=== PATIENT | female | born 1935 | race Caucasian/White ===

== ENCOUNTER 2020-04-03 15:21 | Outpatient (REF) | payer MEDICARE, OTHER, SELFPAY ==
[2020-04-03 17:07] LABS: Alanine Aminotransferase 26 U/L (0-31); Albumin Level 4.1 g/dL (3.5-5.0); Alkaline Phosphatase 74 U/L (39-117); Anion Gap 14 (12-20); Aspartate Amino Transferase 18 U/L (5-31); Bilirubin Total 0.4 mg/dL (0.0-1.0); Blood Urea Nitrogen 26 mg/dL (9-16); Carbon Dioxide 26 mmol/L (22-29); Chloride 105 mmol/L (96-108); Estimated Glomerular Filt Rate 50; Glucose Random 112 mg/dL (60-115); Potassium 4.3 mmol/l (3.3-5.1); Sodium 141 mmol/L (135-145); Total Protein 6.9 g/dL (6.5-8.0)
[2020-04-03 17:10] LABS: B Type Natriuretic Peptide 68 pg/mL (<100)
[2020-04-03 17:19] LABS: Hematocrit 38.5 % (37-47); Hemoglobin 12.6 g/dl (12.0-16.0); Mean Corpuscular HGB Conc 32.7 g/dl (31.0-35.0); Mean Corpuscular Hemoglobin 28.1 pg (27.0-33.0); Mean Corpuscular Volume 85.9 fL (80-98); Platelet Count 278 X10*3/uL (160-400); Red Blood Count 4.48 X10*6/uL (4.20-5.50); Red Cell Distribution Width 16.9 % (11.0-16.0); White Blood Count 7.5 X10*3/uL (4.8-10.8)
== END 2020-04-03 15:22 | disposition home or self-care (01) ==
LOC: HO.HMGCLDS 15:21
PROVIDERS: PCP Internal Medicine; Visit Provider Internal Medicine
DX: E03.9 Hypothyroidism, unspecified (principal); I10 Essential (primary) hypertension; R06.00 Dyspnea, unspecified
CPT/HCPCS: 36415; 80053; 83880; 84443; 85027

== ENCOUNTER 2020-08-21 07:02 | Outpatient (REF) | payer MEDICARE, OTHER, SELFPAY ==
[2020-08-21 11:30] LABS: Hematocrit 38.5 % (37-47); Hemoglobin 12.1 g/dl (12.0-16.0); Mean Corpuscular HGB Conc 31.4 g/dl (31.0-35.0); Mean Corpuscular Hemoglobin 27.6 pg (27.0-33.0); Mean Corpuscular Volume 87.7 fL (80-98); Mean Platelet Volume 11.1 fL (9.4-12.3); Platelet Count 231 X10*3/uL (160-400); Red Blood Count 4.39 X10*6/uL (4.20-5.50); Red Cell Distribution Width 17.4 % (11.0-16.0); White Blood Count 7.1 X10*3/uL (4.8-10.8)
[2020-08-21 11:44] LABS: Estimated Average Glucose 128 mg/dL; Hemoglobin A1c % 6.1 %
[2020-08-21 12:13] LABS: Alanine Aminotransferase 37 U/L (0-31); Alkaline Phosphatase 69 U/L (39-117); Anion Gap 15 (12-20); Aspartate Amino Transferase 25 U/L (5-31); Bilirubin Total 0.6 mg/dL (0.0-1.0); Blood Urea Nitrogen 19 mg/dL (9-16); Calcium 8.7 mg/dL (8.4-10.2); Carbon Dioxide 24 mmol/L (22-29); Chloride 106 mmol/L (96-108); Cholesterol 166 mg/dL; Estimated Glomerular Filt Rate 50; Glucose Fasting 108 mg/dL (60-99); HDL Cholesterol 61 mg/dL; LDL Cholesterol Calculated 92 mg/dl; Potassium 4.2 mmol/L (3.3-5.1); Sodium 141 mmol/L (135-145); Total Protein 6.8 g/dL (6.5-8.0); Triglycerides 67 mg/dL
[2020-08-21 12:36] LABS: TSH reflex Free T4 2.44 uIU/mL (0.32-4.0)
== END 2020-08-21 07:03 | disposition home or self-care (01) ==
LOC: HO.HMGCLDS 07:02
PROVIDERS: PCP Internal Medicine; Visit Provider Internal Medicine
DX: E03.9 Hypothyroidism, unspecified (principal); E11.9 Type 2 diabetes mellitus without complications; I10 Essential (primary) hypertension; K58.9 Irritable bowel syndrome, unspecified; R06.00 Dyspnea, unspecified
CPT/HCPCS: 36415; 80053; 80061; 83036; 84443; 85027

== ENCOUNTER 2020-09-26 13:57 | Outpatient (REF) | payer MEDICARE, OTHER, SELFPAY ==
--- NOTE | ~2020-09-26 | US_ITS ---
EXAMINATION: US RETROPERITONEAL LIMITED (RENAL ONLY) CLINICAL INFORMATION: Nephrolithiasis. COMPARISON: CT abdomen and pelvis without contrast dated 10/04/2019. KUBs dated 03/14/2019 and 12/19/2018. Renals only ultrasounds dated 03/14/2019 and 12/19/2018. TECHNIQUE: Real-time imaging of the kidneys. FINDINGS: RIGHT KIDNEY: 10.2 x 3.8 x 5.0 cm (SAG x AP x TRV). The kidney is normal in size, contour, and echogenicity. Renal cortical thickness is normal. No hydronephrosis. There are multiple anechoic cysts. The upper pole cyst measures 2.0 x 1.8 x 1.9, lower pole cyst measures 3.5 x 3.0 x 3.3 and a mid pole cyst measures 1.6 x 1.4 x 2.0 cm.. There are multiple clusters of echogenic stones. A lower pole echogenic stone measures 0.6 was 0.4 x 0.9 cm. Mid pole stone measures 0.6 x 0.4 x 0.8 cm. Upper pole echogenic stone measures 0.8 x 0.5 x 0.6 cm. LEFT KIDNEY: 11.2 x 4.9 x 4.3 cm (SAG x AP x TRV). The kidney is normal in size, contour, and echogenicity. Renal cortical thickness is normal. No hydronephrosis. There is complex cyst in midpole with septations and vascularity measuring 2.8 x 2.3 x 2.5 cm. There are several echogenic clusters of stone. A midpole stones measure 0.9 x 1.5 x 0.8 cm and 0.3 x 0.4 x 0.9 cm. An upper pole echogenic stone measures 0.4 x 0.4 x 0.3 cm in lower pole echogenic stone measures 0.8 x 0.4 x 0.7 cm. US/US renal BI IMPRESSION: Bilateral nonobstructive echogenic calculi. Bilateral renal cysts. There is a complex cyst with septations.
== END 2020-09-26 13:58 | disposition home or self-care (01) ==
LOC: HO.HMGCX 13:57
PROVIDERS: PCP Internal Medicine; Visit Provider Urology
DX: N20.0 Calculus of kidney (principal)
CPT/HCPCS: 76775

== ENCOUNTER → 2020-10-09 11:48 | Outpatient (BNVA) | payer MEDICARE, OTHER, SELFPAY | PROVIDERS: PCP Internal Medicine; Visit Provider Urology | CPT/HCPCS: Q3014 ==

== ENCOUNTER 2020-12-25 07:47 | Outpatient (REF) | payer MEDICARE, OTHER, SELFPAY ==
[2020-12-25 12:01] LABS: Estimated Average Glucose 126 mg/dL
[2020-12-25 12:15] LABS: Alanine Aminotransferase 42 U/L (0-31); Albumin Level 3.9 g/dL (3.5-5.0); Alkaline Phosphatase 73 U/L (39-117); Anion Gap 11 (12-20); Aspartate Amino Transferase 24 U/L (5-31); Bilirubin Total 0.3 mg/dL (0.0-1.0); Blood Urea Nitrogen 19 mg/dL (9-16); Calcium 8.6 mg/dL (8.4-10.2); Carbon Dioxide 27 mmol/L (22-29); Chloride 106 mmol/L (96-108); Cholesterol 189 mg/dL; Estimated Glomerular Filt Rate 51; Glucose Fasting 109 mg/dL (60-99); HDL Cholesterol 67 mg/dL; LDL Cholesterol Calculated 107 mg/dl; Potassium 4.7 mmol/L (3.3-5.1); Sodium 139 mmol/L (135-145); Total Protein 6.8 g/dL (6.5-8.0); Triglycerides 77 mg/dL
[2020-12-25 12:25] LABS: Creatinine Urine 89.13 mg/dL; Microalbum/Creatinine Ratio Ur 143.6 ug/mg cr
== END 2020-12-25 07:48 | disposition home or self-care (01) ==
LOC: HO.HMGCLDS 07:47
PROVIDERS: PCP Internal Medicine; Visit Provider Internal Medicine
DX: E11.9 Type 2 diabetes mellitus without complications (principal); E78.5 Hyperlipidemia, unspecified; E03.9 Hypothyroidism, unspecified; I10 Essential (primary) hypertension
CPT/HCPCS: 36415; 80053; 80061; 82043; 83036

== ENCOUNTER 2021-02-27 08:50 | Outpatient (REF) | payer MEDICARE, OTHER, SELFPAY ==
[2021-02-27 11:37] LABS: Estimated Average Glucose 134 mg/dL; Hemoglobin A1c % 6.3 %
[2021-02-27 11:40] LABS: Alanine Aminotransferase 22 U/L (0-31); Albumin Level 3.8 g/dL (3.5-5.0); Alkaline Phosphatase 85 U/L (39-117); Anion Gap 12 (12-20); Aspartate Amino Transferase 19 U/L (5-31); Bilirubin Total 0.3 mg/dL (0.0-1.0); Blood Urea Nitrogen 19 mg/dL (9-16); Calcium 8.9 mg/dL (8.4-10.2); Carbon Dioxide 27 mmol/L (22-29); Chloride 104 mmol/L (96-108); Cholesterol 177 mg/dL; Estimated Glomerular Filt Rate 49; Glucose Fasting 128 mg/dL (60-99); HDL Cholesterol 53 mg/dL; LDL Cholesterol Calculated 104 mg/dl; Sodium 139 mmol/L (135-145); Total Protein 6.7 g/dL (6.5-8.0); Triglycerides 103 mg/dL
== END 2021-02-27 08:51 | disposition home or self-care (01) ==
LOC: HO.HMGCLDS 08:50
PROVIDERS: PCP Internal Medicine; Visit Provider Internal Medicine
DX: E03.9 Hypothyroidism, unspecified (principal); E78.5 Hyperlipidemia, unspecified; E11.9 Type 2 diabetes mellitus without complications
CPT/HCPCS: 36415; 80053; 80061; 83036

== ENCOUNTER 2021-08-04 12:55 | Outpatient (REF) | payer MEDICARE, OTHER, SELFPAY ==
--- NOTE | ~2021-08-04 | US_ITS ---
EXAMINATION: US RENAL BILATERAL CLINICAL INFORMATION: Calculus of kidney. COMPARISON: Ultrasound renal 09/26/2020 and 03/14/2019. CT abdomen and pelvis 10/04/2019. X-ray KUB 03/14/2019. TECHNIQUE: Real-time imaging of the kidneys. FINDINGS: RIGHT KIDNEY: 10.5 x 4.0 x 5.5 cm (SAG x AP x TRV). There is a 1.5 x 1.3 x 1.4 cm upper pole cyst. There is a 1.9 x 2.0 x 2.1 cm upper pole cyst. There is a 3.9 x 3.4 x 3.1 cm lower pole cyst. Lower pole calculi measure 0.7 x 0.5 x 0.9 cm and 1.2 x 0.6 x 1.0 cm. No hydronephrosis. Diffuse renal cortical thinning. LEFT KIDNEY: 11.3 x 4.0 x 5.1 cm (SAG x AP x TRV). There is a 2.7 x 2.7 x 3.0 cm mid pole cyst with septation. There is a 1.0 x 0.4 x 1.0 cm lower pole calculus. Diffuse renal cortical thinning. No hydronephrosis. US/US renal BI IMPRESSION: 1. Bilateral renal cysts. Left renal 3.0 cm cyst with thin septation. 2. Bilateral nonobstructive calculi. No hydronephrosis.
== END 2021-08-04 12:56 | disposition home or self-care (01) ==
LOC: HO.HMGCX 12:55
PROVIDERS: PCP Internal Medicine; Visit Provider Urology
DX: N20.0 Calculus of kidney (principal)
CPT/HCPCS: 76775

== ENCOUNTER 2021-08-28 07:53 | Outpatient (REF) | payer MEDICARE, OTHER, SELFPAY ==
[2021-08-28 11:41] LABS: Estimated Average Glucose 140 mg/dL; Hemoglobin A1c % 6.5 %
[2021-08-28 12:09] LABS: TSH reflex Free T4 14.36 uIU/mL (0.32-4.0)
[2021-08-28 12:13] LABS: Alanine Aminotransferase 30 U/L (0-31); Alkaline Phosphatase 69 U/L (39-117); Anion Gap 12 (12-20); Aspartate Amino Transferase 23 U/L (5-31); Bilirubin Total 0.4 mg/dL (0.0-1.0); Blood Urea Nitrogen 19 mg/dL (9-16); Calcium 9.5 mg/dL (8.4-10.2); Carbon Dioxide 26 mmol/L (22-29); Chloride 104 mmol/L (96-108); Cholesterol 177 mg/dL; Estimated Glomerular Filt Rate 48; Glucose Fasting 121 mg/dL (60-99); HDL Cholesterol 68 mg/dL; LDL Cholesterol Calculated 92 mg/dl; Potassium 4.6 mmol/L (3.3-5.1); Sodium 137 mmol/L (135-145); Triglycerides 87 mg/dL
[2021-08-28 13:26] LABS: Free T4 (Free Thyroxine) 0.99 ng/dL (0.71-1.85)
== END 2021-08-28 07:54 | disposition home or self-care (01) ==
LOC: HO.HMGCLDS 07:53
PROVIDERS: Visit Provider Internal Medicine
DX: E03.9 Hypothyroidism, unspecified (principal); E11.9 Type 2 diabetes mellitus without complications; E78.5 Hyperlipidemia, unspecified; I10 Essential (primary) hypertension
CPT/HCPCS: 36415; 80053; 80061; 83036; 84439; 84443

== ENCOUNTER → 2021-09-02 08:30 | Outpatient (BNVA) | payer MEDICARE, OTHER, SELFPAY | PROVIDERS: PCP Internal Medicine; Visit Provider Urology | DX: Z13.89 Encounter for screening for other disorder (principal) | CPT/HCPCS: Q3014 ==

== ENCOUNTER 2021-11-04 07:50 | Outpatient (REF) | payer MEDICARE, OTHER, SELFPAY ==
[2021-11-04 12:22] LABS: TSH reflex Free T4 5.43 uIU/mL (0.32-4.0)
[2021-11-04 13:27] LABS: Free T4 (Free Thyroxine) 1.12 ng/dL (0.71-1.85)
== END 2021-11-04 07:51 | disposition home or self-care (01) ==
LOC: HO.HMGCLDS 07:50
PROVIDERS: PCP Internal Medicine; Visit Provider Internal Medicine
DX: E03.9 Hypothyroidism, unspecified (principal)
CPT/HCPCS: 36415; 84439; 84443

== ENCOUNTER → 2021-12-02 07:19 | Outpatient (REF) | payer MEDICARE, OTHER, SELFPAY ==
--- NOTE | 2021-12-02 07:28 | CA_ITS ---
Transthoracic Echocardiogram Patient (Last, First, Middle): Liya Dang, Gender: Female Date of : 1935 Age: 86 Procedure Date: 12/02/2021 Procedure Type: Transthoracic Echocardiogram Location: OP Height: 162.56 cm Weight: 80.29 kg BSA: 1.86 m2 Heart Rate: 63 bpm BP: 128 / 60 mmHg Security Installation Sales Technician: SB Referring MD: Lisa Young MD Wheel Buffer: Florian Dukes MD Symptoms: I35.0 - Nonrheumatic aortic (valve) stenosis Study Quality: Adequate ECG Rhythm: Sinus Conclusions: - 1. Normal LV systolic function with moderate LVH with grade 2 diastolic dysfunction 2. Severe aortic stenosis 3. Mild biatrial enlargement 4. Normal RV systolic pressure 5. No pericardial effusion Findings Left Ventricle Normal left ventricular size and systolic function. There is moderately increased left ventricular wall thickness. The visually estimated ejection fraction is between 65-70%. Spectral Doppler is indicative of a pseudonormal filling pattern. E/E prime ratio is >15, consistent with elevated filling pressures. Evidence suggests grade II (moderate) diastolic dysfunction. Right Ventricle Normal right ventricular cavity size and systolic function. Atria The left atrium is mildly dilated. The right atrium is mildly dilated. Aortic Valve There is moderate calcification of the aortic valve. There is severe aortic valve stenosis. The peak aortic gradient is 65 mmHg.The mean gradient is 40 mmHg. The aortic valve area is 0.84 cm2. Mitral Valve There is moderate anterior and severe posterior mitral leaflet thickening. There is severe mitral annular calcification. There is mild mitral valve regurgitation. There is mild mitral valve stenosis. Pulmonic Valve The pulmonic valve was not well visualized. Tricuspid Valve Likely normal tricuspid valve structure and function. There is mild tricuspid valve regurgitation. The right ventricular systolic pressure is normal. Normal right atrial pressure. There is no evidence of pulmonary hypertension. Great Vessels All visible segments of the aorta are normal in size. The pulmonary artery was not well visualized. Venous The inferior vena cava is normal in size and collapses greater than 50% with inspiration. Pericardium/Pleural There is no evidence of pericardial effusion. Prior Study Comparison No prior study available for comparison. Measurements 2D Linear Measurements IVSd: 1.46 0.6-0.9/0.6-1.0 cm LVIDd: 5.02 3.9-5.3/4.2-5.9 cm LVIDd Index: 2.70 2.4-3.2/2.2-3.1 cm/m2 LVIDs: 2.94 2.0-3.6 cm LVPWd: 1.42 0.7-1.1 cm LA Diam: 3.60 2.7-3.8/3.0-4.0 cm LAIDs Index: 1.94 1.5-2.3 cm/m2 LV Mass: 317.80 67-162/88-224 g LV Mass Index: 170.86 43-95/49-115 g/m2 LVOT Diam: 1.90 3.0+(-)1.3 cm 2D Systolic Function EF 4C: 69.20 >55% EF 2C: 61.30 >55% EF BiP: 65.50 >55% Mitral Valve MV VTI: 0.42 MV Pk Terrell: 1.32 MV Mn Terrell: 0.81 MV Pk Grad: 7.00 MV Mn Grad: 3.00 MV Pk E: 1.22 MV PK A: 1.00 MV Decel Time: 288.00 E/A: 1.20 E'Lateral: 5.55 E'Medial: 4.05 E/E' Med: 30.10 E/E' Lat: 22.00 PHT: 84.00 MVA PHT: 2.62 MVA Continuity: 2.05 Decel [place]: 4.23 Aortic Valve AoV Pk Terrell: 4.02 AoV Mn Terrell: 2.98 AoV VTI: 1.03 AoV Pk Grad: 65.00 Aov Mn Grad: 40.00 MARTIN Cont.VTI: 0.84 LVOT LVOT Pk Terrell: 1.27 LVOT Mn Terrell: 0.82 LVOT VTI: 0.31 LVOT Pk Grad: 6.00 LVOT Mn Grad: 3.00 LVOT Diam: 1.90 LVOT Area: 2.84 Diastolic Function MV Pk E: 1.22 MV Pk A: 1.00 E/A: 1.20 E'Medial: 4.05 E/E' Med: 30.10 E' Laterial: 5.55 E/E' Lat: 22.00 Right Ventricle TAPSE (mm): 20.40 TVS' Terrell: 10.90 Tricuspid Valve TR Pk Terrell: 2.72 TR Pk Grad: 30.00 RA Press: 3.00 RVSP: 33.00 Great Vessels Aorta Sinus of Valsalva: 2.90 2.0-3.5 cm Ao Asc: 3.30 2.1-3.4 cm Pulmonary Valve PV Pk Terrell: 1.21 Peak PV Grad: 6.00 Updated in Other Vendor System with Status of Final Florian Dukse MD electronically signed on 12/02/2021 11:30:18 AM with status of Final
== END ==
LOC: HO.CARD 07:19
PROVIDERS: Visit Provider Internal Medicine
DX: I35.0 Nonrheumatic aortic (valve) stenosis (principal); I10 Essential (primary) hypertension; E78.5 Hyperlipidemia, unspecified; E03.9 Hypothyroidism, unspecified; E11.9 Type 2 diabetes mellitus without complications
CPT/HCPCS: 93306

== ENCOUNTER 2021-12-31 09:04 | Outpatient (REF) | payer MEDICARE, OTHER, SELFPAY ==
[2021-12-31 11:19] LABS: Hematocrit 34.9 % (37.0-47.0); Hemoglobin 11.5 g/dl (12.0-16.0); Mean Corpuscular Hemoglobin 27.6 pg (27.0-33.0); Mean Corpuscular Volume 83.9 fL (80.0-98.0); Mean Platelet Volume 10.8 fL (9.4-12.3); Platelet Count 221 X10*3/uL (160-400); Red Blood Count 4.16 X10*6/uL (4.20-5.50); Red Cell Distribution Width 15.8 % (11.0-16.0); White Blood Count 6.1 X10*3/uL (4.8-10.8)
[2021-12-31 11:24] LABS: Estimated Average Glucose 128 mg/dL; Hemoglobin A1c % 6.1 %
[2021-12-31 11:35] LABS: Alanine Aminotransferase 34 U/L (0-31); Alkaline Phosphatase 66 U/L (39-117); Anion Gap 15 (12-20); Aspartate Amino Transferase 29 U/L (5-31); Bilirubin Total 0.4 mg/dL (0.0-1.0); Blood Urea Nitrogen 23 mg/dL (9-16); Calcium 9.3 mg/dL (8.4-10.2); Carbon Dioxide 23 mmol/L (22-29); Chloride 101 mmol/L (96-108); Cholesterol 155 mg/dL; Estimated Glomerular Filt Rate 47; Glucose Fasting 118 mg/dL (60-99); HDL Cholesterol 60 mg/dL; LDL Cholesterol Calculated 78 mg/dl; Potassium 4.6 mmol/L (3.3-5.1); Sodium 134 mmol/L (135-145); Total Protein 6.9 g/dL (6.5-8.0); Triglycerides 87 mg/dL
[2021-12-31 11:48] LABS: TSH reflex Free T4 6.21 uIU/mL (0.32-4.0)
[2021-12-31 12:08] LABS: Creatinine Urine 77.06 mg/dL; Microalbum/Creatinine Ratio Ur 53.2 ug/mg cr
[2021-12-31 13:23] LABS: Free T4 (Free Thyroxine) 1.19 ng/dL (0.71-1.85)
== END 2021-12-31 09:05 | disposition home or self-care (01) ==
LOC: HO.HMGCLDS 09:04
PROVIDERS: PCP Internal Medicine; Visit Provider Internal Medicine
DX: E03.9 Hypothyroidism, unspecified (principal); E11.9 Type 2 diabetes mellitus without complications; E78.5 Hyperlipidemia, unspecified; I10 Essential (primary) hypertension
CPT/HCPCS: 36415; 80053; 80061; 82043; 83036; 84439; 84443; 85027

== ENCOUNTER → 2022-01-07 08:55 | Outpatient (BNVA) | payer MEDICARE, OTHER, SELFPAY | PROVIDERS: PCP Internal Medicine; Visit Provider Internal Medicine Rheumatology | DX: M70.61 Trochanteric bursitis, right hip (principal); M70.62 Trochanteric bursitis, left hip | CPT/HCPCS: 20610; 99212 ==

== ENCOUNTER 2022-02-26 09:54 | Outpatient (REF) | payer MEDICARE, OTHER, SELFPAY ==
--- NOTE | ~2022-02-26 | XR_ITS ---
EXAMINATION: XR ABDOMEN KUB CLINICAL INDICATION: Renal calculus. COMPARISON: 03/14/2019 TECHNIQUE: 2 views of the abdomen. FINDINGS: Imaged lung bases are clear. Surgical clips project over the right upper quadrant. The bowel gas pattern is nonobstructive. Moderate gas and stool throughout the colon. The renal shadows are mostly obscured by overlying bowel contents. Possible calculi projecting over the lower poles. XR/XR KUB IMPRESSION: Obscuration of the renal shadows makes it difficult to evaluate for underlying calculi. Consider follow-up CT renal stone protocol.
== END 2022-02-26 09:55 | disposition home or self-care (01) ==
LOC: HO.XRAY 09:54
PROVIDERS: PCP Internal Medicine; Visit Provider Urology
DX: N20.0 Calculus of kidney (principal)
CPT/HCPCS: 74018

== ENCOUNTER 2022-02-27 07:53 | Outpatient (REF) | payer MEDICARE, OTHER, SELFPAY ==
[2022-02-27 12:09] LABS: Anion Gap 15 (12-20); Blood Urea Nitrogen 16 mg/dL (9-16); Calcium 9.5 mg/dL (8.4-10.2); Carbon Dioxide 26 mmol/L (22-29); Chloride 99 mmol/L (96-108); Estimated Glomerular Filt Rate 52; Glucose Random 127 mg/dL (60-115); Potassium 4.4 mmol/L (3.3-5.1); Sodium 136 mmol/L (135-145)
[2022-02-27 12:13] LABS: TSH reflex Free T4 0.65 uIU/mL (0.32-4.0)
== END 2022-02-27 07:54 | disposition home or self-care (01) ==
LOC: HO.HMGCLDS 07:53
PROVIDERS: PCP Internal Medicine; Visit Provider Internal Medicine
DX: E03.9 Hypothyroidism, unspecified (principal); I10 Essential (primary) hypertension
CPT/HCPCS: 36415; 80048; 84443

== ENCOUNTER → 2022-03-10 11:26 | Outpatient (BNVA) | payer MEDICARE, OTHER, SELFPAY | PROVIDERS: PCP Internal Medicine; Visit Provider Urology | DX: N20.0 Calculus of kidney (principal) | CPT/HCPCS: 99212 ==

== ENCOUNTER 2022-03-31 13:40 | Outpatient (RCR) | payer MEDICARE, OTHER, SELFPAY ==
--- NOTE | 2022-03-31 19:01 | MHC.PT.EP ---
[facility] [place] Office [place] Office [place] Office [address] Srikanth Guardado [address] [phone] F: [phone] F: [phone] F: [phone] F: [phone] Physical Therapy Plan of Care Date of Evaluation: Date of Surgery: Diagnosis: Cervicalgia Assessment: Pt is an 86 y/o female referred to PT reporting about 1 year of worsening cervical pain. Reports R > L sided cervical pain with a pulling sensation; reports limited cervical ROM. Reports she has been having MOODY which she typically does not experience which she describes as R hemispherical. Reports pain with transitional movements are panful like getting out of bed, she has decreased tolerance for driving and turning her head form side to side, as well as reading and watching TV seocndary to decreased thoracic, scapular and cervical posture, decreased clerical strength and ROM, increased cervical accessory tissue tension, MOODY, and pain with ROM. Pt is deemed an appropriate candidate to receive skilled PT services to address their physical impairments in order to improve their functional ability. Frequency and Duration: The patient will be seen 2 x/ wk x 4 wks. Short Term Goals: Initiate HEP. Improve baseline pain with activity from 6/10 to < 4/10. Tripe Cooker Goals: I with HEP. Symmetrical painless cervical AROM rotation achieved. Pt will report at least 50% improvement of her MOODY Sx. Pt will no longer be limited of driving d/t cervical pain. Treatment Plan: Modalities to reduce pain, spasms and effusion. Manual therapy to restore motion and function. Therapeutic exercise to improve strength and flexibility. Neuromuscular re-education for posture and balance. Therapeutic activities to return to functional activities of daily living. Electronically signed by: Guevara Marte PT Please sign and return to therapist. Thank you for your referral.
--- NOTE | 2022-06-26 10:22 | MHC.PT.DC ---
[facility] [place] Office [place] Office [place] Office [address] Srikanth Guardado [address] [phone] F: [phone] F: [phone] F: [phone] F: [phone] Physical Therapy Discharge Report Diagnosis: Cervicalgia Date of Surgery: Date of Evaluation: 03/31/22 Date of Discharge: 06/26/22 Treatments to Date: 1 Cancellations to Date: No Shows to Date: Discharge Status: Patient Elected to Stop Visit Non-compliance Discharge Summary: Electronically signed by: Guevara Marte PT Please sign and return to therapist. Thank you for your referral.
== END 2022-06-26 10:22 | disposition home or self-care (01) ==
LOC: HO.PTCHIC 13:40
PROVIDERS: PCP Internal Medicine; Visit Provider Internal Medicine
DX: M54.2 Cervicalgia (principal)
CPT/HCPCS: 97110; 97162

== ENCOUNTER → 2022-06-15 11:39 | Outpatient (BNVA) | payer MEDICARE, OTHER, SELFPAY | PROVIDERS: PCP Internal Medicine; Visit Provider Internal Medicine Rheumatology | DX: M70.61 Trochanteric bursitis, right hip (principal); M70.62 Trochanteric bursitis, left hip; M17.12 Unilateral primary osteoarthritis, left knee; I35.0 Nonrheumatic aortic (valve) stenosis | CPT/HCPCS: 20610; 99212 ==

== ENCOUNTER 2022-09-22 07:08 | Outpatient (REF) | payer MEDICARE, OTHER, SELFPAY ==
[2022-09-22 11:18] LABS: MANUAL DIFF FLAG NO
[2022-09-22 11:34] LABS: Basophils Absolute Auto 0.1 X10*3/uL (0.0-0.2); Eosinophils Absolute Auto 0.5 X10*3/uL (0.0-0.4); Eosinophils Percent Auto 8.7 % (0-4); Hematocrit 35.3 % (37.0-47.0); Hemoglobin 11.3 g/dl (12.0-16.0); Imm Gran Abs Auto 0.02 X10*3/uL (0.00-0.03); Imm Gran Pct Auto 0.3 % (0.0-0.4); Lymphocytes Absolute Auto 2.2 X10*3/uL (1.2-4.9); Lymphocytes Percent Auto 36.2 % (20-40); Mean Corpuscular Hemoglobin 27.8 pg (27.0-33.0); Mean Corpuscular Volume 86.9 fL (80.0-98.0); Mean Platelet Volume 10.8 fL (9.4-12.3); Monocytes Absolute Auto 0.6 X10*3/uL (0.1-1.2); Monocytes Percent Auto 9.4 % (2-11); Neutrophils Absolute Auto 2.7 x10*3/uL (2.0-8.3); Neutrophils Percent Auto 44.4 % (45-73); Platelet Count 230 X10*3/uL (160-400); Red Blood Count 4.06 X10*6/uL (4.20-5.50); Red Cell Distribution Width 16.6 % (11.0-16.0); White Blood Count 6.1 X10*3/uL (4.8-10.8)
[2022-09-22 12:15] LABS: Alanine Aminotransferase 17 U/L (0-31); Albumin Level 3.8 g/dL (3.5-5.0); Alkaline Phosphatase 65 U/L (39-117); Anion Gap 12 (12-20); Aspartate Amino Transferase 22 U/L (5-31); Bilirubin Total 0.5 mg/dL (0.0-1.0); Blood Urea Nitrogen 16 mg/dL (9-16); Calcium 9.1 mg/dL (8.4-10.2); Carbon Dioxide 24 mmol/L (22-29); Chloride 107 mmol/L (96-108); Cholesterol 165 mg/dL; Estimated Average Glucose 120 mg/dL; Estimated Glomerular Filt Rate 56; Glucose Fasting 119 mg/dL (60-99); HDL Cholesterol 53 mg/dL; Hemoglobin A1c % 5.8 %; LDL Cholesterol Calculated 93 mg/dl; Potassium 4.3 mmol/L (3.3-5.1); Sodium 139 mmol/L (135-145); TSH reflex Free T4 0.87 uIU/mL (0.32-4.0); Total Protein 6.5 g/dL (6.5-8.0); Triglycerides 99 mg/dL
== END 2022-09-22 07:09 | disposition home or self-care (01) ==
LOC: HO.HMGCLDS 07:08
PROVIDERS: PCP Internal Medicine; Visit Provider Internal Medicine
DX: E11.9 Type 2 diabetes mellitus without complications (principal); I10 Essential (primary) hypertension; E78.5 Hyperlipidemia, unspecified
CPT/HCPCS: 36415; 80053; 80061; 83036; 84443; 85025

== ENCOUNTER → 2022-10-28 10:07 | Outpatient (BNVA) | payer MEDICARE, OTHER, SELFPAY | PROVIDERS: PCP Internal Medicine; Visit Provider Internal Medicine Rheumatology | DX: M70.61 Trochanteric bursitis, right hip (principal); M70.62 Trochanteric bursitis, left hip; M17.12 Unilateral primary osteoarthritis, left knee; Z96.651 Presence of right artificial knee joint | CPT/HCPCS: 20610; 99212 ==

== ENCOUNTER 2022-12-29 07:40 | Outpatient (REF) | payer MEDICARE, OTHER, SELFPAY ==
[2022-12-29 11:37] LABS: MANUAL DIFF FLAG NO
[2022-12-29 11:57] LABS: Basophils Absolute Auto 0.1 X10*3/uL (0.0-0.2); Basophils Percent Auto 0.7 % (0-2); Eosinophils Absolute Auto 0.3 X10*3/uL (0.0-0.4); Eosinophils Percent Auto 3.9 % (0-4); Hematocrit 35.5 % (37.0-47.0); Hemoglobin 11.7 g/dl (12.0-16.0); Imm Gran Abs Auto 0.02 X10*3/uL (0.00-0.03); Imm Gran Pct Auto 0.3 % (0.0-0.4); Lymphocytes Percent Auto 28.5 % (20-40); Mean Platelet Volume 10.3 fL (9.4-12.3); Monocytes Absolute Auto 0.6 X10*3/uL (0.1-1.2); Monocytes Percent Auto 8.6 % (2-11); Neutrophils Absolute Auto 4.1 x10*3/uL (2.0-8.3); Platelet Count 292 X10*3/uL (160-400); Red Blood Count 4.33 X10*6/uL (4.20-5.50); Red Cell Distribution Width 16.2 % (11.0-16.0); White Blood Count 7.1 X10*3/uL (4.8-10.8)
[2022-12-29 12:05] LABS: Estimated Average Glucose 126 mg/dL
[2022-12-29 12:24] LABS: Alanine Aminotransferase 19 U/L (0-31); Albumin Level 3.9 g/dL (3.5-5.0); Alkaline Phosphatase 87 U/L (39-117); Anion Gap 13 (12-20); Aspartate Amino Transferase 20 U/L (5-31); Bilirubin Total 0.4 mg/dL (0.0-1.0); Blood Urea Nitrogen 10 mg/dL (9-16); Calcium 9.5 mg/dL (8.4-10.2); Carbon Dioxide 24 mmol/L (22-29); Chloride 99 mmol/L (96-108); Estimated Glomerular Filt Rate > 60; Glucose Fasting 120 mg/dL (60-99); Potassium 4.2 mmol/L (3.3-5.1); Sodium 132 mmol/L (135-145); TSH reflex Free T4 1.86 uIU/mL (0.32-4.0); Total Protein 6.9 g/dL (6.5-8.0)
== END 2022-12-29 07:41 | disposition home or self-care (01) ==
LOC: HO.HMGCLDS 07:40
PROVIDERS: PCP Internal Medicine; Visit Provider Internal Medicine
DX: I35.0 Nonrheumatic aortic (valve) stenosis (principal); I10 Essential (primary) hypertension; E11.9 Type 2 diabetes mellitus without complications; E78.5 Hyperlipidemia, unspecified
CPT/HCPCS: 36415; 80053; 83036; 84443; 85025

== ENCOUNTER 2023-01-05 13:20 | Outpatient (AMB) | payer MEDICARE, OTHER, SELFPAY ==
--- NOTE | 2023-01-05 13:51 | MHC.PC.OV ---
Vital Signs 01/05/23 13:51 01/05/23 13:52 Height 5 ft 4 in 5 ft 4 in Weight 150 lb BMI 25.7 BP 118/70 Blood Pressure Location Lt brachial Position Sitting Pulse 84 Pulse Source Pulse Oximeter Pulse Oximetry (%) 97 Oxygen Delivery Method Room Air Intake Visit Reasons: 4 month follow up DM Intake Note: Pt is here today for 4 months follow up visit on DM. Allergies Penicillins [PCN] Allergy (Unknown, Verified 01/05/23 13:51) SWELLING baclofen Adverse Reaction (Unknown, Verified 01/05/23 13:51) vivid dreams, agitation flu vaccine Allergy (Unknown, Uncoded 01/05/23 13:51) unknown Medication List - Last Reconciled 01/05/23 by Lisa Young MD amlodipine 2.5 mg PO DAILY aspirin 1 tab PO DAILY atorvastatin 20 mg PO DAILY azelastine 1 - 2 sprays intranasal BID cholestyramine (with sugar) 4 gram 4 grams PO BID cyanocobalamin (vitamin B-12) 1,000 mcg PO DAILY levothyroxine 100 mcg PO DAILY loratadine (Claritin) 10 mg PO DAILY metformin 500 mg PO DAILY mv-mn-B.coag-B.subtilis-inulin 1 billion cell- 1 gram (Culturelle Probiotic-Multivit) tabs PO pyridoxine (vitamin B6) 50 mg PO DAILY 90 days Tobacco use date assessed: 01/05/23 Fall risk assessment: 1 Fall in past year Last assessed Fall Risk: 01/05/23 Dental Screening Dental Screen Date: 01/05/23 Did you have a dental visit in the last 12 months?: Yes Did you have a dental problem in the last 6 months where you did not have access to dental care?: No Was dental information given to patient?: Patient has dentist HPI 4 month follow up DM HPI Details Pt presents for f/u HTN, DM 2, hypothyroid, stable on meds. Patient has been under lot of stress related to her daughter getting . She complains of worsening anxiety, poor appetite and worsening of chronic neck pain and stiffness. She denies depression PFSH Medical History Annual physical exam Aortic stenosis Back pain Cough CARMEN (dyspnea on exertion) HTN (hypertension) Hyperlipidemia Hypothyroidism IBS (irritable bowel syndrome) Nephrolithiasis Type 2 diabetes mellitus Surgical History H/O colonoscopy History of knee replacement procedure of right knee History of total abdominal hysterectomy Hx of cholecystectomy Family History Father No problems noted. Mother No problems noted. Social History Housing: Condominium Alcohol intake: current Alcohol intake frequency: holidays/special occasions only Patient Tobacco Use Status: Never used Tobacco e-Cigarette/Vaping Use: Never Used Second Hand Smoke Exposure: No Current occupational status: retired Cognitive needs: No Hearing needs: No Vision needs: Yes Questionnaire Thrive Questionnaire Date Thrive assessed: 09/30/22 JARED-7 AMB Questionnaire JARED-7 Date JARED - 7 assessed: 09/30/22 Source: Developed by Drs. Filiberto Valero, Lindsey Roger, Liban Ko and colleagues, with an educational antonia from [employer]. Review of Systems Const All systems reviewed & are unremarkable except as noted in HPI and below Reports no additional complaints Eyes Reports no additional complaints ENT Reports no additional complaints Card Reports no additional complaints Resp Reports no additional complaints GI Reports no additional complaints Reports no additional complaints Musc Reports no additional complaints Physical exam (Primary Care) Vital Signs: Last Vital Signs Pulse 84 01/05/23 13:52 BP 118/70 01/05/23 13:52 Pulse Ox 97 01/05/23 13:52 Oxygen Delivery Method Room Air 01/05/23 13:52 BMI result Body Mass Index 25.7 Tobacco/Smoking Status: Tobacco use Status Tobacco use date assessed 01/05/23 01/05/23 13:51 Patient Tobacco Use Status Never used Tobacco 01/05/23 13:51 e-Cigarette/Vaping Use Never Used 01/05/23 13:51 Thrive Assessment: Date of Thrive Assessment Date Thrive assessed 09/30/22 01/05/23 13:51 Const General: no acute distress HENMT Head: Yes normal to inspection General nose exam: Normal external nose present Mouth: Normal oral and palatal mucosa present Throat: Yes posterior oropharynx normal Eyes General: appearance normal, both eyes and all related structures Neck Neck: Yes no lymphadenopathy and Yes supple Resp Effort & Inspection: normal respiratory effort Auscultation: clear to auscultation bilaterally Cardio Rhythm: regular rhythm Heart sounds: S1 normal heart sound present and S2 normal heart sound present GI Inspection: Yes normal to inspection Palpation (GI): Soft to palpation Percussion: Yes normal to percussion Auscultation: normal bowel sounds Assessment and Plan Assessment & Plan (1) Neck pain: Code(s): M54.2 - Cervicalgia Plan: Referred to physical therapy (2) Low sodium levels: Code(s): E87.1 - Hypo-osmolality and hyponatremia Plan: For hyponatremia patient was advised to eat well-balanced diet avoid excessive fluid intake and repeat sodium level in 1 week (3) Aortic stenosis: Comment: Echo severe , 12/22, s/p 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, [facility] Code(s): I35.0 - Nonrheumatic aortic (valve) stenosis Plan: Follow-up with Cardiology (4) Type 2 diabetes mellitus: Code(s): E11.9 - Type 2 diabetes mellitus without complications Plan: A1c is 6.0, continue ADA diet metformin and increase physical activity (5) Hypothyroidism: Code(s): E03.9 - Hypothyroidism, unspecified Plan: Continue levothyroxine (6) HTN (hypertension): Code(s): I10 - Essential (primary) hypertension Plan: Continue amlodipine (7) Anxiety: Code(s): F41.9 - Anxiety disorder, unspecified Plan: Start 25 mg of sertraline and follow-up in 1 month Orders: Orders PT Evaluation and Treatment Today M54.2 - Cervicalgia Electrolytes 1 Week E87.1 - Hypo-osmolality and hyponatremia Medications: New clindamycin HCl 600 mg (2 x 300 mg) PO ONCE 2 caps 2RF sertraline 25 mg PO DAILY 90 tabs 0RF Coding Level of Care Code Est Pt Level 4 (67182) Diagnoses Neck pain M54.2 Low sodium levels E87.1 Aortic stenosis I35.0 Type 2 diabetes mellitus E11.9 Hypothyroidism E03.9 HTN (hypertension) I10 Anxiety F41.9
[2023-01-05 13:52] VITALS: BP 118/70; PULSE 84; O2SAT 97; BMI 25.7
== END 2023-01-05 15:26 | disposition home or self-care (01) ==
PROVIDERS: PCP Internal Medicine; Visit Provider Internal Medicine
DX: E11.9 Type 2 diabetes mellitus without complications (principal); E03.9 Hypothyroidism, unspecified; I10 Essential (primary) hypertension; F41.9 Anxiety disorder, unspecified; M54.2 Cervicalgia; E87.1 Hypo-osmolality and hyponatremia; I35.0 Nonrheumatic aortic (valve) stenosis
CPT/HCPCS: 99214

== ENCOUNTER 2023-01-16 19:43 | Emergency (ER) | payer MEDICARE, OTHER, SELFPAY ==
--- NOTE | 2023-01-16 | ECG_ITS ---
Test Reason : DIZZINESS Blood Pressure : / mmHG Vent. Rate : 069 BPM Atrial Rate : 069 BPM P-R Int : 192 ms QRS Dur : 122 ms QT Int : 430 ms P-R-T Axes : -24 -43 052 degrees QTc Int : 460 ms Normal sinus rhythm Left axis deviation Left ventricular hypertrophy with QRS widening ( R in aVL , Bennie product , Romhilt-Hickey ) Abnormal ECG When compared with ECG of 07-NOV-2018 16:40, Premature atrial complexes are no longer Present Questionable change in QRS duration Referred By: Generic ED Physician Electronically Signed By:MAGO TAYLOR
--- NOTE | ~2023-01-16 | CT_ITS ---
EXAMINATION: CT HEAD WITHOUT CONTRAST CLINICAL INFORMATION: Dizziness. COMPARISON: None available. TECHNIQUE: Contiguous axial imaging was performed from the skull base to vertex without intravenous administration of contrast. This CT examination was performed using dose optimization techniques as appropriate, variously including the following: *Automated exposure control *Adjustment of mA and/or kV according to patient size (this includes techniques or standardized protocols for targeted exams where dose is matched to indication/reason for exam; i.e. extremities or head) *Use of iterative reconstruction technique DLP: 609 mGy-cm FINDINGS: There is no evidence of acute intracranial hemorrhage or territorial infarction. No abnormal mass effect or midline shift is seen. Bazan to white matter differentiation is well preserved. No extra-axial fluid collections are identified. No significant volume loss. No hydrocephalus. There is no abnormal attenuation within the brain parenchyma. The osseous structures and soft tissues are normal. The mastoid air cells and visualized portions of the paranasal sinuses are well aerated. CT/CT head/brain wo IV con IMPRESSION: No acute intracranial pathology.
--- NOTE | ~2023-01-16 | CT_ITS ---
EXAMINATION: CT ABDOMEN AND PELVIS WITH CONTRAST CLINICAL INFORMATION: Abdominal pain and nausea COMPARISON: CT abdomen pelvis 10/04/2019, renal ultrasound 08/04/2021 TECHNIQUE: Multidetector volumetric images were obtained from the superior aspect of the liver through the pubic symphysis following administration 85 mL of Omnipaque 350 intravenous contrast. Sagittal and coronal reformatted images were obtained on the technologist's workstation. Oral contrast: No This CT examination was performed using dose optimization techniques as appropriate, variously including the following: *Automated exposure control *Adjustment of mA and/or kV according to patient size (this includes techniques or standardized protocols for targeted exams where dose is matched to indication/reason for exam; i.e. extremities or head) *Use of iterative reconstruction technique DLP: 744 mGy-cm FINDINGS: LUNG BASES: The visualized lung bases are unremarkable. LIVER, GALLBLADDER, AND BILIARY TREE: The liver is normal in size, shape, and attenuation. No focal hepatic lesion or biliary ductal dilatation is present. The gallbladder is unremarkable with no evidence of radiopaque gallstones, gallbladder wall thickening, or obvious pericholecystic inflammatory changes. PANCREAS: Unremarkable. SPLEEN: Unremarkable. ADRENAL GLANDS: Unremarkable. KIDNEYS AND URETERS: The kidneys are normal in size, shape, and attenuation. Multiple bilateral benign Bosniak class I renal cysts are noted, the largest measuring 3.2 cm in the left mid kidney and 4.3 cm at the right lower pole. These require no additional imaging or follow-up. There is mild fullness in the collecting systems bilaterally, increased from 10/03/2020 no cause of obstruction. There is bilateral nephrolithiasis, right greater than left multiple nonobstructing calculi. Stone burden appears to have decreased bilaterally since a 10/04/2019 study dated for example, there was a large staghorn type calculus present in the left mid to upper kidney which is no longer seen. No solid renal masses are seen. No hydroureter, or ureteral calculi seen. No perinephric stranding. BLADDER: Unremarkable. GASTROINTESTINAL TRACT: Moderate-sized hiatal hernia is present. There is sigmoid diverticulosis without diverticulitis. The small and large bowel are otherwise unremarkable. The appendix is unremarkable. ABDOMINAL WALL: No significant hernia is appreciated. Small periumbilical hernia seen containing only fat. LYMPH NODES: No retroperitoneal lymphadenopathy. VASCULAR: There are aortoiliac calcifications without aneurysm. PELVIC VISCERA: Again seen are left ovarian cysts which appear larger on today's study compared to 2019 measuring 3.9 cm and 2.6 cm. The uterus is not seen. OSSEOUS STRUCTURES: Unremarkable. CT/CT abdomen pelvis w IV con IMPRESSION: 1. A definite cause for the patient's abdominal pain and nausea has not been found. 2. There is bilateral nephrolithiasis, right greater than left. Stone burden appears to have decreased bilaterally since the 10/04/2019 study. 3. There is prominence of the intrarenal collecting systems bilaterally but no definite obstructing lesion or stone is seen. 4. Left ovarian cysts appear larger on today's study compared to the 2019 study. A follow-up ultrasound in 6-12 months is recommended. 5. Other incidental findings as described above including moderate hiatal hernia, sigmoid diverticulosis without diverticulitis and hysterectomy changes. Fleischner guidelines were followed.
[2023-01-16 19:55] VITALS: BP 178/88; PULSE 73; RESP 18; O2SAT 96; BMI 25.4
[2023-01-16 20:02] VITALS: BP 188/69; PULSE 73; RESP 16; TEMP 36.6; O2SAT 96
[2023-01-16 20:20] LABS: MANUAL DIFF FLAG NO
[2023-01-16 20:21] LABS: Basophils Percent Auto 0.4 % (0-2); Eosinophils Absolute Auto 0.3 X10*3/uL (0.0-0.4); Eosinophils Percent Auto 3.3 % (0-4); Hematocrit 32.9 % (37.0-47.0); Imm Gran Abs Auto 0.01 X10*3/uL (0.00-0.03); Imm Gran Pct Auto 0.1 % (0.0-0.4); Lymphocytes Absolute Auto 1.2 X10*3/uL (1.2-4.9); Lymphocytes Percent Auto 15.5 % (20-40); Mean Corpuscular HGB Conc 33.4 g/dl (31.0-35.0); Mean Corpuscular Hemoglobin 26.8 pg (27.0-33.0); Mean Platelet Volume 9.6 fL (9.4-12.3); Monocytes Absolute Auto 0.7 X10*3/uL (0.1-1.2); Monocytes Percent Auto 8.6 % (2-11); Neutrophils Absolute Auto 5.5 x10*3/uL (2.0-8.3); Neutrophils Percent Auto 72.1 % (45-73); Platelet Count 211 X10*3/uL (160-400); Red Blood Count 4.11 X10*6/uL (4.20-5.50); Red Cell Distribution Width 15.7 % (11.0-16.0); White Blood Count 7.7 X10*3/uL (4.8-10.8)
[2023-01-16 20:35] LABS: Alanine Aminotransferase 17 U/L (0-31); Albumin Level 3.8 g/dL (3.5-5.0); Alkaline Phosphatase 74 U/L (39-117); Anion Gap 13 (12-20); Aspartate Amino Transferase 21 U/L (5-31); Bilirubin Total 0.4 mg/dL (0.0-1.0); Blood Urea Nitrogen 12 mg/dL (9-16); Calcium 9.1 mg/dL (8.4-10.2); Carbon Dioxide 24 mmol/L (22-29); Chloride 96 mmol/L (96-108); Creatinine Clr Calc Pharmacy 43.6; Estimated Glomerular Filt Rate > 60; Glucose Random 205 mg/dL (60-115); Potassium 4.2 mmol/L (3.3-5.1); Sodium 129 mmol/L (135-145); Total Protein 6.6 g/dL (6.5-8.0)
[2023-01-16 20:45] LABS: Troponin-I High Sensitivity 7.9 ng/L (<3.5-17.0)
[2023-01-16 20:46] LABS: Glucose, Whole Blood 178 mg/dL (60-115)
--- NOTE | 2023-01-16 20:58 | PC.NURSE ---
Pt ambulated to bathroom with 2 assist. Pt stated she was slightly unsteady but overall felt okay. Urine collected and sent. Pt changed into hospital attire and brought back to bed. Pt resting quietly at this time.
[2023-01-16 21:07] LABS: Appearance Urine Cloudy; Color Urine Yellow; Glucose Urine UA Negative (Negative); Leukocyte Esterase Urine Moderate (2+) (Negative); Nitrite Urine Negative (Negative); PH 5.5 (5.0-9.0); Specific Gravity - Urine 1.015 (1.005-1.025); UMIC TRIGGER UACC YES; Urine Blood Negative (Negative); Urine Ketones Negative (Negative); Urine Protein 30 (1+) mg/dL (Neg-Trace)
[2023-01-16 21:12] LABS: Bacteria Urine None Seen (None Seen); RBC Urine 0-2 /HPF (0-2); UACC Culture Trigger YES; WBC Urine >50 /HPF (0-5)
--- NOTE | 2023-01-16 21:48 | ED_ITS ---
HPI - Dizziness General Chief Complaint: Dizziness Stated Complaint: N/V Time Seen by Provider: 01/16/23 20:05 History of Present Illness HPI Narrative: patient is an 87-year-old female presents today with having with a history of dizziness in the past. Presents today with generalized malaise with having the dizzy lightheaded sensation that lasted for an hour. Symptom had since improved. There is no fever no chills. No pain on urination. Had some nausea vomiting earlier. Had a bowel movement earlier today. It was normal. There is no blood. Denies any coughing congestion. Denies any chest pain. Denies any loss of consciousness. Has a history of similar dizziness in the past. The dizziness made worse with change in position. Related Data Home Medications Medication Instructions Recorded Confirmed cyanocobalamin (vitamin B-12) 1,000 mcg PO DAILY 01/07/22 01/05/23 1,000 mcg capsule loratadine 10 mg tablet (Claritin) 10 mg PO DAILY 01/07/22 01/05/23 aspirin 81 mg chewable tablet 1 tab PO DAILY 09/30/22 01/05/23 [id number]. coag-B. tab PO 09/30/22 01/05/23 subtilis-inulin 1 billion cell-1 gram chew tab (Culturelle Probiotic-Multivit) Previous Rx's Medication Instructions Recorded levothyroxine 100 mcg tablet 100 mcg PO DAILY #90 tabs 01/06/22 metformin 500 mg tablet 500 mg PO DAILY #90 tabs 02/03/22 pyridoxine (vitamin B6) 50 mg 50 mg PO DAILY 90 days #90 tabs 03/10/22 tablet azelastine 137 mcg (0.1 %) nasal 1 - 2 spray intranasal BID #30 mL 06/18/22 spray aerosol cholestyramine (with sugar) 4 gram 4 g PO BID #378 grams 06/30/22 oral powder amlodipine 2.5 mg tablet 2.5 mg PO DAILY #90 tabs 12/22/22 atorvastatin 20 mg tablet 20 mg PO DAILY #90 tabs 12/22/22 clindamycin HCl 300 mg capsule 600 mg (2 x 300 mg) PO ONCE #2 caps 01/05/23 sertraline 25 mg tablet 25 mg PO DAILY #90 tabs 01/05/23 cefuroxime axetil 500 mg tablet 500 mg PO BID 7 days #14 tabs 01/17/23 Allergies Allergy/AdvReac Type Severity Reaction Status Date / Time Penicillins [PCN] Allergy Unknown SWELLING Verified 01/05/23 13:51 baclofen AdvReac Unknown vivid Verified 01/05/23 13:51 dreams, agitation flu vaccine Allergy Unknown unknown Uncoded 01/05/23 13:51 Review of Systems 2 Review of Systems: Positive dizziness Yes all other systems are reviewed and are negative [facility] Past Medical History Medical History Aortic stenosis Annual physical exam Cough Back pain IBS (irritable bowel syndrome) CARMEN (dyspnea on exertion) Nephrolithiasis HTN (hypertension) Type 2 diabetes mellitus Hypothyroidism Hyperlipidemia Surgical History H/O colonoscopy Hx of cholecystectomy History of knee replacement procedure of right knee History of total abdominal hysterectomy Family History Family History Father No problems noted. Mother No problems noted. Social History [facility] Alcohol intake: never Patient Tobacco Use Status: Never used Tobacco Smoked in Last 30 Days: No e-Cigarette/Vaping Use: Never Used Second Hand Smoke Exposure: No Use of substances other than those prescribed or required for medical reasons: No Advance Directives: No Advance Directives Information Provided: No Current occupational status: retired Cognitive needs: No Hearing needs: No Vision needs: Yes Physical Exam 2 Vital Signs: Vital Signs: Last Vital Signs Temp 97.9 F 01/16/23 20:02 Pulse 81 01/16/23 23:40 Resp 20 01/16/23 23:40 BP 185/75 H 01/16/23 23:40 Pulse Ox 94 01/16/23 23:40 O2 Del Method Room Air 01/16/23 23:40 BMI result Body Mass Index 25.4 Appearance: Alert. Oriented X3. No acute distress. Eyes: Pupils equal, round and reactive to light. ENT: Pharynx normal. Neck: Normal inspection. Neck supple. No lymph nodes noted. No crepitus CVS: Normal heart rate and rhythm. Pulses normal. Normal S1 and S2 Respiratory: No respiratory distress. Breath sounds normal. No Wheezing. No rales Abdomen: Soft and nontender. No rigidity. No distention. good BS x4 Skin: Skin warm and dry. Normal skin color. Normal skin turgor. Extremities: No lower extremity edema. Neurovascular intact to all extremities. No Lacerations. No Rash Neuro: Oriented X 3. No motor deficit. No sensory deficit. Moving all extermities. No slurred speech Medications Administered Discontinued Medications Generic Name Dose Route Start Last Admin Trade Name Maggie PRN Reason Stop Dose Admin Ceftriaxone Sodium 1 gm/ 50 mls @ 100 mls/hr 01/16/23 21:47 01/16/23 22:51 Sodium Chloride IV 01/16/23 22:16 Infused ONCE ONE Infusion Iohexol 100 ml 01/16/23 22:35 01/16/23 22:35 Iohexol 350 Mg/Ml 100 Ml Infus..Btl IV 01/16/23 22:36 85 ml ONCE ONE Administration Medical Decision Making Medical Decision Making [facility] Narrative: history of low sodium in the past today was 129 which is approximately baseline for patient. Has a history of hypertension history of dizziness patient's urine is also grossly infected. Will get CT scan of the head to rule out the possibility of a bleed. Will also get CT abdomen pelvis patient had nausea vomiting earlier. IV fluid will be given. A dose of antibiotics given. Patient grossly did not appear septic. White count was normal. Heart rate is 73 respiratory rate is 16 there is no evidence for sepsis. No SIRS criteria. patient CT scan of the head was grossly negative for any acute evidence of bleeding. CT scan of the abdomen pelvis showed no acute pathology to explain patient's symptoms. She ambulated well to the bathroom. A dose of Rocephin was given. Patient's labs were checked. Sodium is 129 but patient has a history of low sodium in the past. Usually runs around 129-133. Has a follow-up appointment to see her primary. Will be staying at home with daughter. Has a walker at home. Will ask patient to move slow. Patient wants to go home. Will discharge on Ceftin For UTI. There is no culture results in the system. Admission/Observation Consideration of admission/observation: Escalation of care including admission/observation considered Considering patient's well appearance CT scan negative will DC home Lab Data [facility] Lab Attestation statement: I reviewed the patient's lab results. 01/16/23 20:16 01/16/23 20:16 Labs: Lab Results 01/16/23 01/16/23 01/16/23 Range/Units 20:16 20:43 21:00 WBC 7.7 (4.8-10.8) X10*3/uL RBC 4.11 L (4.20-5.50) X10*6/uL Hgb 11.0 L (12.0-16.0) g/dl Hct 32.9 L (37.0-47.0) % MCV 80.0 (80.0-98.0) fL MCH 26.8 L (27.0-33.0) pg MCHC 33.4 (31.0-35.0) g/dl RDW 15.7 (11.0-16.0) % Plt Count 211 D (160-400) X10*3/uL MPV 9.6 (9.4-12.3) fL Immature Gran % (Auto) 0.1 (0.0-0.4) % Neut % (Auto) 72.1 (45-73) % Lymph % (Auto) 15.5 L (20-40) % [place] % (Auto) 8.6 (2-11) % Eos % (Auto) 3.3 (0-4) % Baso % (Auto) 0.4 (0-2) % Lymph # (Auto) 1.2 (1.2-4.9) X10*3/uL Norton # (Auto) 0.7 (0.1-1.2) X10*3/uL Eos # (Auto) 0.3 (0.0-0.4) X10*3/uL Baso # (Auto) 0.0 (0.0-0.2) X10*3/uL Abs Immat Gran (auto) 0.01 (0.00-0.03) X10*3/uL Absolute Neuts (auto) 5.5 (2.0-8.3) x10*3/uL Absolute Nucleated RBC 0.000 (0.0-0.012) X10*3/uL Nucleated RBC % (auto) 0.0 (0.0-0.2) /100WBC Sodium 129 L (135-145) mmol/L Potassium 4.2 (3.3-5.1) mmol/L Chloride 96 (96-108) mmol/L Carbon Dioxide 24 (22-29) mmol/L Anion Gap 13 (12-20) BUN 12 (9-16) mg/dL Creatinine 0.84 (0.5-1.4) mg/dL Estim Creat Clear Calc 43.6 Estimated GFR > 60 POC Glucose 178 H (60-115) mg/dL Random Glucose 205 H (60-115) mg/dL Calcium 9.1 (8.4-10.2) mg/dL Total Bilirubin 0.4 (0.0-1.0) mg/dL AST 21 (5-31) U/L ALT 17 (0-31) U/L Alkaline Phosphatase 74 (39-117) U/L Troponin I High Sens 7.9 (<3.5-17.0) ng/L Total Protein 6.6 (6.5-8.0) g/dL Albumin 3.8 (3.5-5.0) g/dL Urine Color Yellow Urine Appearance Cloudy Urine pH 5.5 (5.0-9.0) Ur Specific [place] 1.015 (1.005-1.025) Urine Protein 30 (1+) H (Neg-Trace) mg/dL Urine Glucose (UA) Negative (Negative) mg/dL Urine Ketones Negative (Negative) mg/dL Urine Blood Negative (Negative) Urine Nitrite Negative (Negative) Ur Leukocyte Esterase Moderate (2+) H (Negative) Urine RBC 0-2 (0-2) /HPF Urine WBC >50 H (0-5) /HPF Ur Squamous Epith Cells 3-5 (0-2) /HPF Urine Bacteria None Seen (None Seen) Hyaline Casts 3-5 (0-2) /LPF Independent Interpretation I performed an independent interpretation of an: EKG ( sinus pattern heart rate is 80 MO QRS QTC within normal limits. No significant change when compared to previous EKG) and CT Scan ( CT scan of the head was grossly negative for any acute evidence of bleeding. No mass noted.) Radiology Impression Discussion of test interpretation with radiology: I have reviewed the radiologist's reading. Independent Historian Patient's daughter External Record Review External record reviewed: Office record outpatient office record review Prescription Management I considered prescription management with: Antibiotic Chronic Conditions Patient?s care impacted by: Hypertension Discharge Plan Discharge Clinical Impression: Acute hyponatremia, Acute UTI, Dizziness Patient Disposition: Home, Self-Care Instructions: Dizziness (ED), Urinary Tract Infection in Older Adults (ED) Additional Instructions: your sodium was slightly low at 129. On the CT scan of your abdomen your left ovary was slightly enlarged. Radiology recommended an ultrasound in 6 months. Please follow-up Prescriptions: New cefuroxime axetil 500 mg tablet 500 mg PO BID 7 Days Qty: 14 0RF No Action metformin 500 mg tablet 500 mg PO DAILY Qty: 90 3RF azelastine 137 mcg (0.1 %) aerosol,spray 1 - 2 spray intranasal BID Qty: 30 6RF cholestyramine (with sugar) 4 gram powder 4 g PO BID Qty: 378 5RF amlodipine 2.5 mg tablet 2.5 mg PO DAILY Qty: 90 3RF atorvastatin 20 mg tablet 20 mg PO DAILY Qty: 90 3RF levothyroxine 100 mcg tablet 100 mcg PO DAILY Qty: 90 3RF aspirin 81 mg tablet,chewable 1 tab PO DAILY Culturelle Probiotic-Multivit 1 billion cell- 1 gram tablet,chewable PO clindamycin HCl 300 mg capsule 600 mg PO ONCE Qty: 2 2RF sertraline 25 mg tablet 25 mg PO DAILY Qty: 90 0RF loratadine [Claritin] 10 mg tablet 10 mg PO DAILY cyanocobalamin (vitamin B-12) 1,000 mcg capsule 1,000 mcg PO DAILY pyridoxine (vitamin B6) 50 mg tablet 50 mg PO DAILY 90 Days Qty: 90 3RF Referrals: Physician,Unknown J [Primary Care Provider] - 01/19/23
[2023-01-16] MEDS: cefTRIAXone sodium 1 GM in 0.9 % Sodium Chloride 50 ML IV (21:59)
[2023-01-16] MEDS: iohexoL 350 MG/ML 100 ML INFUS..BTL IV (22:35)
[2023-01-16 23:40] VITALS: BP 185/75; PULSE 81; RESP 20; O2SAT 94
== END 2023-01-17 01:09 | disposition home or self-care (01) ==
PROVIDERS: Emergency Provider Emergency Medicine Emergency Medical Services
DX: E87.1 Hypo-osmolality and hyponatremia (principal); N39.0 Urinary tract infection, site not specified; R42 Dizziness and giddiness; R11.2 Nausea with vomiting, unspecified; I10 Essential (primary) hypertension; E11.9 Type 2 diabetes mellitus without complications; E03.9 Hypothyroidism, unspecified; E78.5 Hyperlipidemia, unspecified
CPT/HCPCS: 36415; 70450; 74177; 80053; 81001; 82947; 84484; 85025; 87086; 87088; 87186; 93005; 96365; 99284; 99285; J0696; Q9967

== ENCOUNTER 2023-01-18 09:39 | Observation (INO) | payer MEDICARE, OTHER, SELFPAY ==
[2023-01-18] VITALS (14 sets, daily range): BP systolic 110–181; BP diastolic 55–80; PULSE 68–104; RESP 12–18; TEMP 36.8–36.9; O2SAT 95–97; BMI 29.8
--- NOTE | ~2023-01-18 | XR_ITS ---
EXAMINATION: XR ABDOMEN COMPLETE CLINICAL INDICATION: Constipation, nausea and vomiting. COMPARISON: CT abdomen and pelvis 01/16/2023. TECHNIQUE: 2 views of the abdomen. FINDINGS: The bowel gas pattern is nonobstructive. There is a moderate amount of stool in the colon and rectum consistent with the given history of constipation. Decubitus imaging shows no evidence of pneumoperitoneum or differential air-fluid levels. The lung bases are clear. Cholecystectomy clips. XR/XR abdomen min 2V IMPRESSION: No evidence of bowel obstruction.
--- NOTE | 2023-01-18 10:21 | PC.NURSE ---
a&ox3, vss, nsr on the cardiac cath lab radiology technologist. pt biba d/t increased weakness, dizziness, and nausea/vomiting. pt came to the ED on wednesday d/t same sx and she was dx with UTI. pt has been compliant w/ abx administration and states that she took morning dose this am. pt has had poor PO intake since wednesday and has been having difficulty keeping anything down. emesis bag placed bedside in case pt needs to vomit. abdomen tender upon palpation. normoactive bs noted upon auscultation. pt's daughter bedside for support. resting comfortably in no apparent distress. respirations even and unlabored. provider bedside assessing pt. call mclaughlin placed within reach.
[2023-01-18] MEDS: 0.9 % Sodium Chloride 1,000 ML 999 ML IV (10:36)
--- NOTE | 2023-01-18 10:36 | ED_ITS ---
HPI - General Adult General Chief complaint: Weakness Stated complaint: UTI NAUSEA DIZZINESS Time Seen by Provider: 01/18/23 09:47 Source: patient and family (daughter) Mode of arrival: EMS Limitations: no limitations History of Present Illness HPI narrative: 87 yo female with PMHx significant for aortic stenosis, T2DM, IBS-C, HTN, hypothyroidism, HDL, presents to the ED today with a complaint of a dizziness and weakness. Patient was evaluated in our ED 2 days ago for similar symptoms, diagnosed with UTI and d/c on cefuroxime. Daughter at bedside states patient has had continued vertigo-like symptoms of dizziness, worse with sudden head movements, along with N/V. No episodes of vomiting today. Additionally she complains of chronic constipation, last bowel movement 2 days ago, dark in color. States she currently feels like she has to pass a BM but cannot. Denies fever, chills, night sweats, headache, abdominal pain, BRBPR, flank pain, dysuria, hematuria. Related Data Home Medications Medication Instructions Recorded Confirmed loratadine 10 mg tablet (Claritin) 10 mg PO DAILY 01/07/22 01/18/23 aspirin 81 mg chewable tablet 1 tab PO DAILY 09/30/22 01/18/23 Previous Rx's Medication Instructions Recorded levothyroxine 100 mcg tablet 100 mcg PO DAILY #90 tabs 01/06/22 metformin 500 mg tablet 500 mg PO DAILY #90 tabs 02/03/22 cholestyramine (with sugar) 4 gram 4 g PO BID #378 grams 06/30/22 oral powder amlodipine 2.5 mg tablet 2.5 mg PO DAILY #90 tabs 12/22/22 atorvastatin 20 mg tablet 20 mg PO DAILY #90 tabs 12/22/22 sertraline 25 mg tablet 25 mg PO DAILY #90 tabs 01/05/23 cefuroxime axetil 500 mg tablet 500 mg PO BID 7 days #14 tabs 01/17/23 polyethylene glycol 3350 17 gram 17 g PO Q10M 8 doses #30 ea 01/18/23 oral powder packet (Miralax) Allergies Allergy/AdvReac Type Severity Reaction Status Date / Time Penicillins [PCN] Allergy Unknown SWELLING Verified 01/18/23 09:54 baclofen AdvReac Unknown vivid Verified 01/18/23 09:54 dreams, agitation flu vaccine Allergy Unknown unknown Uncoded 01/18/23 09:54 Review of Systems 2 Review of Systems: Constitutional: No fever, No chills, No fatigue, No malaise, + generalized weakness ENT/Mouth: No ear pain, No hearing loss, No nasal congestion Eyes: No eye pain, No swelling, No redness, No vision changes Cardio: No chest pain, No palpitations, No dyspnea on exertion, No orthopnea, No edema Respiratory: No SOB, No cough, No sputum, No wheezing, No dyspnea, No hemoptysis GI: + nausea, + vomiting, No hematemesis, No abdominal pain, No diarrhea, + constipation, No hematochezia, No melena : No irregular bleeding, No dysuria, No frequency, No urgency, No hesitancy, No hematuria, No flank pain MSK: No back pain, No neck pain, No joint pain, No myalgias Skin: No skin lesions, No rashes Neuro: No weakness, No numbness, No paresthesias, No LOC, + dizziness, No headache Psych: No anxiety/panic, No depression, No SI/HI, No AH/VH All other systems reviewed and are negative. [facility] Past Medical History Attestation statement: The following information was validated with the patient. Source: old records reviewed and nursing notes reviewed Medical History Aortic stenosis Annual physical exam Cough Back pain IBS (irritable bowel syndrome) CARMEN (dyspnea on exertion) Nephrolithiasis HTN (hypertension) Type 2 diabetes mellitus Hypothyroidism Hyperlipidemia Surgical History H/O colonoscopy Hx of cholecystectomy History of knee replacement procedure of right knee History of total abdominal hysterectomy Family History Family History Father No problems noted. Mother No problems noted. Social History Social History Housing: Condominium Alcohol intake: never Patient Tobacco Use Status: Never used Tobacco Smoked in Last 30 Days: No e-Cigarette/Vaping Use: Never Used Second Hand Smoke Exposure: No Use of substances other than those prescribed or required for medical reasons: No Advance Directives: No Advance Directives Information Provided: Yes Current occupational status: retired Cognitive needs: No Hearing needs: No Vision needs: Yes Physical Exam ED Vital Signs: Vital Signs - 24 hr 01/18/23 11:01 01/18/23 12:00 01/18/23 14:02 Temperature 98.3 F 98.4 F Pulse Rate 70 71 74 Respiratory Rate 16 16 Blood Pressure 175/69 H 168/60 H 181/69 H Pulse Oximetry 95 95 Oxygen Delivery Method Room Air Room Air 01/18/23 14:05 01/18/23 14:06 01/18/23 14:08 Temperature 98.2 F Pulse Rate 72 90 104 H Respiratory Rate 15 Blood Pressure 168/73 H 110/55 L 181/69 H Pulse Oximetry 95 Oxygen Delivery Method Room Air 01/18/23 16:00 01/18/23 17:57 01/18/23 17:59 Temperature 98.4 F Pulse Rate 75 76 93 Respiratory Rate 16 Blood Pressure 156/60 H 170/61 H 167/76 H Pulse Oximetry 97 Oxygen Delivery Method Room Air 01/18/23 18:01 01/18/23 19:17 01/18/23 19:32 Temperature 98.2 F Pulse Rate 102 H 92 85 Respiratory Rate 16 12 Blood Pressure 147/68 H 172/80 H 161/62 H Pulse Oximetry 97 95 Oxygen Delivery Method Room Air BMI result Body Mass Index 29.8 Vital signs stable General: Nontoxic appearing. NAD. Skin: Warm and dry. No rashes or lesions. Head: Normocephalic, atraumatic. EENT: PERRLA. EOM intact. Pharynx normal. Neck: Supple without LAD. Normal ROM. Trachea midline. Cardiac: Chest wall symmetric. RRR. S1 and S1 appreciated. No MRG. No JVD. Lungs: CTA bilaterally. No rales, rhonchi, or wheezes. Normal respiratory effort without accessory muscle use. Abdomen: No visible lesions or scars. Soft, NT/ND. No rebound tenderness or guarding. + BS x4. No masses, hepatomegaly, or splenomegaly. Bladder not palpable. Spine: No midline spinous tenderness. No deformity or step off. No CVAT. Ext: UE and LE atraumatic. Full ROM throughout. Capillary refill <2 seconds in all extremities. Pulses 2+ equal b/l. No edema, cyanosis, or clubbing. Neuro: AOx3. Normal speech. Horizontal nystagmus. CN 3-12 grossly intact. Strength 4/5 throughout. Sensation intact to light touch. NV intact distally. Normal finger to nose, heel to prater. Ambulating with steady gait. Psych: Appropriate mood and affect. Responds appropriately to questions. Rectal exam performed with [facility] Tech present in room to tank setter. Normal rectal sphincter tone. No external masses or lesions. Palpable hard stool appreciated in rectal vault. Guiac negative. Course Course Course Narrative: 1217-- CBC without leukocytosis, chronically anemic when compared to priors. Serum sodium 130. Chemistry without acute electrolyte abnormality requiring intervention. Lipase WNL. Urine without infection. Serology negative for COVID and influenza. Awaiting abdominal x-ray results. 1311-- Palpable hard stool in rectal vault on QASIM > will attempt manual disimpaction. Hemoccult sent. 1358-- xray abdomen showing moderate amount of stool in colon/ rectum > will perform digital stool disimpaction. 1444-- orthostatics positive > patient receiving IVF. Will repeat once fluids complete. Hemoccult negative. > Manual stool disimpaction performed with Amie JANG in room. Small amount of hard stool removed from the rectal vault. Patient states she now has the urge to pass a bowel movement >> enema ordered and will re-evaluate. 1536-- Signed out to my colleague Amie JANG, pending enema, IVF completion, and repeat orthos. 1630-- ED care transferred to [facility] pending enema, IVF completion & repeat orthos Medications Administered Generic Name Dose Route Start Last Admin Trade Name Maggie PRN Reason Stop Dose Admin Amlodipine Besylate 2.5 mg 01/19/23 09:00 01/19/23 10:03 Amlodipine Besylate 2.5 Mg Tablet PO 2.5 mg DAILY THAIS Administration Protocol Aspirin 81 mg 01/19/23 09:00 01/19/23 10:05 Aspirin 81 Mg Tab.Chew PO 81 mg DAILY THAIS Administration Clopidogrel Bisulfate 75 mg 01/19/23 09:00 01/19/23 10:05 Clopidogrel Bisulfate 75 Mg Tablet PO Not Given DAILY THAIS Enoxaparin Sodium 40 mg 01/18/23 21:00 01/18/23 21:31 Enoxaparin Sodium 40 Mg/0.4 Ml Syringe SUBCUT 40 mg Q24H THAIS Administration Sodium Chloride 1,000 mls @ 80 mls/hr 01/18/23 21:15 01/18/23 21:31 Ns IVCONT 80 mls/hr .[id number] THAIS Administration Ceftriaxone Sodium 1 gm/ 50 mls @ 100 mls/hr 01/18/23 22:00 01/18/23 23:27 Sodium Chloride IV Infused Q24H THAIS Infusion Insulin Human Lispro 0 unit 01/19/23 07:30 01/19/23 07:50 Insulin Lispro 100 Unit/Ml 3 Ml Vial SUBCUT Not Given QIDACHS [facility] Protocol Levothyroxine Sodium 100 mcg 01/19/23 06:00 01/19/23 10:05 Levothyroxine Sodium 100 Mcg Tablet PO 100 mcg DAILY@0600 THAIS Administration Loratadine 10 mg 01/19/23 09:00 01/19/23 10:06 Loratadine 10 Mg Tablet PO 10 mg DAILY THAIS Administration Polyethylene Glycol 17 gm 01/19/23 09:00 01/19/23 10:06 Polyethylene Glycol 3350 17 Gm Powd.Pack PO 17 gm DAILY THAIS Administration Senna 17.2 mg 01/18/23 21:15 01/18/23 21:31 Sennosides 8.6 Mg Tablet PO 17.2 mg BEDTIME THAIS Administration Sertraline HCl 25 mg 01/19/23 09:00 01/19/23 10:05 Sertraline Hcl 25 Mg Tablet PO Not Given DAILY THAIS Sodium Chloride 3 ml 01/19/23 00:00 01/19/23 07:50 0.9 % Sodium Chloride Flush 3 Ml Syringe IVFLUSH Not Given QSHIFT THAIS Discontinued Medications Generic Name Dose Route Start Last Admin Trade Name Freq PRN Reason Stop Dose Admin Sodium Chloride 1,000 mls @ 999 mls/hr 01/18/23 10:30 01/18/23 14:30 Ns IV 01/18/23 11:30 Infused .Q1H1M THAIS Infusion Meclizine HCl 25 mg 01/18/23 10:35 01/18/23 10:38 Meclizine Hcl 25 Mg Tablet PO 01/18/23 10:36 25 mg ONCE ONE Administration Meclizine HCl 25 mg 01/18/23 20:59 01/18/23 21:31 Meclizine Hcl 25 Mg Tablet PO 01/18/23 21:00 25 mg ONCE ONE Administration Procedures Rectal Disimpaction Time out performed rectal disimpaction: Yes Indication: fecal impaction Procedural Sedation: No Sedation/Analgesia: none Technique: manual disimpaction with gloved finger Result: significant stool output Patient Tolerated Procedure: well and no complications Complications: none Stool Hemoccult Procedural Steps Taken: stool placed in appropriate test area, developer placed on stool and control areas and controls appropriately positive and negative Hemoccult result: negative Medical Decision Making Medical Decision Making [facility] Narrative: 87 yo female with PMHx significant for aortic stenosis, T2DM, IBS-C, hypertension, hypothyroidism, hyperlipidemia, low sodium presents to the ED today with a complaint of a dizziness and weakness. VSS. Patient nontoxic appearing, in NAD. RRR. Abdomen soft, NT/ND with normoactive BS throughout. Exam nonfocal. Cerebellum intact. Clinical concern for vertigo vs orthostatic hypotension vs dehydration > will obtain orthostatic vital signs, give meclizine, and start IVF. Unlikely ACS or arrhythmia > will get EKG. Low suspicion for CVA/TIA, ICA, cerebellar stroke as exam is nonfocal. Clinical concern for constipation vs stool impaction vs obstruction > will obtain abdominal x-ray. Concern for viral syndrome > will obtain serology. Differential Diagnosis Differential Diagnoses: The differential diagnosis associated with the presentation includes Clinical concern for vertigo vs orthostatic hypotension vs dehydration > will obtain orthostatic vital signs, give meclizine, and start IVF. Unlikely ACS or arrhythmia > will get EKG. Low suspicion for CVA/TIA, ICA, cerebellar stroke as exam is nonfocal. Clinical concern for constipation vs stool impaction vs obstruction > will obtain abdominal x-ray. Concern for viral syndrome > will obtain serology. Admission/Observation Consideration of admission/observation: Escalation of care including admission/observation considered Patient admitted to medicine for chronic constipation. Consult Healthcare Provider Management of the patient was discussed with: Hospitalist (Barbara Ron) Lab Data [facility] Lab Attestation statement: I reviewed the patient's lab results. See above course narrative 01/19/23 05:07 01/19/23 05:07 Labs: Lab Results 01/18/23 01/18/23 01/18/23 Range/Units 10:33 10:42 11:02 WBC 6.2 (4.8-10.8) X10*3/uL RBC 4.21 (4.20-5.50) X10*6/uL Hgb 11.3 L (12.0-16.0) g/dl Hct 33.5 L (37.0-47.0) % MCV 79.6 L (80.0-98.0) fL MCH 26.8 L (27.0-33.0) pg MCHC 33.7 (31.0-35.0) g/dl RDW 16.0 (11.0-16.0) % Plt Count 248 (160-400) X10*3/uL MPV 10.5 (9.4-12.3) fL Immature Gran % (Auto) 0.3 (0.0-0.4) % Neut % (Auto) 68.2 (45-73) % Lymph % (Auto) 18.8 L (20-40) % [place] % (Auto) 9.4 (2-11) % Eos % (Auto) 2.8 (0-4) % Baso % (Auto) 0.5 (0-2) % Lymph # (Auto) 1.2 (1.2-4.9) X10*3/uL [place] # (Auto) 0.6 (0.1-1.2) X10*3/uL Eos # (Auto) 0.2 (0.0-0.4) X10*3/uL Baso # (Auto) 0.0 (0.0-0.2) X10*3/uL Abs Immat Gran (auto) 0.02 (0.00-0.03) X10*3/uL Absolute Neuts (auto) 4.2 (2.0-8.3) x10*3/uL Absolute Nucleated RBC 0.000 (0.0-0.012) X10*3/uL Nucleated RBC % (auto) 0.0 (0.0-0.2) /100WBC Sodium 130 L (135-145) mmol/L Potassium 4.1 (3.3-5.1) mmol/L Chloride 97 (96-108) mmol/L Carbon Dioxide 26 (22-29) mmol/L Anion Gap 11 L (12-20) BUN 11 (9-16) mg/dL Creatinine 0.94 (0.5-1.4) mg/dL Estim Creat Clear Calc 38.9 Estimated GFR 56 Random Glucose 119 H (60-115) mg/dL Calcium 9.5 (8.4-10.2) mg/dL Magnesium 1.8 (1.6-2.6) mg/dL Total Bilirubin 0.4 (0.0-1.0) mg/dL AST 24 (5-31) U/L ALT 19 (0-31) U/L Alkaline Phosphatase 78 (39-117) U/L Total Protein 6.8 (6.5-8.0) g/dL Albumin 3.9 (3.5-5.0) g/dL Lipase 16 (8-78) U/L Urine Color Yellow Urine Appearance Clear Urine pH 5.5 (5.0-9.0) Ur Specific King 1.010 (1.005-1.025) Urine Protein Negative (Neg-Trace) mg/dL Urine Glucose (UA) Negative (Negative) mg/dL Urine Ketones Negative (Negative) mg/dL Urine Blood Negative (Negative) Urine Nitrite Negative (Negative) Ur Leukocyte Esterase Small (1+) H (Negative) Urine RBC 0-2 (0-2) /HPF Urine WBC 0-5 (0-5) /HPF Ur Squamous Epith Cells 0-2 (0-2) /HPF Urine Bacteria None Seen (None Seen) Hyaline Casts 0-2 (0-2) /LPF Stool Occult Blood (NEGATIVE) COVID-19 (FAREED) Negative (Negative) COVID-19 Clin Com See Note Influenza Type A (BENJAMIN) Negative (Negative) Influenza Type B (BENJAMIN) Negative (Negative) Influenza A & B Note See Note 01/18/23 Range/Units 14:12 WBC (4.8-10.8) X10*3/uL RBC (4.20-5.50) X10*6/uL Hgb (12.0-16.0) g/dl Hct (37.0-47.0) % MCV (80.0-98.0) fL MCH (27.0-33.0) pg MCHC (31.0-35.0) g/dl RDW (11.0-16.0) % Plt Count (160-400) X10*3/uL MPV (9.4-12.3) fL Immature Gran % (Auto) (0.0-0.4) % Neut % (Auto) (45-73) % Lymph % (Auto) (20-40) % [place] % (Auto) (2-11) % Eos % (Auto) (0-4) % Baso % (Auto) (0-2) % Lymph # (Auto) (1.2-4.9) X10*3/uL [place] # (Auto) (0.1-1.2) X10*3/uL Eos # (Auto) (0.0-0.4) X10*3/uL Baso # (Auto) (0.0-0.2) X10*3/uL Abs Immat Gran (auto) (0.00-0.03) X10*3/uL Absolute Neuts (auto) (2.0-8.3) x10*3/uL Absolute Nucleated RBC (0.0-0.012) X10*3/uL Nucleated RBC % (auto) (0.0-0.2) /100WBC Sodium (135-145) mmol/L Potassium (3.3-5.1) mmol/L Chloride (96-108) mmol/L Carbon Dioxide (22-29) mmol/L Anion Gap (12-20) BUN (9-16) mg/dL Creatinine (0.5-1.4) mg/dL Estim Creat Clear Calc Estimated GFR Random Glucose (60-115) mg/dL Calcium (8.4-10.2) mg/dL Magnesium (1.6-2.6) mg/dL Total Bilirubin (0.0-1.0) mg/dL AST (5-31) U/L ALT (0-31) U/L Alkaline Phosphatase (39-117) U/L Total Protein (6.5-8.0) g/dL Albumin (3.5-5.0) g/dL Lipase (8-78) U/L Urine Color Urine Appearance Urine pH (5.0-9.0) Ur Specific King (1.005-1.025) Urine Protein (Neg-Trace) mg/dL Urine Glucose (UA) (Negative) mg/dL Urine Ketones (Negative) mg/dL Urine Blood (Negative) Urine Nitrite (Negative) Ur Leukocyte Esterase (Negative) Urine RBC (0-2) /HPF Urine WBC (0-5) /HPF Ur Squamous Epith Cells (0-2) /HPF Urine Bacteria (None Seen) Hyaline Casts (0-2) /LPF Stool Occult Blood NEGATIVE (NEGATIVE) COVID-19 (FAREED) (Negative) COVID-19 Clin Com Influenza Type A (BENJAMIN) (Negative) Influenza Type B (BENJAMIN) (Negative) Influenza A & B Note Independent Interpretation I performed an independent interpretation of an: EKG and Plain X-Ray Interpretation: EKG showing sinus rhythm with 1st degree AV block at a rate of 74 bpm, LAD, LVF, no acute ischemic changes. Xray abdomen showing moderate stool burden in rectum, agree with radiologist's interpretation. Radiology Impression Discussion of test interpretation with radiology: I have reviewed the radiologist's reading. Radiologist Impression: XR abdomen min 2V IMPRESSION: No evidence of bowel obstruction. Independent Historian Clinical information obtained from an independent historian. History obtained from or confirmed by: Other (Daughter) External Record Review External record reviewed: Inpatient record Tests considered The following testing was considered but not selected: I considered obtaining ct head however patient's exam is nonfocal and received imaging 2 days prior which returned unremarkable without a change in symptoms > not indicated at this time. Prescription Management I considered prescription management with: Pain Medication, Antibiotic and Other (Antiemetic) Chronic Conditions Patient?s care impacted by: Other (IBS-C) Critical Care Time Critical Care Time Critical Care Time: Yes Total Critical Care Time: 31 Attestation: Critical care time in the amount of 31 minutes has been provided to the patient in terms of direct patient care, frequent reevaluation, consultation with hospitalist, review and interpretation of medical data and results, and management of potentially life-threatening conditions. This is all outside of any medical procedures. Discharge Plan Discharge Clinical Impression: Orthostatic hypotension, Constipation, Fecal impaction, Acute UTI (urinary tract infection) Patient Disposition: Admitted As Inpatient
[2023-01-18] MEDS: Meclizine HCl 25 MG TABLET PO ×2 (10:38→21:31)
--- NOTE | 2023-01-18 10:38 | PC.NURSE ---
20gIV placed in the right AC w/o difficulty. labs drawn and sent to lab. IVF and medications administered per provider order.
[2023-01-18 10:40] LABS: MANUAL DIFF FLAG NO
[2023-01-18 10:56] LABS: Alanine Aminotransferase 19 U/L (0-31); Albumin Level 3.9 g/dL (3.5-5.0); Alkaline Phosphatase 78 U/L (39-117); Anion Gap 11 (12-20); Aspartate Amino Transferase 24 U/L (5-31); Bilirubin Total 0.4 mg/dL (0.0-1.0); Blood Urea Nitrogen 11 mg/dL (9-16); Calcium 9.5 mg/dL (8.4-10.2); Carbon Dioxide 26 mmol/L (22-29); Chloride 97 mmol/L (96-108); Creatinine Clr Calc Pharmacy 38.9; Estimated Glomerular Filt Rate 56; Glucose Random 119 mg/dL (60-115); Lipase 16 U/L (8-78); Magnesium 1.8 mg/dL (1.6-2.6); Potassium 4.1 mmol/L (3.3-5.1); Sodium 130 mmol/L (135-145); Total Protein 6.8 g/dL (6.5-8.0)
[2023-01-18 11:04] LABS: COVID-19 Test Negative (Negative); IDNOW Serial# 9DB6401D; IDNOW Serial# BCCEAD1C; Influenza A Negative (Negative); Influenza B2 Negative (Negative)
[2023-01-18 11:11] LABS: Appearance Urine Clear; Color Urine Yellow; Glucose Urine UA Negative (Negative); Leukocyte Esterase Urine Small (1+) (Negative); Nitrite Urine Negative (Negative); PH 5.5 (5.0-9.0); UMIC TRIGGER UACC YES; Urine Blood Negative (Negative); Urine Ketones Negative (Negative); Urine Protein Negative (Neg-Trace)
[2023-01-18 11:13] LABS: Basophils Percent Auto 0.5 % (0-2); Eosinophils Absolute Auto 0.2 X10*3/uL (0.0-0.4); Eosinophils Percent Auto 2.8 % (0-4); Hematocrit 33.5 % (37.0-47.0); Hemoglobin 11.3 g/dl (12.0-16.0); Imm Gran Abs Auto 0.02 X10*3/uL (0.00-0.03); Imm Gran Pct Auto 0.3 % (0.0-0.4); Lymphocytes Absolute Auto 1.2 X10*3/uL (1.2-4.9); Lymphocytes Percent Auto 18.8 % (20-40); Mean Corpuscular HGB Conc 33.7 g/dl (31.0-35.0); Mean Corpuscular Hemoglobin 26.8 pg (27.0-33.0); Mean Corpuscular Volume 79.6 fL (80.0-98.0); Mean Platelet Volume 10.5 fL (9.4-12.3); Monocytes Absolute Auto 0.6 X10*3/uL (0.1-1.2); Monocytes Percent Auto 9.4 % (2-11); Neutrophils Absolute Auto 4.2 x10*3/uL (2.0-8.3); Neutrophils Percent Auto 68.2 % (45-73); Platelet Count 248 X10*3/uL (160-400); Red Blood Count 4.21 X10*6/uL (4.20-5.50); White Blood Count 6.2 X10*3/uL (4.8-10.8)
[2023-01-18 11:27] LABS: Bacteria Urine None Seen (None Seen); Hyaline Casts Urine 0-2 /LPF (0-2); RBC Urine 0-2 /HPF (0-2); Squamous Epithelial Cell Urine 0-2 /HPF (0-2); UACC Culture Trigger YES; WBC Urine 0-5 /HPF (0-5)
--- NOTE | 2023-01-18 12:14 | ECG_ITS ---
Test Reason : oz Blood Pressure : / mmHG Vent. Rate : 074 BPM Atrial Rate : 074 BPM P-R Int : 216 ms QRS Dur : 120 ms QT Int : 436 ms P-R-T Axes : 032 -43 063 degrees QTc Int : 483 ms Sinus rhythm with 1st degree A-V block Left axis deviation Left ventricular hypertrophy with QRS widening ( R in aVL , Bennie product ) Abnormal ECG When compared with ECG of 16-JAN-2023 20:08, No significant change was found Referred By: Mattie Castañeda Electronically Signed By:MAGO TAYLOR
--- NOTE | 2023-01-18 12:20 | PC.NURSE ---
vss and up to date. nsr on the quality assurance monitor final. IVF still hung and running. pt's daughter bedside for support. pt remains in no apparent distress. respirations even and unlabored. call mclaughlin placed within reach.
[2023-01-18 14:17] LABS: OBS Int Ctl Valid YES; OBS1 NEGATIVE (NEGATIVE)
--- NOTE | 2023-01-18 15:41 | PC.NURSE ---
vss and up to date. nsr on the pvc monitor. pt still reports no pain at this time. IVF still hung and running. IVF placed on pump d/t not being administered adequately. pt resting in no apparent distress at this time. respirations even and unlabored. call mclaughlin placed within reach.
--- NOTE | 2023-01-18 16:16 | MHC.EDTECH ---
THIS PCT ASSUMED CARE OF PT AT 1500 ,VITALS SIGN TAKEN ,PT BELONGINGS LIST DONE ,PT WAS BOOSTED UP AND REPOSITION IN BED,PT IS COMFORTABLE AT THIS TIME .
--- NOTE | 2023-01-18 16:52 | MHC.EDTECH ---
PATIENT WAS ASSISTED UNTO BEDSIDE COM,MODE ,PT VOID LG AMOUNT OF URINE AND HAD SMALL BOWEL MOVEMENT ,PT BACK IN BED .
--- NOTE | 2023-01-18 17:50 | PC.NURSE ---
pt inquiring about dinner pt was notified it hasnt arrived quite yet
--- NOTE | 2023-01-18 18:25 | PC.NURSE ---
orthostats performed and documented. enema administered per provider order. pt tolerated administration well. pt resting on right side with bed chen in place. pt instructed to hold fluid in until not able to tolerate anymore. call mclaughlin placed within reach.
--- NOTE | 2023-01-18 19:18 | PC.NURSE ---
Assumed care of pt. Assisted pt from commode to bed, pt demonstrating steady gait and ability to balance. Minimal stool present in commode. CS as charted. Pending dispo from provider.
--- NOTE | 2023-01-18 19:35 | MHC.EDTECH ---
PT WAS ASSISTED UNTO BEDSIDE COMMODEW VOID LG AMOUNT OF URINE ,PT ATE 100 % OF DINNER ,WARM BLANKET GIVEN ,PT RESTING COMFORTABLE IN BED .
--- NOTE | 2023-01-18 20:54 | PC.NURSE ---
Pt stating she is having recurring dizziness. States that previously administered medication (Meclizine) worked well for dizziness she was experiencing. Will notify provider.
--- NOTE | 2023-01-18 21:03 | PM.IMHP ---
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 The patient was seen in the ED 2 days prior with similar symptoms and diagnosed with UTI, discharged on cefuroxime. The patient continues to experience vertigo like dizziness worse with head movements along with nausea and vomiting. According to the patient's daughter, she has been able to keep antibiotics down but has had decreased appetite. She is also complaining of constipation and was able to move her bowels in the ED following enema. Denies any fevers, chills, abdominal pain, flank pain, dysuria, hematuria, increased urinary frequency, headache, hearing loss, tinnitus, cough, shortness of breath, or chest pain. Urine culture results from 2 days ago growing Gram-positive cocci, final culture results still pending. On arrival, vital signs stable, patient afebrile. There is no leukocytosis. Renal function normal, electrolyte levels normal except for mild hyponatremia of 130 which is chronic. Urinalysis today unremarkable. Stool occult blood negative. Negative for COVID-19. KUB negative for any bowel obstruction which shows moderate amount of stool in the colon and rectum but no other acute findings. Patient was noted to be orthostatic on arrival and received 1 L IVF. However orthostatic vital signs did persist despite IV fluids. She was also given meclizine 25 mg. Review of Systems Review of Systems: General: No fevers, malaise, unintentional weight loss HEENT: No blurred vision, diplopia. No sore throat, nasal congestion, rhinorrhea, sinus pain, ear pain Cardiovascular: No chest pain, palpitations, or leg edema Respiratory: No shortness of breath, wheezing, cough GI: +nausea, +vomiting. No abdominal pain, diarrhea, constipation, melena, hematochezia : No dysuria, hematuria, increased urinary frequency, decreased urinary output MSK: No myalgia, back pain Neuro: No headaches, weakness, paresthesias. +vertigo Skin: No rashes or lesions PMF Medical History Aortic stenosis Annual physical exam Cough Back pain IBS (irritable bowel syndrome) CARMEN (dyspnea on exertion) Nephrolithiasis HTN (hypertension) Type 2 diabetes mellitus Hypothyroidism Hyperlipidemia Family History Father No problems noted. Mother No problems noted. Surgical History H/O colonoscopy Hx of cholecystectomy History of knee replacement procedure of right knee History of total abdominal hysterectomy Social History Housing: [facility] Alcohol intake: never Patient Tobacco Use Status: Never used Tobacco Smoked in Last 30 Days: No e-Cigarette/Vaping Use: Never Used Second Hand Smoke Exposure: No Use of substances other than those prescribed or required for medical reasons: No Advance Directives: No Advance Directives Information Provided: Yes Current occupational status: retired Cognitive needs: No Hearing needs: No Vision needs: Yes Meds Allergies Allergy/AdvReac Type Severity Reaction Status Date / Time Penicillins [PCN] Allergy Unknown SWELLING Verified 01/18/23 09:54 baclofen AdvReac Unknown vivid Verified 01/18/23 09:54 dreams, agitation flu vaccine Allergy Unknown unknown Uncoded 01/18/23 09:54 Active Medications: Current Medications Acetaminophen (Acetaminophen 325 Mg Tablet) 650 mg PO Q6H PRN PRN Reason: Pain, Mild (Pain Scale 1-3) Docusate Sodium (Docusate Sodium 100 Mg Capsule) 100 mg PO DAILY PRN PRN Reason: Constipation Enoxaparin Sodium (Enoxaparin Sodium 40 Mg/0.4 Ml Syringe) 40 mg SUBCUT Q24H [facility] Sodium Chloride (Ns) 1,000 mls @ 80 mls/hr IVCONT .[id number] [facility] Ondansetron HCl (Ondansetron Hcl 4 Mg/2 Ml Vial) 4 mg IVPUSH Q8H PRN PRN Reason: Nausea and Vomiting Polyethylene Glycol (Polyethylene Glycol 3350 17 Gm Powd.Pack) 17 gm PO DAILY [facility] Senna (Sennosides 8.6 Mg Tablet) 17.2 mg PO BEDTIME [facility] Sodium Chloride (0.9 % Sodium Chloride Flush 3 Ml Syringe) 3 ml IVFLUSH QSHIFT [facility] Home Medications Medication Instructions Recorded Confirmed Last Taken Type cyanocobalamin (vitamin B-12) 1,000 mcg PO DAILY 01/07/22 01/05/23 Unknown History 1,000 mcg capsule loratadine 10 mg tablet (Claritin) 10 mg PO DAILY 01/07/22 01/05/23 Unknown History aspirin 81 mg chewable tablet 1 tab PO DAILY 09/30/22 01/05/23 Unknown History wicceipq-iop-O. coag-B. tab PO 09/30/22 01/05/23 Unknown History subtilis-inulin 1 billion cell-1 gram chew tab (Culturelle Probiotic-Multivit) Physical Exam Vital Signs and Narrative: Vital Signs: Last Vital Signs Temp 98.2 F 01/18/23 19:32 Pulse 85 01/18/23 19:32 Resp 12 01/18/23 19:32 BP 161/62 H 01/18/23 19:32 Pulse Ox 95 01/18/23 19:32 O2 Del Method Room Air 01/18/23 19:32 BMI result Body Mass Index 29.8 Constitutional - Awake and Alert, No apparent distress Eyes - PERRLA, EOMI Ears - external ears with scant cerumen without impaction, canals without erythema or edema, TMs opacified and scarred without erythema or bulging Cardiovascular - S1S2, RRR, No edema Respiratory - Normal lung expansion, Normal respiratory effort, No respiratory distress, CTA bilaterally Gastrointestinal - NT / ND; +BS; No rebound or guarding Extremities - no calf tenderness bilaterally, no swelling Skin - Warm/Dry Neurological - Alert & oriented x3, horizontal nystagmus, CN II-XII otherwise in tact, 4/5 strength BUE and BLE Psychological - Appropriate affect Results Labs 01/18/23 10:33 01/18/23 10:33 Labs: Laboratory Results - last 24 hr 01/18/23 01/18/23 01/18/23 10:33 10:42 11:02 MCV 79.6 L MCH 26.8 L MCHC 33.7 RDW 16.0 Plt Count 248 MPV 10.5 Immature Gran % (Auto) 0.3 Neut % (Auto) 68.2 Lymph % (Auto) 18.8 L [place] % (Auto) 9.4 Eos % (Auto) 2.8 Baso % (Auto) 0.5 Lymph # (Auto) 1.2 [place] # (Auto) 0.6 Eos # (Auto) 0.2 Baso # (Auto) 0.0 Abs Immat Gran (auto) 0.02 Absolute Neuts (auto) 4.2 Absolute Nucleated RBC 0.000 Nucleated RBC % (auto) 0.0 Anion Gap 11 L Estim Creat Clear Calc 38.9 Estimated GFR 56 Random Glucose 119 H Calcium 9.5 Magnesium 1.8 Total Bilirubin 0.4 AST 24 ALT 19 Alkaline Phosphatase 78 Total Protein 6.8 Albumin 3.9 Lipase 16 Urine Color Yellow Urine Appearance Clear Urine pH 5.5 Ur Specific [place] 1.010 Urine Protein Negative Urine Glucose (UA) Negative Urine Ketones Negative Urine Blood Negative Urine Nitrite Negative Ur Leukocyte Esterase Small (1+) H Urine RBC 0-2 Urine WBC 0-5 Ur Squamous Epith Cells 0-2 Urine Bacteria None Seen Hyaline Casts 0-2 Stool Occult Blood COVID-19 (FAREED) Negative COVID-19 Clin Com See Note Influenza Type A (BENJAMIN) Negative Influenza Type B (BENJAMIN) Negative Influenza A & B Note See Note 01/18/23 14:12 MCV MCH MCHC RDW Plt Count MPV Immature Gran % (Auto) Neut % (Auto) Lymph % (Auto) [place] % (Auto) Eos % (Auto) Baso % (Auto) Lymph # (Auto) [place] # (Auto) Eos # (Auto) Baso # (Auto) Abs Immat Gran (auto) Absolute Neuts (auto) Absolute Nucleated RBC Nucleated RBC % (auto) Anion Gap Estim Creat Clear Calc Estimated GFR Random Glucose Calcium Magnesium Total Bilirubin AST ALT Alkaline Phosphatase Total Protein Albumin Lipase Urine Color Urine Appearance Urine pH Ur Specific [place] Urine Protein Urine Glucose (UA) Urine Ketones Urine Blood Urine Nitrite Ur Leukocyte Esterase Urine RBC Urine WBC Ur Squamous Epith Cells Urine Bacteria Hyaline Casts Stool Occult Blood NEGATIVE COVID-19 (FAREED) COVID-19 Clin Com Influenza Type A (BENJAMIN) Influenza Type B (BENJAMIN) Influenza A & B Note Imaging Radiologist's Impressions: Impressions Abdomen X-Ray 01/18/23 11:16 IMPRESSION: No evidence of bowel obstruction. 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 # orthostatic hypotension -likely in the setting GI loss from vomiting -persisting despite 1 L IVF -continue gentle IV fluids -repeat orthostatics a.m. # vertigo -likely BPPV, could be symptomatic from orthostatic hypotension versus UTI -meclizine 25 mg p.r.n. -if not improving, consider Neurology consult/MRI versus outpatient follow-up -PT evaluation # acute UTI -urine culture 01/16 growing Gram-positive cocci -cefuroxime initiated 01/16. Changed to IV ceftriaxone (initiated 01/18) -no leukocytosis or sepsis -follow CBC, cultures # bilateral lower extremity weakness -PT evaluation # chronic constipation -add scheduled senna and MiraLax -docusate p.r.n. -hold cholestyramine # dfy-hapurmg-ucaoeboub type 2 diabetes -POC glucose -diabetic diet -Humalog on sliding scale -hold metformin # hypothyroidism -continue levothyroxine # s/p TAVR -continue DA PT DVT prophylaxis-Lovenox Full code Time Spent With Patient Time: Total time managing care of this patient today ____ minutes. Quality Stroke Does the patient have a stroke diagnosis?: No VTE Prior VTE?: No VTE Risk Level:: Medical - moderate - high VTE Device Contraindication: Treatment Not Indicated VTE Drug Contraindication: N/A - Med Ordered
[2023-01-18] MEDS: cefTRIAXone sodium 1 GM in 0.9 % Sodium Chloride 50 ML IV (21:30)
[2023-01-18] MEDS: 0.9 % Sodium Chloride 1,000 ML 80 ML IVCONT (21:31)
[2023-01-18] MEDS: Enoxaparin Sodium 40 MG/0.4 ML SYRINGE SUBCUT (21:31)
[2023-01-18] MEDS: Sennosides 8.6 MG TABLET 17.2 MG PO (21:31)
--- NOTE | 2023-01-18 21:37 | PC.NURSE ---
Report to Rafael Whitmore RN.
--- NOTE | 2023-01-18 22:37 | PC.NURSE ---
This RN assumed care upon patient's arrival to [facility], report received from Amanuel Jung RN. Patient transferred to bed with assistance, AOx4 upon assessment. Patient calm, cooperative, extremely pleasant, able to make needs known. Patient was given a warm blanket, water, and call mclaughlin. Patient is currently resting in bed, no acute distress noted.
[2023-01-19 00:27] VITALS: BP 148/72; PULSE 75; RESP 16; TEMP 36.6; O2SAT 95
[2023-01-19 05:18] LABS: MANUAL DIFF FLAG NO
[2023-01-19 05:20] LABS: Basophils Absolute Auto 0.1 X10*3/uL (0.0-0.2); Basophils Percent Auto 0.8 % (0-2); Eosinophils Absolute Auto 0.3 X10*3/uL (0.0-0.4); Eosinophils Percent Auto 4.8 % (0-4); Hematocrit 31.9 % (37.0-47.0); Hemoglobin 10.5 g/dl (12.0-16.0); Imm Gran Abs Auto 0.01 X10*3/uL (0.00-0.03); Imm Gran Pct Auto 0.2 % (0.0-0.4); Lymphocytes Absolute Auto 1.7 X10*3/uL (1.2-4.9); Lymphocytes Percent Auto 26.3 % (20-40); Mean Corpuscular HGB Conc 32.9 g/dl (31.0-35.0); Mean Platelet Volume 9.8 fL (9.4-12.3); Monocytes Absolute Auto 0.7 X10*3/uL (0.1-1.2); Monocytes Percent Auto 10.3 % (2-11); Neutrophils Absolute Auto 3.8 x10*3/uL (2.0-8.3); Neutrophils Percent Auto 57.6 % (45-73); Platelet Count 224 X10*3/uL (160-400); Red Blood Count 3.89 X10*6/uL (4.20-5.50); Red Cell Distribution Width 16.1 % (11.0-16.0); White Blood Count 6.6 X10*3/uL (4.8-10.8)
[2023-01-19 05:37] LABS: Anion Gap 13 (12-20); Blood Urea Nitrogen 10 mg/dL (9-16); Calcium 8.7 mg/dL (8.4-10.2); Carbon Dioxide 25 mmol/L (22-29); Chloride 104 mmol/L (96-108); Creatinine Clr Calc Pharmacy 46.9; Estimated Glomerular Filt Rate > 60; Glucose Random 86 mg/dL (60-115); Sodium 138 mmol/L (135-145)
[2023-01-19 07:28] LABS: Glucose, Whole Blood 94 mg/dL (60-115)
--- NOTE | 2023-01-19 07:40 | PHA.MEDREC ---
Pharmacy Consult ? Medication Reconciliation Pharmacy has completed the medication reconciliation.
--- NOTE | 2023-01-19 07:50 | PC.NURSE ---
Alert and oriented, fluids running per order, denies pain or discomfort
[2023-01-19] MEDS: amLODIPine Besylate 2.5 MG TABLET PO (10:03)
[2023-01-19] MEDS: Levothyroxine Sodium 100 MCG TABLET PO (10:05)
[2023-01-19] MEDS: Aspirin 81 MG TAB.CHEW PO (10:05)
[2023-01-19] MEDS: polyethylene glycoL 3350 17 GM POWD.PACK PO (10:06)
[2023-01-19] MEDS: Loratadine 10 MG TABLET PO (10:06)
[2023-01-19] MEDS: Atorvastatin Calcium 20 MG TABLET PO (10:21)
[2023-01-19] MEDS: 0.9 % Sodium Chloride 1,000 ML 80 ML IVCONT ×2 (10:45→23:17)
--- NOTE | 2023-01-19 10:47 | PC.NURSE ---
oob ambulating to bathroom, savannah lehman, reports no dizziness when ambulating
[2023-01-19 11:32] LABS: Glucose, Whole Blood 116 mg/dL (60-115)
--- NOTE | 2023-01-19 12:34 | MHC.CM.PN ---
Addendum entered by Yoselin Cleaning 01/19/23 14:43: CM MET WITH PT WHO REPORTS SHE WOULD LIKE TO GO HOME WITH HOME PT AND A PLAN TO DRIVE HERSELF TO OP PT ONCE WELL ENOUGH SHE IS ALSO HAPPY ABOUT THE REFERRAL TO [facility] FOR MOW AND POSSIBLE SECURITY ANALYST SERVICES PT SAYS SHE DID HAVE MOW IN THE PAST BUT CANCELED IT PTS DAUGHTER WILL TRANSPORT AT DC REFERRALS OUT TO [facility] Addendum entered by Yoselin Cleaning 01/19/23 13:37: CM RECEIVED A RETURN CALL FROM PTS DAUGHTERJACKIE, SHE REPORTS SHE SPOKE TO THE PT WHO IS NO LONGER INTERESTED IN REHAB SHE IS AGREEABLE TO VNA REFERRALS BEING MADE BUT SAYS HER MOTHER MAY NOT ACCEPT THEM SHE HAD SOME NEGATIVE EXPERIENCES IN THE PAST SHE IS ALSO AGREEABLE TO A REFERRAL TO [facility] FOR MEALS ON WHEELS AND HOME SERVICES REFERRALS WERE MADE Addendum entered by Yoselin Cleaning 01/19/23 12:48: PT NOTE SENT TO ACUTE REHABS THEY ARE CURRENTLY REVIEWING Original Note: PT LIVES ALONE AND HER DAUGHTERS ARE THERE ABLE PT IS WILLING TO GO TO REHAB BUT WANTS CM TO SPEAK TO HER DAUGHTERJACKIE [phone] BEFORE MAKING ANY REFERRALS PT CONCERNED ABOUT RETURNING DIRECTLY HOME BUT AWARE HER INSURANCE WILL NOT COVER STR SHE HAS NOT HAD A QUALIFYING STAY CM CALLED PTS DAUGHTER, JACKIE, WHO IS AWARE PT IS NOT INPT AND MEDICARE WILL NOT COVER STR SHE IS AGREEABLE TO REFERRALS BEING MADE TO ALL THREE LOCAL ACUTE REHABS. SHE ALSO ASKED ABOUT PRIVATE PAYING FOR [facility] SHE IS AWARE PTS PT EVAL IS NOT IN THE SYSTEM YET BUT WILL BE SENT TO THE ACUTE FACILITIES SOON IT IS IN CM WILL CONTACT HER ONCE RESPONSES ARE RECEIVED
--- NOTE | 2023-01-19 14:41 | PC.NURSE ---
Alert and oriented, calm and cooperative, met with case management, IV fluids running per order, denies pain or discomfort. On the phone with daughter.
[2023-01-19 14:56] VITALS: BP 183/65; PULSE 77; RESP 20; TEMP 37.3; O2SAT 94
[2023-01-19 16:39] LABS: Glucose, Whole Blood 164 mg/dL (60-115)
--- NOTE | 2023-01-19 16:39 | HO.PM.IMPN ---
Subjective Subjective Date of Service: 01/19/23 Interval History: Continues to have intermittent dizziness. No other acute issues Review of Systems Denies chest pain Denies shortness of breath Denies nausea vomiting diarrhea Fever chills Physical Exam Vital Signs: Vital Signs: Last Vital Signs Temp 99.1 F 01/19/23 14:56 Pulse 77 01/19/23 14:56 Resp 20 01/19/23 14:56 BP 183/65 H 01/19/23 14:56 Pulse Ox 94 01/19/23 14:56 O2 Del Method Room Air 01/19/23 14:56 BMI result Body Mass Index 29.8 Const: Other: Awake alert no acute distress Resp: Other: Clear to auscultation bilaterally no rales rhonchi wheezes Cardio: Other: No S4; positive S1-S2; no S3 murmurs rubs gallops GI: Other: Soft nontender nondistended normoactive bowel sounds Extrem: Other: No edema bilaterally Objective Data Active Medications Acetaminophen (Acetaminophen 325 Mg Tablet) 650 mg PO Q6H PRN PRN Reason: Pain, Mild (Pain Scale 1-3) Amlodipine Besylate (Amlodipine Besylate 2.5 Mg Tablet) 2.5 mg PO DAILY [facility]; Protocol Last Admin: 01/19/23 10:03 Dose: 2.5 mg Documented By: EARL Aspirin (Aspirin 81 Mg Tab.Chew) 81 mg PO DAILY [facility] Last Admin: 01/19/23 10:05 Dose: 81 mg Documented By: EARL Atorvastatin Calcium (Atorvastatin Calcium 20 Mg Tablet) 20 mg PO DAILY [facility] Last Admin: 01/19/23 10:21 Dose: 20 mg Documented By: EARL Dextrose (Dextrose 50 % 25 Gm/50 Ml Syringe) 25 gm IVPUSH Q15M PRN; Protocol PRN Reason: per Hypoglycemia Standing Ord. Docusate Sodium (Docusate Sodium 100 Mg Capsule) 100 mg PO DAILY PRN PRN Reason: Constipation Enoxaparin Sodium (Enoxaparin Sodium 40 Mg/0.4 Ml Syringe) 40 mg SUBCUT Q24H [facility] Last Admin: 01/18/23 21:31 Dose: 40 mg Documented By: RANDY Glucose (Glucose Gel 15 Gm Gel..Gram.) 15 gm PO Q15M PRN; Protocol PRN Reason: per Hypoglycemia Standing Ord. Sodium Chloride (Ns) 1,000 mls @ 80 mls/hr IVCONT .[id number] [facility] Last Admin: 01/19/23 10:45 Dose: 80 mls/hr Documented By: EARL Ceftriaxone Sodium 1 gm/ (Sodium Chloride) 50 mls @ 100 mls/hr IV Q24H [facility] Last Infusion: 01/18/23 23:27 Dose: Infused Documented By: JORDEN Insulin Human Lispro (Insulin Lispro 100 Unit/Ml 3 Ml Vial) 0 unit SUBCUT QIDACHS [facility]; Protocol Last Admin: 01/19/23 16:35 Dose: Not Given Documented By: EARL Non-Admin Reason: No Insulin Coverage Levothyroxine Sodium (Levothyroxine Sodium 100 Mcg Tablet) 100 mcg PO DAILY@0600 [facility] Last Admin: 01/19/23 10:05 Dose: 100 mcg Documented By: EARL Loratadine (Loratadine 10 Mg Tablet) 10 mg PO DAILY [facility] Last Admin: 01/19/23 10:06 Dose: 10 mg Documented By: EARL Meclizine HCl (Meclizine Hcl 25 Mg Tablet) 25 mg PO Q8H PRN PRN Reason: Vertigo Ondansetron HCl (Ondansetron Hcl 4 Mg/2 Ml Vial) 4 mg IVPUSH Q8H PRN PRN Reason: Nausea and Vomiting Polyethylene Glycol (Polyethylene Glycol 3350 17 Gm Powd.Pack) 17 gm PO DAILY [facility] Last Admin: 01/19/23 10:06 Dose: 17 gm Documented By: EARL Senna (Sennosides 8.6 Mg Tablet) 17.2 mg PO BEDTIME [facility] Last Admin: 01/18/23 21:31 Dose: 17.2 mg Documented By: RANDY Sodium Chloride (0.9 % Sodium Chloride Flush 3 Ml Syringe) 3 ml IVFLUSH QSHIFT [facility] Last Admin: 01/19/23 16:35 Dose: Not Given Documented By: EARL Non-Admin Reason: IV Running Labs 01/19/23 05:07 01/19/23 05:07 Labs: Laboratory Results - last 24 hr 01/19/23 01/19/23 01/19/23 05:07 07:22 11:28 MCV 82.0 MCH 27.0 MCHC 32.9 RDW 16.1 H Plt Count 224 MPV 9.8 Immature Gran % (Auto) 0.2 Neut % (Auto) 57.6 Lymph % (Auto) 26.3 [place] % (Auto) 10.3 Eos % (Auto) 4.8 H Baso % (Auto) 0.8 Lymph # (Auto) 1.7 [place] # (Auto) 0.7 Eos # (Auto) 0.3 Baso # (Auto) 0.1 Abs Immat Gran (auto) 0.01 Absolute Neuts (auto) 3.8 Absolute Nucleated RBC 0.000 Nucleated RBC % (auto) 0.0 Anion Gap 13 Estim Creat Clear Calc 46.9 Estimated GFR > 60 POC Glucose 94 116 H Random Glucose 86 Calcium 8.7 D Assessment and Plan (1) Acute UTI (urinary tract infection): Status: Acute (2) Vertigo: Status: Acute Plan 79-year-old female with history of hyperlipidemia, hypothyroidism, qpq-bsumkjf-ifouyqtnd type 2 diabetes, hypertension, irritable bowel syndrome, 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 1.Acute UTI -preliminary urine culture Gram-positive rods; -DC ceftriaxone.... Will give 1 dose vancomycin -consult ID in a.m. 2.Orthostatic hypotension -likely in the setting GI loss from vomiting -resolved with volume repletion -follow clinically 3.Vertigo -likely combination of BPV along with UTI -continue current therapies 4.Dhp-ozdrvhz-phmoqutkv type 2 diabetes -acceptable control on current therapies -continue to hold metformin -lispro correctional scale Lovenox Full code Requires ongoing hospitalization for IV antibiotics to treat acute UTI which likely contributed to her orthostasis. Patient is at high risk for outpatient failure Time Spent With Patient Time: Total time managing care of this patient today ____ minutes. Quality Stroke Does the patient have a stroke diagnosis?: No VTE Prior VTE?: No VTE Risk Level:: Medical - moderate - high VTE Device Contraindication: Treatment Not Indicated VTE Drug Contraindication: N/A - Med Ordered
[2023-01-19] MEDS: Enoxaparin Sodium 40 MG/0.4 ML SYRINGE SUBCUT (19:48)
[2023-01-19 19:54] VITALS: BP 175/72; PULSE 69; RESP 16; TEMP 37.1; O2SAT 97
[2023-01-19 20:33] LABS: Glucose, Whole Blood 107 mg/dL (60-115)
[2023-01-19] MEDS: cefTRIAXone sodium 1 GM in 0.9 % Sodium Chloride 50 ML IV (23:13)
[2023-01-19 23:20] VITALS: BP 162/70; PULSE 69; RESP 16; TEMP 37.2; O2SAT 98
[2023-01-20 05:11] LABS: MANUAL DIFF FLAG NO
[2023-01-20 05:14] LABS: Basophils Absolute Auto 0.1 X10*3/uL (0.0-0.2); Basophils Percent Auto 0.9 % (0-2); Eosinophils Absolute Auto 0.4 X10*3/uL (0.0-0.4); Eosinophils Percent Auto 7.3 % (0-4); Hematocrit 31.7 % (37.0-47.0); Hemoglobin 10.5 g/dl (12.0-16.0); Imm Gran Abs Auto 0.01 X10*3/uL (0.00-0.03); Imm Gran Pct Auto 0.2 % (0.0-0.4); Lymphocytes Absolute Auto 1.4 X10*3/uL (1.2-4.9); Lymphocytes Percent Auto 23.7 % (20-40); Mean Corpuscular HGB Conc 33.1 g/dl (31.0-35.0); Mean Corpuscular Hemoglobin 26.9 pg (27.0-33.0); Mean Corpuscular Volume 81.3 fL (80.0-98.0); Mean Platelet Volume 10.2 fL (9.4-12.3); Monocytes Absolute Auto 0.7 X10*3/uL (0.1-1.2); Monocytes Percent Auto 11.4 % (2-11); Neutrophils Absolute Auto 3.3 x10*3/uL (2.0-8.3); Neutrophils Percent Auto 56.5 % (45-73); Platelet Count 226 X10*3/uL (160-400); White Blood Count 5.9 X10*3/uL (4.8-10.8)
[2023-01-20] MEDS: Levothyroxine Sodium 100 MCG TABLET PO (05:14)
[2023-01-20 05:23] VITALS: BP 163/65; PULSE 70; RESP 18; TEMP 36; O2SAT 96
[2023-01-20 05:34] LABS: Alanine Aminotransferase 17 U/L (0-31); Albumin Level 3.3 g/dL (3.5-5.0); Alkaline Phosphatase 66 U/L (39-117); Anion Gap 13 (12-20); Aspartate Amino Transferase 22 U/L (5-31); Bilirubin Total 0.4 mg/dL (0.0-1.0); Blood Urea Nitrogen 8 mg/dL (9-16); Calcium 8.4 mg/dL (8.4-10.2); Carbon Dioxide 24 mmol/L (22-29); Chloride 105 mmol/L (96-108); Creatinine Clr Calc Pharmacy 55.4; Estimated Glomerular Filt Rate > 60; Glucose Fasting 93 mg/dL (60-99); Potassium 3.5 mmol/L (3.3-5.1); Sodium 138 mmol/L (135-145); Total Protein 5.8 g/dL (6.5-8.0)
[2023-01-20 07:17] LABS: Glucose, Whole Blood 103 mg/dL (60-115)
[2023-01-20] MEDS: polyethylene glycoL 3350 17 GM POWD.PACK PO (08:06)
[2023-01-20] MEDS: amLODIPine Besylate 2.5 MG TABLET PO (08:06)
[2023-01-20] MEDS: Loratadine 10 MG TABLET PO (08:06)
[2023-01-20] MEDS: Atorvastatin Calcium 20 MG TABLET PO (08:06)
[2023-01-20] MEDS: Aspirin 81 MG TAB.CHEW PO (08:06)
[2023-01-20 08:10] VITALS: BP 183/85; PULSE 85; RESP 16; TEMP 36.4; O2SAT 96
--- NOTE | 2023-01-20 08:23 | PC.NURSE ---
alert and oriented, respirations even and unlabored. sitting up at edge of bed eating breakfast, medicated per the JUL. episode of dizziness while eating breakfast, now resolved.
--- NOTE | 2023-01-20 11:24 | PC.NURSE ---
ambulates with steady gait using walker to bathroom. moved into private room 1. up using recliner at this time. pleasant and chatting with staff.
[2023-01-20 11:38] LABS: Glucose, Whole Blood 108 mg/dL (60-115)
[2023-01-20] MEDS: 0.9 % Sodium Chloride 1,000 ML 80 ML IVCONT (11:45)
[2023-01-20 13:47] VITALS: BP 179/79; RESP 18; O2SAT 100
[2023-01-20 14:03] VITALS: BP 151/89; PULSE 77; RESP 16; TEMP 36.6; O2SAT 97
[2023-01-20 14:19] VITALS: BP 179/79
--- NOTE | 2023-01-20 14:20 | P.DS_ITS ---
DS: Providers Provider Date of Service: 01/20/23 Date of admission: 01/18/23 21:04 Date of discharge: 01/20/23 Primary care physician: Lisa Young MD Consults: 01/20/23 07:23 Consult to Infectious Diseases Stat Consulting Provider[place] [facility] [place] Reason for consultation: Efaecalis UTI Has provider been notified: Yes DS: Diagnosis Discharge Diagnosis (1) Acute UTI (urinary tract infection): Status: Acute (2) Vertigo: Status: Acute DS: Summary Hospital Course Hospital Course: 79-year-old female with history of hyperlipidemia, hypothyroidism, [id number] type 2 diabetes, hypertension, irritable bowel syndrome, 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 The patient was seen in the ED 2 days prior with similar symptoms and diagnosed with UTI, discharged on cefuroxime. The patient continues to experience vertigo like dizziness worse with head movements along with nausea and vomiting. According to the patient's daughter, she has been able to keep antibiotics down but has had decreased appetite. She is also complaining of constipation and was able to move her bowels in the ED following enema. Denies any fevers, chills, abdominal pain, flank pain, dysuria, hematuria, increased urinary frequency, headache, hearing loss, tinnitus, cough, shortness of breath, or chest pain. Urine culture results from 2 days ago growing Gram-positive cocci, final culture results still pending. On arrival, vital signs stable, patient afebrile. There is no leukocytosis. Renal function normal, electrolyte levels normal except for mild hyponatremia of 130 which is chronic. Urinalysis today unremarkable. Stool occult blood negative. Negative for COVID-19. KUB negative for any bowel obstruction which shows moderate amount of stool in the colon and rectum but no other acute findings. Patient was noted to be orthostatic on arrival and received 1 L IVF. However orthostatic vital signs did persist despite IV fluids. She was also given meclizine 25 mg. Hospital Course Admitted to general medical floor and volume repleted with normal saline. Over the course of the next 24-48 hours her symptoms essentially resolved. She was started on ceftriaxone however culture grew E faecalis sensitive to vanco and nitrofurantoin. Discussed with ID and patient will be discharged to complete a 10 day course of linezolid. Discharge was discussed with daughter Kaylen and all questions answered. She will be discharged to home with VNA and follow-up with PCP Time Spent with Patient Time attestation: Total time managing care of this patient today ____ minutes. Discharge coordination time: Greater than 30 minutes Quality: Safe Use of Opioids Does Pt have an Active Cancer Diagnosis on the Problem List?: No Quality: Stroke Does the patient have a stroke diagnosis?: No Physical Exam Vital Signs: Vital Signs: Last Vital Signs Temp 97.8 F 01/20/23 14:03 Pulse 77 01/20/23 14:03 Resp 16 01/20/23 14:03 BP 151/89 H 01/20/23 14:03 Pulse Ox 97 01/20/23 14:03 O2 Del Method Room Air 01/20/23 14:03 BMI result Body Mass Index 29.8 Const: Other: Awake alert no acute distress Resp: Other: Clear to auscultation bilaterally no rales rhonchi wheezes Cardio: Other: No S4; positive S1-S2; no S3 murmurs rubs gallops GI: Other: Soft nontender nondistended normoactive bowel sounds Extrem: Other: No edema bilaterally DS: Data Data Completed and Pending Labs on day of discharge: Laboratory Results - last 24 hr 01/19/23 01/19/23 01/20/23 16:33 20:29 04:54 WBC 5.9 RBC 3.90 L Hgb 10.5 L Hct 31.7 L MCV 81.3 MCH 26.9 L MCHC 33.1 RDW 16.0 Plt Count 226 MPV 10.2 Immature Gran % (Auto) 0.2 Neut % (Auto) 56.5 Lymph % (Auto) 23.7 Jess[place] % (Auto) 11.4 H Eos % (Auto) 7.3 H Baso % (Auto) 0.9 Lymph # (Auto) 1.4 Jess[place] # (Auto) 0.7 Eos # (Auto) 0.4 Baso # (Auto) 0.1 Abs Immat Gran (auto) 0.01 Absolute Neuts (auto) 3.3 Absolute Nucleated RBC 0.000 Nucleated RBC % (auto) 0.0 Sodium 138 Potassium 3.5 Chloride 105 Carbon Dioxide 24 Anion Gap 13 BUN 8 L Creatinine 0.66 Estim Creat Clear Calc 55.4 Estimated GFR > 60 POC Glucose 164 H 107 Fasting Glucose 93 Calcium 8.4 Total Bilirubin 0.4 AST 22 ALT 17 Alkaline Phosphatase 66 Total Protein 5.8 L Albumin 3.3 L 01/20/23 01/20/23 07:14 11:35 WBC RBC Hgb Hct MCV MCH MCHC RDW Plt Count MPV Immature Gran % (Auto) Neut % (Auto) Lymph % (Auto) Jess[place] % (Auto) Eos % (Auto) Baso % (Auto) Lymph # (Auto) Jess[place] # (Auto) Eos # (Auto) Baso # (Auto) Abs Immat Gran (auto) Absolute Neuts (auto) Absolute Nucleated RBC Nucleated RBC % (auto) Sodium Potassium Chloride Carbon Dioxide Anion Gap BUN Creatinine Estim Creat Clear Calc Estimated GFR POC Glucose 103 108 Fasting Glucose Calcium Total Bilirubin AST ALT Alkaline Phosphatase Total Protein Albumin Discharge Plan Discharge Anticipated Discharge Date/Time: 01/20/23 14:12 Patient Disposition: Home Health Service Discharge Diagnosis: UTI Referrals: Lisa Young MD [Primary Care Provider] - Discharge Medications: New linezolid 600 mg Tablet 600 mg PO Q12H Qty: 20 0RF meclizine 25 mg Tablet 25 mg PO Q8H PRN (Reason: Vertigo) Qty: 15 0RF Continued metformin 500 mg tablet 500 mg PO DAILY Qty: 90 3RF cholestyramine (with sugar) 4 gram powder 4 g PO BID Qty: 378 5RF amlodipine 2.5 mg tablet 2.5 mg PO DAILY Qty: 90 3RF atorvastatin 20 mg tablet 20 mg PO DAILY Qty: 90 3RF levothyroxine 100 mcg tablet 100 mcg PO DAILY Qty: 90 3RF aspirin 81 mg tablet,chewable 1 tab PO DAILY loratadine [Claritin] 10 mg tablet 10 mg PO DAILY Discontinued cefuroxime axetil 500 mg tablet 500 mg PO BID 7 Days Qty: 14 0RF Discharge Orders: Discharge Order (Routine); Ordered 01/20/23 Ordered By: Moreno Vides Diet: Advance to usual diet Activity on Discharge: As tolerated Stand Alone Forms: Patient Portal Discharge page Activity Restrictions/Additional Instructions: Your labs today were reassuring. Your urine was negative for infection today however you were recently diagnosed with a urinary tract infection. Please continue taking your antibiotics and finish them to completion to ensure that the infection does not return or worsen. Your abdominal x-ray showed constipation and fecal impaction. You were disimpacted today. MiraLax is a laxative that has been sent to your pharmacy. Take this as needed for constipation. Your orthostatic vital signs were positive today showing that your blood pressure drops upon standing. In order to prevent this, stay hydrated during the day and move slowly when going from a seated to standing position is better. Positive father standing to allow your blood pressure to [place]. Please follow-up with your primary care physician as needed. Please return to the emergency department if your symptoms persist or worsen. In the case of emergencies call 911. Care Plan Goals: You need to complete linezolid 600 mg twice daily for 10 days. You can take meclizine as needed for dizziness. Health Concerns: Resume all medicines as taken previous to hospital Plan of Treatment: Follow-up with your PCP in 2 weeks Assessment: See discharge summary Patient Instructions: Constipation (ED), Hypotension (ED), Fecal Impaction (ED)
--- NOTE | 2023-01-20 14:48 | MHC.CM.PN ---
DP: PT HAS BEEN MEDICALLY CLEARED FOR DC HOME WITH NEW [facility] FOR NURSING/PT SERVICES. DAUGHTER AWARE AND IN AGREEMENT WITH PLAN. [facility] NOTIFIED OF TODAY'S DC. DAUGHTER WILL TRANSPORT HOME.
--- NOTE | 2023-01-20 15:16 | W.MHC.F2F ---
Service Date Service Date: 01/20/23 Encounter Date of encounter: 01/20/23 Encounter: Acute hospitalization Reasons for Services Signs and symptoms assessed: Patient with syncope secondary to volume depletion and UTI Reason for senior living: medication management, medication treatment and teach disease management Reason for physical therapy: home safety and mobility and therapeutic exercises Homebound: Leaving the home is medically contraindicated at this time without the asist of a device and/or another person due th the listed conditions above and below. Reason homebound: unsteady gait / fall risk and unable to drive Certification: Based on the above findings, I certify that this patient is confined to the home and needs intermittent senior living care, physical therapy and/or speech therapy, or continues to need occupational therapy. The patient is under my care, and I have initiated the establishment of the plan of care. The patient will be followed by a physician who will periodically review the plan of care. Time Spent With Patient Time: Total time managing care of this patient today ____ minutes.
--- NOTE | 2023-01-20 16:09 | P.CNID_ITS ---
History of Present Illness Data of Consult Service Date: 01/20/23 Requesting physician: Moreno Vides Primary Care Provider: Lisa Young MD HPI Reason for consult: enterococcus urine,vertigo She presents with vertigo and brought in by family. Urine culture obtained shows enterococcus. She is eating and has no nausea and no abdominal pain. Review of Systems 2 Review of Systems: Yes all other systems are reviewed and are negative PMFSH Past Medical History Medical History Aortic stenosis Annual physical exam Cough Back pain IBS (irritable bowel syndrome) CARMEN (dyspnea on exertion) Nephrolithiasis HTN (hypertension) Type 2 diabetes mellitus Hypothyroidism Hyperlipidemia Family History Family History Father No problems noted. Mother No problems noted. Family history: reviewed and not pertinent Surgical History Surgical History H/O colonoscopy Hx of cholecystectomy History of knee replacement procedure of right knee History of total abdominal hysterectomy Social History [facility] Alcohol intake: never Patient Tobacco Use Status: Never used Tobacco e-Cigarette/Vaping Use: Never Used Second Hand Smoke Exposure: No Current occupational status: retired Cognitive needs: No Hearing needs: No Vision needs: Yes Meds Allergies Allergy/AdvReac Type Severity Reaction Status Date / Time Penicillins [PCN] Allergy Unknown SWELLING Verified 01/18/23 09:54 baclofen AdvReac Unknown vivid Verified 01/18/23 09:54 dreams, agitation flu vaccine Allergy Unknown unknown Uncoded 01/18/23 09:54 Active Medications: Current Medications Acetaminophen (Acetaminophen 325 Mg Tablet) 650 mg PO Q6H PRN PRN Reason: Pain, Mild (Pain Scale 1-3) Amlodipine Besylate (Amlodipine Besylate 2.5 Mg Tablet) 2.5 mg PO DAILY [facility]; Protocol Last Admin: 01/20/23 08:06 Dose: 2.5 mg Aspirin (Aspirin 81 Mg Tab.Chew) 81 mg PO DAILY THAIS Last Admin: 01/20/23 08:06 Dose: 81 mg Atorvastatin Calcium (Atorvastatin Calcium 20 Mg Tablet) 20 mg PO DAILY [facility] Last Admin: 01/20/23 08:06 Dose: 20 mg Dextrose (Dextrose 50 % 25 Gm/50 Ml Syringe) 25 gm IVPUSH Q15M PRN; Protocol PRN Reason: per Hypoglycemia Standing Ord. Docusate Sodium (Docusate Sodium 100 Mg Capsule) 100 mg PO DAILY PRN PRN Reason: Constipation Enoxaparin Sodium (Enoxaparin Sodium 40 Mg/0.4 Ml Syringe) 40 mg SUBCUT Q24H [facility] Last Admin: 01/19/23 19:48 Dose: 40 mg Glucose (Glucose Gel 15 Gm Gel..Gram.) 15 gm PO Q15M PRN; Protocol PRN Reason: per Hypoglycemia Standing Ord. Sodium Chloride (Ns) 1,000 mls @ 80 mls/hr IVCONT .[id number] [facility] Last Infusion: 01/20/23 15:30 Dose: 0 mls/hr Insulin Human Lispro (Insulin Lispro 100 Unit/Ml 3 Ml Vial) 0 unit SUBCUT QIDACHS [facility]; Protocol Last Admin: 01/20/23 11:39 Dose: Not Given Levothyroxine Sodium (Levothyroxine Sodium 100 Mcg Tablet) 100 mcg PO DAILY@0600 [facility] Last Admin: 01/20/23 05:14 Dose: 100 mcg Linezolid (Linezolid 600 Mg Tablet) 600 mg PO Q12H [facility] Loratadine (Loratadine 10 Mg Tablet) 10 mg PO DAILY [facility] Last Admin: 01/20/23 08:06 Dose: 10 mg Meclizine HCl (Meclizine Hcl 25 Mg Tablet) 25 mg PO Q8H PRN PRN Reason: Vertigo Ondansetron HCl (Ondansetron Hcl 4 Mg/2 Ml Vial) 4 mg IVPUSH Q8H PRN PRN Reason: Nausea and Vomiting Polyethylene Glycol (Polyethylene Glycol 3350 17 Gm Powd.Pack) 17 gm PO DAILY [facility] Last Admin: 01/20/23 08:06 Dose: 17 gm Senna (Sennosides 8.6 Mg Tablet) 17.2 mg PO BEDTIME [facility] Last Admin: 01/19/23 19:48 Dose: Not Given Sodium Chloride (0.9 % Sodium Chloride Flush 3 Ml Syringe) 3 ml IVFLUSH QSHIFT [facility] Last Admin: 01/20/23 08:06 Dose: Not Given Home Medications Medication Instructions Recorded Confirmed Last Taken Type loratadine 10 mg tablet (Claritin) 10 mg PO DAILY 01/07/22 01/18/23 Unknown History aspirin 81 mg chewable tablet 1 tab PO DAILY 09/30/22 01/18/23 Unknown History Physical Exam 2 Vital Signs: Vital Signs: Last Vital Signs Temp 97.8 F 01/20/23 14:03 Pulse 77 01/20/23 14:03 Resp 16 01/20/23 14:03 BP 179/79 H 01/20/23 14:19 Pulse Ox 97 01/20/23 14:03 O2 Del Method Room Air 01/20/23 14:03 BMI result Body Mass Index 29.8 Const: General: cooperative HEENT: Head: Yes normal to inspection Face and sinus: Yes normal facial exam Mouth: Normal oral and palatal mucosa present Teeth and gingiva: d entition normal Eyes: General: appearance normal, both eyes and all related structures P upils: Equal, round and reactive pupils present Resp: Effort & Inspection: normal respiratory effort Cardio: Rate: regular rate Rhythm: regular rhythm GI: Palpation (GI): Soft to palpation and nontender : General: Yes no CVA tenderness Back/Spine/Pelvis: Back: no CVA tenderness Skin: General skin exam: no rashes or lesions noted Neuro: General: moves all extremities Cranial nerves: Yes Equal, round and reactive pupils present Extrem: General: Yes normal to inspection Psych: Appearance: grossly normal Results Labs 01/20/23 04:54 01/20/23 04:54 Labs: Short CBC 01/20/23 Range/Units 04:54 WBC 5.9 (4.8-10.8) X10*3/uL Hgb 10.5 L (12.0-16.0) g/dl Hct 31.7 L (37.0-47.0) % Plt Count 226 (160-400) X10*3/uL BMP 01/20/23 04:54 Sodium 138 Potassium 3.5 Chloride 105 Carbon Dioxide 24 BUN 8 L Creatinine 0.66 Calcium 8.4 Liver Function 01/20/23 Range/Units 04:54 Total Bilirubin 0.4 (0.0-1.0) mg/dL AST 22 (5-31) U/L ALT 17 (0-31) U/L Alkaline Phosphatase 66 (39-117) U/L Albumin 3.3 L (3.5-5.0) g/dL Assessment and Plan (1) Acute UTI (urinary tract infection): Status: Acute She has enterococcus. This is unlikely cause of vertigo and may just be colonized. (2) Vertigo: Status: Acute (3) Fecal impaction: Status: Acute Plan Would treat anyway with linezolid 600 mg bid 7-10 days Time Spent With Patient Time: Total time managing care of this patient today ____ minutes.
== END 2023-01-20 16:00 | disposition home health service (06) ==
LOC: HO.ED 14:54 → HO.EDOVER 21:04
PROVIDERS: Physician Assistant Medical; Student in an Organized Health Care Education/Training Program; Admitting Provider Physician Assistant; Emergency Provider Emergency Medicine; PCP Internal Medicine; Visit Provider Hospitalist
DX: N39.0 Urinary tract infection, site not specified (principal); B95.2 Enterococcus as the cause of diseases classified elsewhere; R42 Dizziness and giddiness; I95.1 Orthostatic hypotension; K56.41 Fecal impaction; R35.1 Nocturia; R11.0 Nausea; E11.9 Type 2 diabetes mellitus without complications; E03.9 Hypothyroidism, unspecified; E78.5 Hyperlipidemia, unspecified; I10 Essential (primary) hypertension; Z20.822 Contact with and (suspected) exposure to COVID-19; I44.0 Atrioventricular block, first degree; Z79.899 Other long term (current) drug therapy
CPT/HCPCS: 36415; 74019; 80048; 80053; 81001; 82272; 82947; 83690; 83735; 85025; 87502; 87635; 93005; 96361; 96365; 96366; 96372; 97116; 97162; 99221; 99285; J0696; J1650

== ENCOUNTER → 2023-01-18 21:04 | Outpatient (BNV) | payer MEDICARE, OTHER, SELFPAY | PROVIDERS: Admitting Provider Physician Assistant; Emergency Provider Emergency Medicine; PCP Internal Medicine; Visit Provider Internal Medicine | DX: N39.0 Urinary tract infection, site not specified (principal); R42 Dizziness and giddiness; K56.41 Fecal impaction | CPT/HCPCS: 99221 ==

== ENCOUNTER → 2023-01-18 21:04 | Outpatient (BNV) | payer MEDICARE, OTHER, SELFPAY | PROVIDERS: Admitting Provider Physician Assistant; Emergency Provider Emergency Medicine; PCP Internal Medicine; Visit Provider Physician Assistant | DX: N39.0 Urinary tract infection, site not specified (principal); R42 Dizziness and giddiness | CPT/HCPCS: 99223; 99232; 99239; G0180 ==

== ENCOUNTER 2023-02-04 12:57 | Outpatient (AMB) | payer MEDICARE, OTHER, SELFPAY ==
--- NOTE | 2023-02-04 13:06 | A.OFFPC_ITS ---
Vital Signs 02/04/23 13:07 02/04/23 14:43 Height 5 ft 4 in Weight 150 lb BMI 25.7 BP 120/72 100/78 Blood Pressure Location Lt brachial Rt brachial Position Sitting Standing Pulse 94 Pulse Source Pulse Oximeter Pulse Oximetry (%) 97 Intake Visit Reasons: one month fu Intake Note: Pt is here today for 1 month follow up visit. Pt states that she was in the hospital last month. Allergies Penicillins [PCN] Allergy (Unknown, Verified 02/04/23 13:07) SWELLING baclofen Adverse Reaction (Unknown, Verified 02/04/23 13:07) vivid dreams, agitation flu vaccine Allergy (Unknown, Uncoded 02/04/23 13:07) unknown Medication List - Last Reconciled 02/04/23 by Lisa Young MD amlodipine 2.5 mg PO DAILY aspirin 1 tab PO DAILY atorvastatin 20 mg PO DAILY cholestyramine (with sugar) 4 gram 4 grams PO BID levothyroxine 100 mcg PO DAILY linezolid 600 mg PO Q12H loratadine (Claritin) 10 mg PO DAILY meclizine 25 mg PO Q8H PRN metformin 500 mg PO DAILY Tobacco use date assessed: 01/05/23 HPI one month fu HPI Details Patient presents for the follow-up of ER visit. She complains of persistent lightheadedness worse when getting up suddenly. Patient is afraid of walking and becomes unsteady on her feet. She was treated for UTI and denies dysuria or urinary frequency but reports chronic constipation. Patient has been taking MiraLax which causes diarrhea. Type 2 diabetes stable on [facility] Medical History (Updated 02/04/23 @ 14:47 by Lisa Young MD) Constipation Orthostatic hypotension Aortic stenosis (~02/04/23) Annual physical exam Cough Back pain IBS (irritable bowel syndrome) CARMEN (dyspnea on exertion) Nephrolithiasis HTN (hypertension) Type 2 diabetes mellitus Hypothyroidism Hyperlipidemia Surgical History H/O colonoscopy Hx of cholecystectomy History of knee replacement procedure of right knee History of total abdominal hysterectomy Family History Father No problems noted. Mother No problems noted. [facility] Alcohol intake: never Patient Tobacco Use Status: Never used Tobacco e-Cigarette/Vaping Use: Never Used Second Hand Smoke Exposure: No Current occupational status: retired Cognitive needs: No Hearing needs: No Vision needs: Yes Questionnaire Thrive Questionnaire Date Thrive assessed: 09/30/22 JARED-7 AMB Questionnaire JARED-7 Date JARED - 7 assessed: 09/30/22 Source: Developed by Drs. Filiberto Valero, Lindsey Roger, Liban Ko and colleagues, with an educational antonia from [address]. Review of Systems Const All systems reviewed & are unremarkable except as noted in HPI and below Reports no additional complaints Eyes Reports no additional complaints ENT Reports no additional complaints Card Reports no additional complaints Resp Reports no additional complaints Reports no additional complaints Physical exam (Primary Care) Vital Signs: Last Vital Signs Pulse 94 02/04/23 13:07 BP 142/72 H 02/04/23 13:07 Pulse Ox 97 02/04/23 13:07 BMI result Body Mass Index 25.7 Tobacco/Smoking Status: Tobacco use Status Tobacco use date assessed 01/05/23 02/04/23 13:06 Patient Tobacco Use Status Never used Tobacco 02/04/23 13:06 e-Cigarette/Vaping Use Never Used 02/04/23 13:06 Thrive Assessment: Date of Thrive Assessment Date Thrive assessed 09/30/22 02/04/23 13:06 Const General: no acute distress HENMT Face and sinus: Yes normal facial exam Eyes General: appearance normal, both eyes and all related structures Neck Neck: Yes supple Resp Effort & Inspection: normal respiratory effort Auscultation: clear to auscultation bilaterally Cardio Rhythm: regular rhythm Heart sounds: S1 normal heart sound present and S2 normal heart sound present GI Inspection: Yes normal to inspection Palpation (GI): Soft to palpation Percussion: Yes normal to percussion Auscultation: normal bowel sounds Assessment and Plan Assessment & Plan (1) Hypothyroidism: Code(s): E03.9 - Hypothyroidism, unspecified Plan: Continue levothyroxine (2) Orthostatic hypotension: Code(s): I95.1 - Orthostatic hypotension Plan: Patient will stop Amlodipine and was advised to drink a glass electrolyte solution every day. Check basic metabolic panel and monitor sodium level (3) Constipation: Code(s): K59.00 - Constipation, unspecified Plan: Patient was advised to start taking Citrucel and stool softeners on daily basis increase fiber intake and use MiraLax only as needed Orders: Orders Basic Metabolic Panel Today E03.9 - Hypothyroidism, unspecified Medications: Discontinued linezolid Discontinued Reason: Doctor's Order 600 mg PO Q12H 20 tabs 0RF amlodipine Discontinued Reason: Doctor's Order 2.5 mg PO DAILY 90 tabs 3RF Coding Level of Care Code Est Pt Level 4 (43065) Diagnoses Hypothyroidism E03.9 Orthostatic hypotension I95.1 Constipation K59.00
[2023-02-04 13:07] VITALS: BP 120/72; PULSE 94; O2SAT 97; BMI 25.7
[2023-02-04 14:43] VITALS: BP 100/78
== END 2023-02-04 14:48 | disposition home or self-care (01) ==
PROVIDERS: PCP Internal Medicine; Visit Provider Internal Medicine
DX: E03.9 Hypothyroidism, unspecified (principal); I95.1 Orthostatic hypotension; K59.00 Constipation, unspecified
CPT/HCPCS: 99214

== ENCOUNTER 2023-02-04 14:06 | Outpatient (REF) | payer MEDICARE, OTHER, SELFPAY ==
[2023-02-04 17:01] LABS: Anion Gap 17 (12-20); Blood Urea Nitrogen 13 mg/dL (9-16); Calcium 9.5 mg/dL (8.4-10.2); Carbon Dioxide 24 mmol/L (22-29); Chloride 94 mmol/L (96-108); Estimated Glomerular Filt Rate > 60; Glucose Random 115 mg/dL (60-115); Potassium 4.5 mmol/L (3.3-5.1); Sodium 130 mmol/L (135-145)
== END 2023-02-04 14:07 | disposition home or self-care (01) ==
LOC: HO.HMGCLDS 14:06
PROVIDERS: PCP Internal Medicine; Visit Provider Internal Medicine
DX: E03.9 Hypothyroidism, unspecified (principal)
CPT/HCPCS: 36415; 80048

== ENCOUNTER 2023-02-18 13:34 | Outpatient (REF) | payer MEDICARE, OTHER, SELFPAY ==
[2023-02-18 16:13] LABS: Anion Gap 16 (12-20); Blood Urea Nitrogen 10 mg/dL (9-16); Calcium 9.6 mg/dL (8.4-10.2); Carbon Dioxide 24 mmol/L (22-29); Chloride 92 mmol/L (96-108); Estimated Glomerular Filt Rate > 60; Glucose Random 114 mg/dL (60-115); Potassium 4.5 mmol/L (3.3-5.1); Sodium 127 mmol/L (135-145)
== END 2023-02-18 13:35 | disposition home or self-care (01) ==
LOC: HO.HMGCLDS 13:34
PROVIDERS: PCP Internal Medicine; Visit Provider Internal Medicine
DX: E87.1 Hypo-osmolality and hyponatremia (principal)
CPT/HCPCS: 36415; 80048

== ENCOUNTER 2023-02-22 13:24 | Outpatient (AMB) | payer MEDICARE, OTHER, SELFPAY ==
[2023-02-22 13:24] VITALS: BP 120/72; PULSE 76; O2SAT 96; BMI 25.4
--- NOTE | 2023-02-22 13:24 | MHC.PC.OV ---
Vital Signs 02/22/23 13:24 02/22/23 14:12 Height 5 ft 4 in Weight 148 lb BMI 25.4 BP 120/72 100/65 Blood Pressure Location Lt brachial Rt brachial Position Sitting Standing Pulse 76 Pulse Source Pulse Oximeter Pulse Oximetry (%) 96 Oxygen Delivery Method Room Air Intake Visit Reasons: Cataract surgery on 03/03/23 Dr. Calixto Intake Note: Pt is here today for a pre op visit. Allergies Penicillins [PCN] Allergy (Unknown, Verified 02/22/23 13:31) SWELLING baclofen Adverse Reaction (Unknown, Verified 02/22/23 13:31) vivid dreams, agitation flu vaccine Allergy (Unknown, Uncoded 02/22/23 13:31) unknown Medication List - Last Reconciled 02/22/23 by Lisa Young MD aspirin 1 tab PO DAILY atorvastatin 20 mg PO DAILY cholestyramine (with sugar) 4 gram 4 grams PO BID levothyroxine 100 mcg PO DAILY loratadine (Claritin) 10 mg PO DAILY meclizine 25 mg PO Q8H PRN metformin 500 mg PO DAILY Tobacco use date assessed: 02/22/23 HPI Cataract surgery on 03/03/23 Dr. Calixto HPI Details Pt presents for preop for cataract surgery and follow-up for orthostatic hypotension. Patient reports feeling better since she stop taking amlodipine. She has been drinking 10 oz extra of Gatorade a day. Constipation is controlled on combination with MiraLax and stool softeners. [facility] Medical History (Updated 02/22/23 @ 14:15 by Lisa Young MD) Constipation Orthostatic hypotension Aortic stenosis (~02/04/23) Annual physical exam Cough Back pain IBS (irritable bowel syndrome) CARMEN (dyspnea on exertion) Nephrolithiasis HTN (hypertension) Type 2 diabetes mellitus Hypothyroidism Hyperlipidemia Surgical History H/O colonoscopy Hx of cholecystectomy History of knee replacement procedure of right knee History of total abdominal hysterectomy Family History Father No problems noted. Mother No problems noted. Social History Housing: Condominium Alcohol intake: never Patient Tobacco Use Status: Never used Tobacco e-Cigarette/Vaping Use: Never Used Second Hand Smoke Exposure: No Current occupational status: retired Cognitive needs: No Hearing needs: No Vision needs: Yes Questionnaire Thrive Questionnaire Date Thrive assessed: 09/30/22 JARED-7 AMB Questionnaire JARED-7 Date JARED - 7 assessed: 09/30/22 Source: Developed by Drs. Filiberto Valero, Lindsey Roger, Liban Ko and colleagues, with an educational antonia from [employer]. Review of Systems Const All systems reviewed & are unremarkable except as noted in HPI and below Reports no additional complaints Eyes Reports no additional complaints ENT Reports no additional complaints Card Reports no additional complaints Resp Reports no additional complaints GI Reports no additional complaints Physical exam (Primary Care) Vital Signs: Last Vital Signs Pulse 76 02/22/23 13:24 BP 142/72 H 02/22/23 13:24 Pulse Ox 96 02/22/23 13:24 Oxygen Delivery Method Room Air 02/22/23 13:24 BMI result Body Mass Index 25.4 Tobacco/Smoking Status: Tobacco use Status Tobacco use date assessed 02/22/23 02/22/23 13:33 Patient Tobacco Use Status Never used Tobacco 02/22/23 13:33 e-Cigarette/Vaping Use Never Used 02/22/23 13:29 Thrive Assessment: Date of Thrive Assessment Date Thrive assessed 09/30/22 02/22/23 13:29 Const General: no acute distress HENMT Mouth: Normal oral and palatal mucosa present Eyes General: appearance normal, both eyes and all related structures Resp Effort & Inspection: normal respiratory effort Auscultation: clear to auscultation bilaterally Cardio Rhythm: regular rhythm Heart sounds: S1 normal heart sound present and S2 normal heart sound present GI Palpation (GI): Soft to palpation Percussion: Yes normal to percussion Auscultation: normal bowel sounds Assessment and Plan Assessment & Plan (1) Low sodium levels: Code(s): E87.1 - Hypo-osmolality and hyponatremia Plan: Patient was advised to follow fluid restriction 48 oz of fluids a day and start sodium tablets 1 g daily, BMP will be checked in 1 week (2) Orthostatic hypotension: Code(s): I95.1 - Orthostatic hypotension Plan: Improved , off amlodipine (3) Cataract: Code(s): H26.9 - Unspecified cataract Plan: Patient is medically cleared for cataract surgery (4) Hypothyroidism: Code(s): E03.9 - Hypothyroidism, unspecified Plan: Continue levothyroxine (5) Hyperglycemia: Code(s): R73.9 - Hyperglycemia, unspecified Plan: Patient was advised to stop metformin, will be monitoring fasting blood glucose Orders: Orders Complete Blood Count Auto Diff 1 Week E87.1 - Hypo-osmolality and hyponatremia, I95.1 - Orthostatic hypotension IRON PROFILE 1 Week E87.1 - Hypo-osmolality and hyponatremia, I95.1 - Orthostatic hypotension Basic Metabolic Panel 1 Week E87.1 - Hypo-osmolality and hyponatremia Medications: New sodium chloride 1,000 mg PO DAILY 30 tabs 0RF Discontinued metformin Discontinued Reason: Doctor's Order 500 mg PO DAILY 90 tabs 3RF Coding Level of Care Code Est Pt Level 4 (81835) Diagnoses Low sodium levels E87.1 Orthostatic hypotension I95.1 Cataract H26.9 Hypothyroidism E03.9 Hyperglycemia R73.9
[2023-02-22 14:12] VITALS: BP 100/65
== END 2023-02-22 14:16 | disposition home or self-care (01) ==
PROVIDERS: PCP Internal Medicine; Visit Provider Internal Medicine
DX: E87.1 Hypo-osmolality and hyponatremia (principal); I95.1 Orthostatic hypotension; H26.9 Unspecified cataract; E03.9 Hypothyroidism, unspecified; R73.9 Hyperglycemia, unspecified
CPT/HCPCS: 99214

== ENCOUNTER 2023-03-04 10:54 | Outpatient (REF) | payer MEDICARE, OTHER, SELFPAY ==
[2023-03-04 13:07] LABS: MANUAL DIFF FLAG NO
[2023-03-04 13:22] LABS: Basophils Absolute Auto 0.1 X10*3/uL (0.0-0.2); Basophils Percent Auto 0.8 % (0-2); Eosinophils Absolute Auto 0.2 X10*3/uL (0.0-0.4); Eosinophils Percent Auto 3.5 % (0-4); Hematocrit 34.2 % (37.0-47.0); Hemoglobin 11.2 g/dl (12.0-16.0); Imm Gran Abs Auto 0.02 X10*3/uL (0.00-0.03); Imm Gran Pct Auto 0.3 % (0.0-0.4); Lymphocytes Absolute Auto 1.2 X10*3/uL (1.2-4.9); Lymphocytes Percent Auto 19.8 % (20-40); Mean Corpuscular HGB Conc 32.7 g/dl (31.0-35.0); Mean Corpuscular Hemoglobin 27.3 pg (27.0-33.0); Mean Corpuscular Volume 83.4 fL (80.0-98.0); Mean Platelet Volume 11.3 fL (9.4-12.3); Monocytes Absolute Auto 0.6 X10*3/uL (0.1-1.2); Monocytes Percent Auto 9.4 % (2-11); Neutrophils Absolute Auto 4.1 x10*3/uL (2.0-8.3); Neutrophils Percent Auto 66.2 % (45-73); Platelet Count 238 X10*3/uL (160-400); White Blood Count 6.3 X10*3/uL (4.8-10.8)
[2023-03-04 14:12] LABS: Anion Gap 10 (12-20); Blood Urea Nitrogen 17 mg/dL (9-16); Calcium 9.6 mg/dL (8.4-10.2); Carbon Dioxide 27 mmol/L (22-29); Chloride 101 mmol/L (96-108); Estimated Glomerular Filt Rate 56; Glucose Random 110 mg/dL (60-115); Iron 41 mcg/dL (30-160); Percent Iron Saturation 13 % (15-50); Sodium 134 mmol/L (135-145); Total Iron Binding Capacity 310 mcg/dL (228-428); Unsaturated Iron Binding 269 ug/dL
== END 2023-03-04 10:55 | disposition home or self-care (01) ==
LOC: HO.HMGCLDS 10:54
PROVIDERS: PCP Internal Medicine; Visit Provider Internal Medicine
DX: E87.1 Hypo-osmolality and hyponatremia (principal); I95.1 Orthostatic hypotension
CPT/HCPCS: 36415; 80048; 83540; 85025

== ENCOUNTER 2023-03-15 09:23 | Outpatient (AMB) | payer MEDICARE, OTHER, SELFPAY ==
[2023-03-15 09:27] VITALS: BP 132/90; PULSE 94; TEMP 36.1; O2SAT 96; BMI 25.3
--- NOTE | 2023-03-15 09:27 | A.OFFVIS_ITS ---
Intake Vital Signs 03/15/23 09:27 Height 5 ft 4 in Weight 147 lb 7.828 oz BMI 25.3 BP 132/90 H Blood Pressure Location Rt brachial Position Sitting Pulse 94 Pulse Source Pulse Oximeter Temp 97 F Temp Source Skin Pulse Oximetry (%) 96 Oxygen Delivery Method Room Air Intake Visit Reasons: Trochanteric Bursitis Intake Note: Patient presents today to follow up on left hip pain and lady hip injection. 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 Accompanied by: Self / Same As Patient Allergies Penicillins [PCN] Allergy (Unknown, Verified 03/15/23 09:31) SWELLING baclofen Adverse Reaction (Unknown, Verified 03/15/23 09:31) vivid dreams, agitation flu vaccine Allergy (Unknown, Uncoded 03/15/23 09:31) unknown Medication List - Last Reconciled 03/15/23 by Freddy Aguilar MD aspirin 1 tab PO DAILY atorvastatin 20 mg PO DAILY azelastine intranasal cholestyramine (with sugar) 4 gram 4 grams PO BID ketorolac 0.5% drps ophthalmic (eye) levothyroxine 100 mcg PO DAILY loratadine (Claritin) 10 mg PO DAILY prednisolone acetate 1% drps ophthalmic (eye) sodium chloride 1,000 mg PO DAILY HPI HPI Comments History of Present Illness Details The patient returns for evaluation of her bilateral trochanteric bursitis, right total knee replacement, and left knee osteoarthritis. Since her last visit she has had the right cataract operated on and that went well. She was also hospitalized briefly for urinary tract infection. There are no urinary symptoms at this point. She said she was getting orthostatic dizziness and that was helped when she was discontinued off the amlodipine. She walks with a walker at this point, mostly for concerns about falling although certainly she has knee pain particularly on the left knee with prolonged standing walking. The right knee that had knee replacement also is bothersome at times with anterior and lateral pain, usually with weight-bearing activities. She is finishing up some home physical therapy and plans to try to attend the physical therapy outpatient unit. She does have an exercise bicycle in her living room and uses it a few times a day. She finds that if she uses it regularly the left leg does not swell as much and has less pain. The lateral hips were injected last time for trochanteric bursitis. They have done pretty well until the last few weeks went lateral hip pains have returned. PFSH Medical History (Updated 03/05/23 @ 15:41 by Lisa Young MD) Constipation Orthostatic hypotension Aortic stenosis (~02/04/23) Annual physical exam Cough Back pain IBS (irritable bowel syndrome) CARMEN (dyspnea on exertion) Nephrolithiasis HTN (hypertension) Type 2 diabetes mellitus Hypothyroidism Hyperlipidemia Surgical History (Updated 03/15/23 @ 09:32 by CHADWICK Mims) History of cataract surgery History of heart surgery H/O colonoscopy Hx of cholecystectomy History of knee replacement procedure of right knee History of total abdominal hysterectomy Family History Father No problems noted. Mother No problems noted. Social History Housing: [facility]– [place] Alcohol intake: never Patient Tobacco Use Status: Never used Tobacco e-Cigarette/Vaping Use: Never Used Second Hand Smoke Exposure: No Current occupational status: retired Cognitive needs: No Hearing needs: No Vision needs: Yes Review of Systems Const Details: Negative for appetite change, weight change, fever, chills, malaise and fatigue Eyes Details: Negative for vision change, dry eyes,headaches and dizziness Card Details: Negative chest pain, edema and syncope Resp Details: Negative for SOB, cough and wheezing GI Details: Negative indigestion/heartburn, nausea, abdominal pain, bowel changes, diarrhea, constipation and bloody stool. Details: Negative for dysuria, hematuria, nocturia, decreased force/flow and genital discharge Toi/Lymph Details: Negative for excessive bruising or bleeding. Physical Exam Vital Signs: Last Vital Signs Temp 97 F 03/15/23 09:27 Pulse 94 03/15/23 09:27 BP 132/90 H 03/15/23 09:27 Pulse Ox 96 03/15/23 09:27 Oxygen Delivery Method Room Air 03/15/23 09:27 BMI result Body Mass Index 25.3 APPEARANCE: Patient in no acute distress EYES no redness, pupils equal and reactive to light, eyelids normal EXTREMITIES: No edema, no calf tenderness, normal peripheral pulses. JOINT EXAM: Hands:.? Normal pain-free range of motion with slight bony enlargement and mild tenderness across?the PIP and the IP joints.? There is mild to moderate bony enlargement and tenderness at the base of the left thumb and mild bony enlargement without tenderness at the base of the right thumb.? No soft tissue swelling, increased warmth or erythema.? No thenar atrophy or sensory loss. Wrists:.? Normal pain-free range of motion without tenderness, swelling, increased warmth or erythema. Elbows:. Normal pain-free range of motion without tenderness, swelling, increased warmth or erythema. Shoulders:.?? Full range of motion with mild discomfort at the extremes of motion.? Slight anterior tenderness but no adenopathy, weakness, swelling, increased warmth or erythema. Hips:.? Left: Full range of motion with mild lateral pains at the extremes of external rotation in abduction.? Right: Normal pain-free range of motion without any groin pain with motion. Hip bursa:.? Left greater than right trochanteric tenderness. Knees:.??Right:? Mild pain with extremes of full extension but range of motion seems intact.? There is some minimal tenderness over the patellar tendon and the lateral joint margin without swelling or redness.? There is no fluid, redness or warmth notable around the knee.? The anterior scar seems well healed.? Left:? Mild pain at full extension. She has mild patellofemoral crepitus and mild medial compartment tenderness without effusion, soft tissue swelling, increased warmth or erythema.? Ankles:? Normal pain-free range of motion without tenderness, swelling, increased warmth or erythema. Office Procedures Joint Injection/Drain Joint Injection/Drain Primary Site: other (left hip bursa(trochanteric bursa)) Secondary Site: other (rght hip bursa(trochanteric bursa)) Injected: 80 mg of, with 3 mL of and 1% plain lidocaine Coding Details: With the patient's consent, the left lateral hip area was prepped with for Chloraprep and alcohol. Under a topical ethyl chloride spray the tender area over the trochanteric region was injected with 40 mg of Kenalog and 1 cc of 1% lidocaine. The patient tolerated the procedure with no adverse effects. With the patient's consent, the right lateral hip area was prepped with for Chloraprep and alcohol. Under a topical ethyl chloride spray the tender area over the trochanteric region was injected with 40 mg of Kenalog and 1 cc of 1% lidocaine. The patient tolerated the procedure with no adverse effects. 75857 - Large joint Procedure code (CPT) selection complete Assessment & Plan Assessment & Plan (1) History of knee replacement procedure of right knee: Code(s): Z96.651 - Presence of right artificial knee joint (2) Osteoarthritis of left knee: Code(s): M17.12 - Unilateral primary osteoarthritis, left knee (3) Trochanteric bursitis of both hips: Code(s): M70.61 - Trochanteric bursitis, right hip; M70.62 - Trochanteric bursitis, left hip Plan She is having some recurrence of the lateral hip pain consistent with trochanteric bursitis. The left knee has pretty severe osteoarthritis and were it not for her age replacement there might be appropriate. She does seem to do well if she uses it regularly with her exercise bicycle routine. The right knee is having some pain, in spite of it is being replaced in the past. That may require further orthopedic evaluation if symptoms worsen. She wants another set of trochanteric injections today and that seems reasonable. We would be aiming to keep her functional and continue with her physical therapy exercises both at home and in the physical therapy as an outpatient if she can make it there. With the patient's consent, the left lateral hip area was prepped with for Chloraprep and alcohol. Under a topical ethyl chloride spray the tender area over the trochanteric region was injected with 40 mg of Kenalog and 1 cc of 1% lidocaine. The patient tolerated the procedure with no adverse effects. With the patient's consent, the right lateral hip area was prepped with for Chloraprep and alcohol. Under a topical ethyl chloride spray the tender area over the trochanteric region was injected with 40 mg of Kenalog and 1 cc of 1% lidocaine. The patient tolerated the procedure with no adverse effects. She will rest the areas for a few days. We will schedule a return visit in about 5 months. Orders: Orders AMB Joint Injection/Aspiration Today M70.61 - Trochanteric bursitis, right hip, M70.62 - Trochanteric bursitis, left hip Coding Level of Care Code Est Pt Level 3 (91115) Diagnoses History of knee replacement procedure of right knee Z96.651 Osteoarthritis of left knee M17.12 Trochanteric bursitis of both hips M70.61; M70.62 CPT Codes Coding - 07316 Large joint: 06422 - Large joint ([id number])
== END 2023-03-15 10:03 | disposition home or self-care (01) ==
PROVIDERS: PCP Internal Medicine; Visit Provider Internal Medicine Rheumatology
DX: M70.61 Trochanteric bursitis, right hip (principal); M70.62 Trochanteric bursitis, left hip; Z96.651 Presence of right artificial knee joint; M17.12 Unilateral primary osteoarthritis, left knee
CPT/HCPCS: 20610; 99213

== ENCOUNTER → 2023-03-15 09:23 | Outpatient (BNVA) | payer MEDICARE, OTHER, SELFPAY | PROVIDERS: PCP Internal Medicine; Visit Provider Internal Medicine Rheumatology | DX: M70.61 Trochanteric bursitis, right hip (principal); M70.62 Trochanteric bursitis, left hip; M17.12 Unilateral primary osteoarthritis, left knee; Z96.651 Presence of right artificial knee joint | CPT/HCPCS: 20610; 99212 ==

== ENCOUNTER 2023-03-19 09:04 | Outpatient (AMB) | payer MEDICARE, OTHER, SELFPAY ==
--- NOTE | 2023-03-19 09:09 | AM.OFFVISMDC ---
Intake Vital Signs 03/19/23 09:11 Height 5 ft 4 in Weight 146 lb BMI 25.1 BP 128/80 Blood Pressure Location Lt brachial Position Sitting Pulse 69 Pulse Source Pulse Oximeter Pulse Oximetry (%) 97 Oxygen Delivery Method Room Air Intake Visit Reasons: SWV G0349 Allergies Penicillins [PCN] Allergy (Unknown, Verified 03/15/23 09:31) SWELLING baclofen Adverse Reaction (Unknown, Verified 03/15/23 09:31) vivid dreams, agitation flu vaccine Allergy (Unknown, Uncoded 03/15/23 09:31) unknown Medication List - Last Reconciled 03/19/23 by Lisa Young MD aspirin 1 tab PO DAILY atorvastatin 20 mg PO DAILY azelastine intranasal cholestyramine (with sugar) 4 gram 4 grams PO BID ketorolac 0.5% drps ophthalmic (eye) levothyroxine 100 mcg PO DAILY loratadine (Claritin) 10 mg PO DAILY sodium chloride 1,000 mg PO DAILY HPI SWV G0349 HPI Details Initiated the conversation about Advanced Directives. Advanced Directives help? patients prepare for current and future decisions about their medical treatment? and place of care. Discussed with patient that it is a process where a patients? current condition and prognosis are reviewed, their wishes for information? regarding their illness are elicited, and likely medical dilemmas are presented? and options discussed. The form can be amended as needed, reviewed yearly and? make changes as needed IPPE/AWV ? year old presents? for her ? Annual? Wellness Visit, initial visit.? Medical / Social History Reviewed? Past Medical History ?Yes? . ? [place]? of Care / Care Team list updated ?Yes . ? Surgical/Hospitalization? History ?Yes . ? Current Medications? (including OTC and supplements) ?Yes . ? Family History ?Yes? . ? Tobacco? Control form ?Yes . ? AUDIT-C (Alcohol use) form? ?Yes . ? Illicit drug use in Social? History ?Yes . ? Current diagnosis of? depression? ?No ? Appropriate PHQ2/PHQ9? completed ?Yes . ? Data entered by ?Medical? Belt Picker and reviewed by provider ? Fall Risk ? Fall? History? Have you had any falls with? injury in the past year? ?No . ? Have you had two or more? falls in the past year? ?No . ? Fall Risk Assessment: ?No? falls in the past year . ? HRA filled out by? the patient, reviewed by Provider and scanned. ? IPPE/AWV ? Balance? [place]? ?Yes . ? Tandem? walk ?Yes . ? Walk and? Turn ?Yes . ? Rise from? sit to stand ?Yes . ?Vision? Corrective? lens ?Yes ? Vision? screen ? Up-to-date, has an appointment [] for vision? screening and glaucoma screening ?Hearing? Whisper? test ?pass .? Initiated the conversation about Advanced Directives. Advanced Directives help? patients prepare for current and future decisions about their medical treatment? and place of care. Discussed with patient that it is a process where a patients? current condition and prognosis are reviewed, their wishes for information? regarding their illness are elicited, and likely medical dilemmas are presented? and options discussed. The form can be amended as needed, reviewed yearly and? make changes as needed Written? Plan?Completed. See Patient? Documents. [facility] Medical History (Updated 03/19/23 @ 10:44 by Lisa Young MD) Constipation Orthostatic hypotension Aortic stenosis (~02/04/23) Annual physical exam Cough Back pain IBS (irritable bowel syndrome) CARMEN (dyspnea on exertion) Nephrolithiasis HTN (hypertension) Hypothyroidism Hyperlipidemia Surgical History History of cataract surgery History of heart surgery H/O colonoscopy Hx of cholecystectomy History of knee replacement procedure of right knee History of total abdominal hysterectomy Family History Father No problems noted. Mother No problems noted. Social History Housing: Condominium Alcohol intake: never Patient Tobacco Use Status: Never used Tobacco e-Cigarette/Vaping Use: Never Used Second Hand Smoke Exposure: No Current occupational status: retired Cognitive needs: No Hearing needs: No Vision needs: Yes Questionnaire Medicare Wellness Checkup What is your age?: 79 or older What gender do you identify with?: female During the past 4 weeks, how much have you been bothered by emotional problems such as feeling anxious, depressed, irritable, sad or downhearted, and blue?: moderately During the past 4 weeks, has your physical & emotional health limited your social activities with family, friends, neighbors, or groups?: moderately During the past 4 weeks, how much bodily pain have you generally had?: mild pain During the past 4 weeks, was someone available to help you if you needed & wanted help?: yes, as much as I wanted During the past 4 weeks, what was the hardest physical activity you could do for at least 2 minutes?: moderate Can you get to places out of walking distance without help? (For eg., can you travel alone on buses, taxis or drive your car?): Yes Can you go shopping for groceries or clothes without someone's help?: No Can you prepare your own meals?: Yes Can you do your housework without help?: Yes Because of any health problems, do you need the help of another person with your personal care needs such as eating, bathing, dressing or getting around the house?: No Can you handle your own money without help?: Yes During the past 4 weeks, how would you rate your health in general?: good During the past 4 weeks how have things been going for you?: pretty well Are you having difficulties driving your car?: no Do you always fasten your seat belt when you are in a car?: yes, usually During past 4 weeks, have you been bothered by the following: never: Falling or dizzy when standing up, Sexual problems?, Teeth or denture problems? and Problems using the telephone? and sometimes: Trouble eating well? and Tiredness or fatigue? Have you fallen 2 or more times in the past year?: No Are you afraid of falling?: Yes Are you a smoker?: no During the past 4 weeks, how many drinks of wine, beer, or other alcoholic beverages did you have?: no alcohol at all Do you exercise for about 20 minutes 3 or more times a week?: yes, some of the time Have you been given information to help with the following?: yes: Hazards in your house that might hurt you? and no: Keeping track of your medications? How often do you have trouble taking medicines the way you have been told to take them?: I always take medicine as prescribed How confident are you that you can control & manage most of your health problems?: very confident What is your race?: White Mini Mental State Exam (MMSE) Orientation What is the (year) (season) (date) (day) (month)?: year, season, date, day and month Where are we (state) (county) (town or city) (hospital) (floor)?: state, county, town or city, hospital/clinic and floor Registration Name of 3 unrelated objects clearly and slowly, then ask patient to repeat all 3 of them. (1st repeat determines score. Make sure they can repeat all three): object 1, object 2 and object 3 Attention & Calculation (CHOOSE ONE) Spell WORLD backwards (DLROW): 5 letters Recall Ask patient to repeat the 3 items from question #3.: object 1, object 2 and object 3 Language Show patient a wristwatch & ask what it is. Repeat for pencil.: watch and pencil Ask the patient to repeat the phrase 'No ifs, ands, or buts' after you.: correct Ask the patient to 'take a piece of paper with their right hand' 'fold paper in half' 'place paper on floor': take paper in right hand, fold paper in half and place paper on floor Print the sentence 'CLOSE YOUR EYES' on a piece. If patient actually closes eyes then score.: followed written direction Give patient a blank piece of paper & ask to write a sentence. Score if it contains a noun & verb.: sentence contains subject and verb Ask patient to copy figure of intersecting pentagons exactly. Score if all 10 angles & 2 intersects are included.: all 10 angles present & 2 are intersected Score Score: 30 PHQ-9 Over the last 2 weeks, how often have you been bothered by any of the following problems? 1. Little interest or pleasure in doing things: not at all 2. Feeling down, depressed, or hopeless: not at all 3. Trouble falling or staying asleep, or sleeping too much: not at all 4. Feeling tired or having little energy: not at all 5. Poor appetite or overeating: not at all 6. Feeling bad about yourself - or that you are a failure or have let yourself or your family down: not at all 7. Trouble concentrating on things, such as reading the newspaper or watching television: not at all 8. Moving or speaking so slowly that other people could have noticed. Or the opposite - being so fidgety or restless that you have been moving around a lot more than usual: not at all 9. Thoughts that you would be better off or of hurting yourself in some way: not at all Total score: 0 Depression Screening Interpretation: Negative Depression Screening Done: Yes 12698 - PHQ-9 Billing: Yes Source: Developed by Drs. Filiberto Valero, Lindsey Roger, Liban Ko and colleagues, with an educational antonia from [employer]. Review of Systems Const All systems reviewed & are unremarkable except as noted in HPI and below Reports no additional complaints Eyes Reports no additional complaints ENT Reports no additional complaints Card Reports no additional complaints Resp Reports no additional complaints Physical Exam Vital Signs: Last Vital Signs Pulse 69 03/19/23 09:11 BP 128/80 03/19/23 09:11 Pulse Ox 97 03/19/23 09:11 Oxygen Delivery Method Room Air 03/19/23 09:11 BMI result Body Mass Index 25.1 Const General: no acute distress HEENT Head: Yes normal to inspection Neck Neck: Yes supple Resp Effort & Inspection: normal respiratory effort Auscultation: clear to auscultation bilaterally Cardio Rhythm: regular rhythm Heart sounds: S1 normal heart sound present and S2 normal heart sound present GI Inspection: Yes normal to inspection Palpation (GI): Soft to palpation Percussion: Yes normal to percussion Extrem General: Yes no clubbing, cyanosis or edema Assessment & Plan Assessment & Plan (1) Hyperglycemia: Code(s): R73.9 - Hyperglycemia, unspecified Plan: cont ADA diet, check A1C IN 1 MONTH (2) Low sodium levels: Comment: ON FLUID RESTRICTION Code(s): E87.1 - Hypo-osmolality and hyponatremia Plan: monitor BMP , (3) Aortic stenosis: Onset Date: ~02/04/23 Comment: Echo severe , 12/22, s/p TAVR 08/23, [facility] Code(s): I35.0 - Nonrheumatic aortic (valve) stenosis Plan: Follow-up with cardiology annually (4) HTN (hypertension): Comment: Orthostatic hypotension on amlodipine Code(s): I10 - Essential (primary) hypertension Plan: monitor BP, off Amlodipine (5) Hypothyroidism: Code(s): E03.9 - Hypothyroidism, unspecified Plan: cont Levothyroxine, f/u 5 months or prn Orders: Orders Lipid Panel 1 Month E03.9 - Hypothyroidism, unspecified, E87.1 - Hypo-osmolality and hyponatremia, I10 - Essential (primary) hypertension, I35.0 - Nonrheumatic aortic (valve) stenosis, R73.9 - Hyperglycemia, unspecified TSH reflex Free T4 1 Month E03.9 - Hypothyroidism, unspecified, E87.1 - Hypo-osmolality and hyponatremia, I10 - Essential (primary) hypertension, I35.0 - Nonrheumatic aortic (valve) stenosis, R73.9 - Hyperglycemia, unspecified Complete Blood Count Auto Diff 1 Month E03.9 - Hypothyroidism, unspecified, E87.1 - Hypo-osmolality and hyponatremia, I10 - Essential (primary) hypertension, I35.0 - Nonrheumatic aortic (valve) stenosis, R73.9 - Hyperglycemia, unspecified Hemoglobin A1c 1 Month D64.9 - Anemia, unspecified, R73.9 - Hyperglycemia, unspecified IRON PROFILE 1 Month D64.9 - Anemia, unspecified, R73.9 - Hyperglycemia, unspecified Comprehensive Wilcox. Panel Fast 5 Months E03.9 - Hypothyroidism, unspecified, I10 - Essential (primary) hypertension, R73.9 - Hyperglycemia, unspecified Complete Blood Count Auto Diff 5 Months E03.9 - Hypothyroidism, unspecified, I10 - Essential (primary) hypertension, R73.9 - Hyperglycemia, unspecified TSH reflex Free T4 5 Months E03.9 - Hypothyroidism, unspecified, I10 - Essential (primary) hypertension, R73.9 - Hyperglycemia, unspecified Comprehensive Wilcox. Panel Fast 1 Month E03.9 - Hypothyroidism, unspecified, E87.1 - Hypo-osmolality and hyponatremia, I10 - Essential (primary) hypertension, I35.0 - Nonrheumatic aortic (valve) stenosis, R73.9 - Hyperglycemia, unspecified Vitamin B12 and Folate 1 Month E03.9 - Hypothyroidism, unspecified, E87.1 - Hypo-osmolality and hyponatremia, I10 - Essential (primary) hypertension, I35.0 - Nonrheumatic aortic (valve) stenosis, R73.9 - Hyperglycemia, unspecified Quality Reporting (2019) Depression/Bipolar (159/160/161/177) PHQ-9: Total score: 0 Coding Level of Care Code Medicare Subsequent (G0439) Diagnoses Hyperglycemia R73.9 Low sodium levels E87.1 Aortic stenosis I35.0 HTN (hypertension) I10 Hypothyroidism E03.9 CPT Codes Advance Care Planning - Time spent: 1-15 minutes, not on file ([id number]) Advance Care Planning Advance Care Planning discussion: Exists, not on file Forms completed: Health Care Proxy Time spent: 1-15 minutes, not on file
[2023-03-19 09:11] VITALS: BP 128/80; PULSE 69; O2SAT 97; BMI 25.1
== END 2023-03-19 10:44 | disposition home or self-care (01) ==
PROVIDERS: Visit Provider Internal Medicine
DX: R73.9 Hyperglycemia, unspecified (principal); E87.1 Hypo-osmolality and hyponatremia; I35.0 Nonrheumatic aortic (valve) stenosis; I10 Essential (primary) hypertension; E03.9 Hypothyroidism, unspecified; Z00.00 Encounter for general adult medical examination without abnormal findings
CPT/HCPCS: 1124F; G0439

== ENCOUNTER 2023-04-05 14:23 | Outpatient (REF) | payer MEDICARE, OTHER, SELFPAY ==
--- NOTE | ~2023-04-05 | US_ITS ---
EXAMINATION: US RETROPERITONEAL LIMITED (RENAL ONLY) CLINICAL INFORMATION: Calculus of kidney. COMPARISON: CT abdomen and pelvis with contrast 01/16/2023. Renal ultrasound 08/04/2021. TECHNIQUE: Real-time imaging of the kidneys. FINDINGS: RIGHT KIDNEY: 10.2 x 4.5 x 5.2 cm (SAG x AP x TRV). The kidney is normal in size, contour, and echogenicity. Renal cortical thickness is normal. Mild hydronephrosis, unchanged compared to CT from 01/16/2023 but new compared to ultrasound from 08/04/2021. Multiple simple appearing cysts, for which no imaging follow-up is recommended largest measuring 3.7 cm in the lower pole. Multiple nonobstructive renal calculi measuring up to 0.8 cm in size. LEFT KIDNEY: 10.6 x 5.1 x 6.1 cm (SAG x AP x TRV). The kidney is normal in size, contour, and echogenicity. Renal cortical thickness is normal. No renal calculi or hydronephrosis. Single 3.3 x 2.5 x 3.5 cm cyst in the interpolar region, slightly increased in size from 2.7 x 2.7 x 3 cm on 08/04/2021 with a few thin peripheral incomplete septations but no associated vascularity. Nonobstructive 0.3 cm calculus in the lower pole. US/US renal BI IMPRESSION: 1. Mild right hydronephrosis, new compared to ultrasound from 08/04/2021. 2. Nonobstructive bilateral renal calculi. 3. Minimally complex left renal cyst, slightly increased in size since 08/04/2021. Attention on follow-up in future examinations is recommended.
== END 2023-04-05 14:24 | disposition home or self-care (01) ==
LOC: HO.HMGCX 14:23
PROVIDERS: PCP Internal Medicine; Visit Provider Urology
DX: N20.0 Calculus of kidney (principal)
CPT/HCPCS: 76775

== ENCOUNTER 2023-04-14 11:22 | Outpatient (AMB) | payer MEDICARE, OTHER, SELFPAY ==
--- NOTE | 2023-04-14 11:39 | A.OFFVIS_ITS ---
Intake Intake Visit Reasons: 1Y US(SET) Intake Note: Patient is Present for Follow Up Urology Medication: None Antibiotic Allergies: Penicillin Blood Thinners: Aspirin Allergies Penicillins [PCN] Allergy (Unknown, Verified 04/14/23 11:41) SWELLING baclofen Adverse Reaction (Unknown, Verified 04/14/23 11:41) vivid dreams, agitation flu vaccine Allergy (Unknown, Uncoded 04/14/23 11:41) unknown Medication List - Last Reconciled 04/14/23 by Jeff Lu MD aspirin 1 tab PO DAILY atorvastatin 20 mg PO DAILY azelastine intranasal cholestyramine (with sugar) 4 gram 4 grams PO BID ketorolac 0.5% drps ophthalmic (eye) levothyroxine 100 mcg PO DAILY loratadine (Claritin) 10 mg PO DAILY sodium chloride 1,000 mg PO DAILY HPI HPI Comments History of Present Illness Details Liya CANNON is a very pleasant female. She is a patient of Dr Rivera. She is seen for the following urologic conditions. - nephrolithiasis Recent ultrasound shows bilateral small stones with bilateral cysts No symptomatic issues Had been dealing with decreased blood pressure and the sodium levels during the summer Uses sports drinks with electrolytes Repeat imaging in 12 months Nephrolithiasis/Urolithiasis: They are here for further evaluation of nephrolithiasis. Urolithiasis was diagnosed Seen 11/11/18 at [facility] with right flank pain. The patient previously had kidney stones whose composition w 01/19 , calc ium oxalate - monohydrate 80%. Prior treatment(s) include 12/19 Right ESWL ureter 03/21 vitamin B6, 08/22 Trial urocit K - failed Urocit-K due to GI upset Prior imaging includes 11/18 , a CT (computed tomography) scan of the abdomen/pelvis (stone protocol), showing radiodense stone(s) - bilateral, right side with proximal ureter stones 5mm x - 12/19 , a renal ultrasound - small fragments on right 4-5 mm, left 4mm fragments - no stones seen in proximal ureter - 03/21 , a renal ultrasound, multiple small fragments bilateral - 09/19 , a CT (computed tomography) scan of the abdomen/pelvis (stone protocol) - bilateral stones stable. - 09/20 renal ultrasound with bilateral cysts and bilateral multiple 5 mm fragments - 08/22 renal ultrasound with bilateral cysts and bilateral multiple fragments - 02/21 KUB no definitive stones - 01/23 renal ultrasound small bilateral stones Current therapeutic plan will be to continue with imaging surveillance [facility] Medical History Constipation Orthostatic hypotension Aortic stenosis (~02/04/23) Annual physical exam Cough Back pain IBS (irritable bowel syndrome) CARMEN (dyspnea on exertion) Nephrolithiasis HTN (hypertension) Hypothyroidism Hyperlipidemia Surgical History History of cataract surgery History of heart surgery H/O colonoscopy Hx of cholecystectomy History of knee replacement procedure of right knee History of total abdominal hysterectomy Family History Father No problems noted. Mother No problems noted. [facility] Alcohol intake: never Patient Tobacco Use Status: Never used Tobacco e-Cigarette/Vaping Use: Never Used Second Hand Smoke Exposure: No Current occupational status: retired Cognitive needs: No Hearing needs: No Vision needs: Yes Review of Systems Const Denies chills and Denies fever(s) Card Reports no additional complaints and Denies syncope Resp Denies cough GI Denies abdominal pain and Denies heartburn Reports as per HPI and Denies change in libido Neuro Denies syncope Psych Denies change in libido Endo Denies change in libido Physical Exam Const General: cooperative, healthy appearing, comfortable and no acute distress Orientation/consciousness: patient oriented x3 HEENT Face and sinus: Yes normal facial exam Mouth: moist mucous membranes Neck Neck: Yes normal visual inspection, Yes full ROM and Yes trachea midline Chest Chest palpation & inspection: normal inspection of the chest Resp Effort & Inspection: normal respiratory effort, able to speak in complete sentences and no respiratory distress GI Inspection: Yes normal to inspection Back/Spine/Pelvis Cervical Spine: normal cervical lordosis Thoracic/Lumbar Spine: thoracic and lumbar spine normal to inspection Skin General skin exam: no rashes or lesions noted Neuro General: patient oriented x3, gait normal, tone normal and moves all extremities Extrem General: Yes normal to inspection and Yes capillary refill normal Assessment & Plan Assessment & Plan (1) Nephrolithiasis: Comment: 12/2018 lithrotrypsy and stent 01/2019 Dr. Lu Code(s): N20.0 - Calculus of kidney Plan Twelve month follow-up imaging Orders: Orders XR KUB 364 Days N20.0 - Calculus of kidney Patient Instructions: Imaging studies, laboratory and physical exam results were discussed and reviewed in detail. No major barriers to patient understanding were identified. An opportunity to ask questions regarding the treatment plan was provided. All questions were answered. The patient expressed understanding and agreement with the above treatment plan. The patient is aware they should contact our office by phone for worsening of their current condition or the appearance of new urologic symptoms. Compliance is encouraged with any medications and followup testing that is ordered. It is a privilege to participate in the urologic care of your patient. If you have any questions or concerns regarding treatment for the above conditions, or other urologic issues, please do not hesitate to contact me. The office telephone contact is [phone]. This note is constructed using voice recognition software. While every effort has been made to ensure accuracy corporate general manager errors may have been included. Yours sincerely, Dr Jeff Lu MD, [facility] - Urology Providers of Expert, Compassionate Care for the Genitourinary System Coding Level of Care Code Est Pt Level 4 (15895) Diagnoses Nephrolithiasis N20.0
== END 2023-04-14 12:12 | disposition home or self-care (01) ==
PROVIDERS: Visit Provider Urology
DX: N20.0 Calculus of kidney (principal)
CPT/HCPCS: 99213

== ENCOUNTER → 2023-04-14 11:22 | Outpatient (BNVA) | payer MEDICARE, OTHER, SELFPAY | PROVIDERS: Visit Provider Urology | DX: N20.0 Calculus of kidney (principal) | CPT/HCPCS: 99212 ==

== ENCOUNTER 2023-04-20 07:11 | Outpatient (REF) | payer MEDICARE, OTHER, SELFPAY ==
[2023-04-20 11:26] LABS: MANUAL DIFF FLAG NO
[2023-04-20 11:35] LABS: Basophils Percent Auto 0.6 % (0-2); Eosinophils Absolute Auto 0.2 X10*3/uL (0.0-0.4); Eosinophils Percent Auto 3.2 % (0-4); Hematocrit 35.3 % (37.0-47.0); Hemoglobin 11.8 g/dl (12.0-16.0); Imm Gran Abs Auto 0.01 X10*3/uL (0.00-0.03); Imm Gran Pct Auto 0.2 % (0.0-0.4); Lymphocytes Absolute Auto 1.5 X10*3/uL (1.2-4.9); Lymphocytes Percent Auto 28.4 % (20-40); Mean Corpuscular HGB Conc 33.4 g/dl (31.0-35.0); Mean Corpuscular Hemoglobin 27.7 pg (27.0-33.0); Mean Corpuscular Volume 82.9 fL (80.0-98.0); Mean Platelet Volume 10.6 fL (9.4-12.3); Monocytes Absolute Auto 0.5 X10*3/uL (0.1-1.2); Monocytes Percent Auto 8.9 % (2-11); Neutrophils Absolute Auto 3.2 x10*3/uL (2.0-8.3); Neutrophils Percent Auto 58.7 % (45-73); Platelet Count 227 X10*3/uL (160-400); Red Blood Count 4.26 X10*6/uL (4.20-5.50); Red Cell Distribution Width 17.7 % (11.0-16.0); White Blood Count 5.4 X10*3/uL (4.8-10.8)
[2023-04-20 11:36] LABS: Estimated Average Glucose 128 mg/dL; Hemoglobin A1c % 6.1 % (<6.0)
[2023-04-20 12:04] LABS: Alanine Aminotransferase 23 U/L (0-31); Albumin Level 3.8 g/dL (3.5-5.0); Alkaline Phosphatase 73 U/L (39-117); Anion Gap 13 (12-20); Aspartate Amino Transferase 22 U/L (5-31); Bilirubin Total 0.5 mg/dL (0.0-1.0); Blood Urea Nitrogen 17 mg/dL (9-16); Calcium 9.1 mg/dL (8.4-10.2); Carbon Dioxide 23 mmol/L (22-29); Chloride 100 mmol/L (96-108); Cholesterol 164 mg/dL (<200); Estimated Glomerular Filt Rate 58; Glucose Fasting 140 mg/dL (60-99); HDL Cholesterol 73 mg/dL (>40); Iron 39 mcg/dL (30-160); LDL Cholesterol Calculated 80 mg/dL (<100); Percent Iron Saturation 12 % (15-50); Sodium 132 mmol/L (135-145); Total Iron Binding Capacity 331 mcg/dL (228-428); Total Protein 6.7 g/dL (6.5-8.0); Triglycerides 56 mg/dL (<150); Unsaturated Iron Binding 292 ug/dL
[2023-04-20 13:30] LABS: TSH reflex Free T4 7.76 uIU/mL (0.32-4.0)
[2023-04-20 14:42] LABS: Free T4 (Free Thyroxine) 1.17 ng/dL (0.71-1.85)
[2023-04-20 15:15] LABS: Folate 8.6 ng/mL (> or = 4.0); Vitamin B12 > 2000 pg/mL (200-900)
== END 2023-04-20 07:12 | disposition home or self-care (01) ==
LOC: HO.HMGCLDS 07:11
PROVIDERS: PCP Internal Medicine; Visit Provider Internal Medicine
DX: R73.9 Hyperglycemia, unspecified (principal); E87.1 Hypo-osmolality and hyponatremia; I10 Essential (primary) hypertension; E03.9 Hypothyroidism, unspecified; D64.9 Anemia, unspecified; I35.0 Nonrheumatic aortic (valve) stenosis
CPT/HCPCS: 36415; 80053; 80061; 82607; 82746; 83036; 83540; 84439; 84443; 85025

== ENCOUNTER 2023-07-10 09:04 | Outpatient (REF) | payer MEDICARE, OTHER, SELFPAY ==
[2023-07-10 11:09] LABS: MANUAL DIFF FLAG NO
[2023-07-10 11:13] LABS: Basophils Percent Auto 0.7 % (0-2); Eosinophils Absolute Auto 0.3 X10*3/uL (0.0-0.4); Eosinophils Percent Auto 5.7 % (0-4); Hematocrit 32.4 % (37.0-47.0); Hemoglobin 10.9 g/dl (12.0-16.0); Imm Gran Abs Auto 0.01 X10*3/uL (0.00-0.03); Imm Gran Pct Auto 0.2 % (0.0-0.4); Lymphocytes Absolute Auto 1.3 X10*3/uL (1.2-4.9); Lymphocytes Percent Auto 24.4 % (20-40); Mean Corpuscular HGB Conc 33.6 g/dl (31.0-35.0); Mean Corpuscular Hemoglobin 26.5 pg (27.0-33.0); Mean Corpuscular Volume 78.8 fL (80.0-98.0); Mean Platelet Volume 10.9 fL (9.4-12.3); Monocytes Absolute Auto 0.6 X10*3/uL (0.1-1.2); Monocytes Percent Auto 10.7 % (2-11); Neutrophils Absolute Auto 3.2 x10*3/uL (2.0-8.3); Neutrophils Percent Auto 58.3 % (45-73); Platelet Count 223 X10*3/uL (160-400); Red Blood Count 4.11 X10*6/uL (4.20-5.50); Red Cell Distribution Width 16.5 % (11.0-16.0); White Blood Count 5.4 X10*3/uL (4.8-10.8)
[2023-07-10 12:34] LABS: Anion Gap 12 (12-20); Blood Urea Nitrogen 16 mg/dL (9-16); Calcium 8.9 mg/dL (8.4-10.2); Carbon Dioxide 26 mmol/L (22-29); Chloride 100 mmol/L (96-108); Estimated Glomerular Filt Rate > 60; Glucose Random 153 mg/dL (60-115); Sodium 134 mmol/L (135-145); TSH reflex Free T4 2.64 uIU/mL (0.32-4.0)
[2023-07-10 12:46] LABS: Folate 10.8 ng/mL (> or = 4.0); Vitamin B12 1710 pg/mL (200-900)
== END 2023-07-10 09:05 | disposition home or self-care (01) ==
LOC: HO.HMGCLDS 09:04
PROVIDERS: PCP Internal Medicine; Visit Provider Internal Medicine
DX: E03.9 Hypothyroidism, unspecified (principal); E87.1 Hypo-osmolality and hyponatremia; I10 Essential (primary) hypertension
CPT/HCPCS: 36415; 80048; 82607; 82746; 84443; 85025

== ENCOUNTER 2023-08-02 07:42 | Outpatient (REF) | payer MEDICARE, OTHER, SELFPAY ==
[2023-08-02 10:12] LABS: MANUAL DIFF FLAG NO
[2023-08-02 10:28] LABS: Basophils Percent Auto 0.7 % (0-2); Eosinophils Absolute Auto 0.4 X10*3/uL (0.0-0.4); Eosinophils Percent Auto 6.7 % (0-4); Hematocrit 33.1 % (37.0-47.0); Hemoglobin 11.1 g/dl (12.0-16.0); Imm Gran Abs Auto 0.01 X10*3/uL (0.00-0.03); Imm Gran Pct Auto 0.2 % (0.0-0.4); Lymphocytes Absolute Auto 2.1 X10*3/uL (1.2-4.9); Lymphocytes Percent Auto 37.7 % (20-40); Mean Corpuscular HGB Conc 33.5 g/dl (31.0-35.0); Mean Corpuscular Hemoglobin 26.4 pg (27.0-33.0); Mean Corpuscular Volume 78.8 fL (80.0-98.0); Mean Platelet Volume 11.1 fL (9.4-12.3); Monocytes Absolute Auto 0.7 X10*3/uL (0.1-1.2); Monocytes Percent Auto 12.8 % (2-11); Neutrophils Absolute Auto 2.3 x10*3/uL (2.0-8.3); Neutrophils Percent Auto 41.9 % (45-73); Platelet Count 241 X10*3/uL (160-400); Red Cell Distribution Width 18.7 % (11.0-16.0); White Blood Count 5.5 X10*3/uL (4.8-10.8)
[2023-08-02 10:38] LABS: Alanine Aminotransferase 23 U/L (0-31); Albumin Level 3.8 g/dL (3.5-5.0); Alkaline Phosphatase 71 U/L (39-117); Anion Gap 11 (12-20); Aspartate Amino Transferase 26 U/L (5-31); Bilirubin Total 0.4 mg/dL (0.0-1.0); Blood Urea Nitrogen 20 mg/dL (9-16); Calcium 9.1 mg/dL (8.4-10.2); Carbon Dioxide 27 mmol/L (22-29); Chloride 105 mmol/L (96-108); Estimated Glomerular Filt Rate 52; Glucose Fasting 100 mg/dL (60-99); Potassium 4.2 mmol/L (3.3-5.1); Sodium 139 mmol/L (135-145); Total Protein 6.8 g/dL (6.5-8.0)
[2023-08-02 10:58] LABS: TSH reflex Free T4 3.18 uIU/mL (0.32-4.0)
== END 2023-08-02 07:43 | disposition home or self-care (01) ==
LOC: HO.HMGCLDS 07:42
PROVIDERS: PCP Internal Medicine; Visit Provider Internal Medicine
DX: I10 Essential (primary) hypertension (principal); E03.9 Hypothyroidism, unspecified; R73.9 Hyperglycemia, unspecified
CPT/HCPCS: 36415; 80053; 84443; 85025

== ENCOUNTER 2023-08-04 13:49 | Outpatient (REF) | payer MEDICARE, OTHER, SELFPAY ==
[2023-08-04 16:27] LABS: Appearance Urine Cloudy; Color Urine Yellow; Glucose Urine UA Negative (Negative); Leukocyte Esterase Urine Large (3+) (Negative); Nitrite Urine Negative (Negative); PH 5.5 (5.0-9.0); UMIC TRIGGER UA YES; Urine Blood Trace (Negative); Urine Ketones Negative (Negative); Urine Protein Trace mg/dL (Neg-Trace)
[2023-08-04 16:30] LABS: Bacteria Urine None Seen (None Seen); Hyaline Casts Urine 0-2 /LPF (0-2); RBC Urine 0-2 /HPF (0-2); Squamous Epithelial Cell Urine 0-2 /HPF (0-2); WBC Urine >50 /HPF (0-5)
== END 2023-08-04 13:50 | disposition home or self-care (01) ==
LOC: HO.HMGCLDS 13:49
PROVIDERS: PCP Internal Medicine; Visit Provider Internal Medicine
DX: R30.0 Dysuria (principal)
CPT/HCPCS: 81001; 87086; 87088; 87186

== ENCOUNTER 2023-08-10 12:19 | Outpatient (AMB) | payer MEDICARE, OTHER, SELFPAY ==
[2023-08-10 12:21] VITALS: BP 136/74; PULSE 84; O2SAT 97; BMI 26.3
--- NOTE | 2023-08-10 12:21 | A.OFFPC_ITS ---
Vital Signs 08/10/23 12:21 Height 5 ft 4 in Weight 153 lb BMI 26.3 BP 136/74 Blood Pressure Location Lt brachial Position Sitting Pulse 84 Pulse Source Pulse Oximeter Pulse Oximetry (%) 97 Oxygen Delivery Method Room Air Intake Visit Reasons: 4m follow up Intake Note: Pt is here today for 4 months follow up visit. Allergies Penicillins [PCN] Allergy (Unknown, Verified 08/10/23 12:25) SWELLING baclofen Adverse Reaction (Unknown, Verified 08/10/23 12:25) vivid dreams, agitation flu vaccine Allergy (Unknown, Uncoded 08/10/23 12:25) unknown Medication List - Last Reconciled 08/10/23 by Lisa Young MD amlodipine 10 mg PO DAILY aspirin 1 tab PO DAILY atorvastatin 20 mg PO DAILY azelastine intranasal cholestyramine (with sugar) 4 gram 4 grams PO BID ferrous sulfate 325 mg PO Q OTHER DAY ketorolac 0.5% drps ophthalmic (eye) levothyroxine 100 mcg PO DAILY loratadine (Claritin) 10 mg PO DAILY meclizine 25 mg PO BID PRN nitrofurantoin monohyd/m-cryst 100 mg (Macrobid) 100 mg PO Q12H 7 days sodium chloride 1,000 mg PO DAILY Tobacco use date assessed: 08/10/23 Fall risk assessment: No Falls in past year Last assessed Fall Risk: 08/10/23 Dental Screening Dental Screen Date: 08/10/23 Did you have a dental visit in the last 12 months?: Yes Did you have a dental problem in the last 6 months where you did not have access to dental care?: No Was dental information given to patient?: Patient has dentist HPI 4m follow up HPI Details Pt presents for HTN, hyperlipid, hypothyroid, stable on meds. Patient was restarted on amlodipine because of elevated blood pressure and has been tolerating it well. She had echocardiogram done at [facility] and a Holter monitor by cardiology. Patient complains of feeling nervous. She reports chronic left trochanteric bursitis and advanced bilateral knee osteoarthritis that she has been getting cortisone injections for. She complains of chronic neck pain and stiffness and would like to restart physical therapy. [facility] Medical History (Updated 08/10/23 @ 13:21 by Lisa Young MD) Constipation Orthostatic hypotension Aortic stenosis (~02/04/23) Annual physical exam Cough Back pain IBS (irritable bowel syndrome) CARMEN (dyspnea on exertion) Nephrolithiasis HTN (hypertension) Hypothyroidism Hyperlipidemia Surgical History History of cataract surgery History of heart surgery H/O colonoscopy Hx of cholecystectomy History of knee replacement procedure of right knee History of total abdominal hysterectomy Family History Father No problems noted. Mother No problems noted. [facility] History [facility] Alcohol intake: never Patient Tobacco Use Status: Never used Tobacco e-Cigarette/Vaping Use: Never Used Second Hand Smoke Exposure: No service: No Current occupational status: retired Cognitive needs: No Hearing needs: No Vision needs: Yes Questionnaire PHQ-9 Over the last 2 weeks, how often have you been bothered by any of the following problems? 1. Little interest or pleasure in doing things: not at all 2. Feeling down, depressed, or hopeless: not at all 3. Trouble falling or staying asleep, or sleeping too much: not at all 4. Feeling tired or having little energy: not at all 5. Poor appetite or overeating: not at all 6. Feeling bad about yourself - or that you are a failure or have let yourself or your family down: not at all 7. Trouble concentrating on things, such as reading the newspaper or watching television: not at all 8. Moving or speaking so slowly that other people could have noticed. Or the opposite - being so fidgety or restless that you have been moving around a lot more than usual: not at all 9. Thoughts that you would be better off or of hurting yourself in some way: not at all Total score: 0 Depression Screening Interpretation: Negative Depression Screening Done: Yes 18544 - PHQ-9 Billing: Yes Source: Developed by Drs. Filiberto Valero, Lindsey Roger, Liban Ko and colleagues, with an educational antonia from [employer]. Thrive Questionnaire Date Thrive assessed: 08/10/23 I am a: Patient What is your living situation today?: I have a steady place to live Within the past 12 months, did the food you bought not last and you didn't have the money to get more?: Never true Within the past 12 months, did you worry whether your food would run out before you got money to buy more?: Never true Do you have trouble paying for medicines?: No Do you have trouble getting transportation to medical appointments?: No Do you have trouble paying your heating and electricity bill?: No Do you have trouble taking care of your child, family member or friend?: No Do you have trouble with day-to-day activities such as bathing, preparing meals, shopping, managing finances, etc.?: No Are you currently unemployed and looking for a job?: No Are you interested in more education?: No Please select the resources that you would like help with: None Currently or been in a relationship where the following occur: no concerns reported THRIVE Score: 0 AUDIT C Alcohol Use Questionnaire (AUDIT-C) 1. How often do you have a drink containing alcohol?: Never 3. How often do you have six or more drinks on one occasion?: Never Total Score: 0 JARED-7 AMB Questionnaire JARED-7 Date JARED - 7 assessed: 08/10/23 Feeling nervous, anxious, or on edge: 0 = Not at all Not being able to stop or control worryin = Not at all Worrying too much about different things: 0 = Not at all Trouble relaxin = Not at all Being so restless that it is hard to sit still: 0 = Not at all Becoming easily annoyed or irritable: 0 = Not at all Feeling afraid as if something awful might happen: 0 = Not at all Total JARED-7 score (0-4 normal; 5-9 mild; 10-14 moderate; 15-21 severe): 0 Source: Developed by Drs. Filiberto Valero, Lindsey Roger, Liban Ko and colleagues, with an educational antonia from [employer]. Review of Systems Const All systems reviewed & are unremarkable except as noted in HPI and below Reports no additional complaints Eyes Reports no additional complaints ENT Reports no additional complaints Card Reports no additional complaints Resp Reports no additional complaints Reports no additional complaints Musc Reports no additional complaints Physical exam (Primary Care) Vital Signs: Last Vital Signs Pulse 84 08/10/23 12:21 BP 136/74 08/10/23 12:21 Pulse Ox 97 08/10/23 12:21 Oxygen Delivery Method Room Air 08/10/23 12:21 BMI result Body Mass Index 26.3 Tobacco/Smoking Status: Tobacco use Status Tobacco use date assessed 08/10/23 08/10/23 12:29 Patient Tobacco Use Status Never used Tobacco 08/10/23 12:29 e-Cigarette/Vaping Use Never Used 08/10/23 12:21 PHQ-9: PHQ-9 Score PHQ-9: Total score 0 08/10/23 12:29 Depression Screening Interpretation: Negative Thrive Assessment: Date of Thrive Assessment Date Thrive assessed 08/10/23 08/10/23 12:29 Currently or been in a relationship where the following occur: no concerns reported Const General: no acute distress HENMT Head: Yes normal to inspection Mouth: Normal oral and palatal mucosa present Eyes General: appearance normal, both eyes and all related structures Neck Neck: Yes supple Resp Effort & Inspection: normal respiratory effort Auscultation: clear to auscultation bilaterally Cardio Rhythm: regular rhythm Heart sounds: S1 normal heart sound present and S2 normal heart sound present GI Inspection: Yes normal to inspection Palpation (GI): Soft to palpation Percussion: Yes normal to percussion Auscultation: normal bowel sounds Assessment and Plan Assessment & Plan (1) Hyperlipidemia: Code(s): E78.5 - Hyperlipidemia, unspecified Plan: Continue atorvastatin (2) Hypothyroidism: Code(s): E03.9 - Hypothyroidism, unspecified Plan: Continue Levothyroxine (3) Low sodium levels: Comment: ON FLUID RESTRICTION Code(s): E87.1 - Hypo-osmolality and hyponatremia Plan: Monitor sodium level (4) Hyperglycemia: Code(s): R73.9 - Hyperglycemia, unspecified Plan: Continue ADA diet (5) Neck pain: Code(s): M54.2 - Cervicalgia Plan: Refer for physical therapy (6) HTN (hypertension): Code(s): I10 - Essential (primary) hypertension Plan: Patient is back on 10 mg of amlodipine and has been tolerating well. 25 mg of metoprolol will be added a patient will follow-up in 2 months Orders: Orders Complete Blood Count Auto Diff 2 Months E03.9 - Hypothyroidism, unspecified, E78.5 - Hyperlipidemia, unspecified, E87.1 - Hypo-osmolality and hyponatremia, R73.9 - Hyperglycemia, unspecified TSH reflex Free T4 2 Months E03.9 - Hypothyroidism, unspecified, E78.5 - Hyperlipidemia, unspecified, E87.1 - Hypo-osmolality and hyponatremia, R73.9 - Hyperglycemia, unspecified Comprehensive Minerva. Panel Fast 2 Months E03.9 - Hypothyroidism, unspecified, E78.5 - Hyperlipidemia, unspecified, E87.1 - Hypo-osmolality and hyponatremia, R73.9 - Hyperglycemia, unspecified Vitamin B12 2 Months E03.9 - Hypothyroidism, unspecified, E78.5 - Hyperlipidemia, unspecified, E87.1 - Hypo-osmolality and hyponatremia, R73.9 - Hyperglycemia, unspecified PT Evaluation and Treatment Today M54.2 - Cervicalgia Medications: New amlodipine 10 mg PO DAILY 90 tabs 1RF metoprolol succinate ER 25 mg PO DAILY 90 tabs 1RF Discontinued sodium chloride Discontinued Reason: Doctor's Order 1,000 mg PO DAILY 30 tabs 0RF Coding Level of Care Code Est Pt Level 4 (71859) Diagnoses Hyperlipidemia E78.5 Hypothyroidism E03.9 Low sodium levels E87.1 Hyperglycemia R73.9 Neck pain M54.2 HTN (hypertension) I10
== END 2023-08-10 13:04 | disposition home or self-care (01) ==
PROVIDERS: PCP Internal Medicine; Visit Provider Internal Medicine
DX: E78.5 Hyperlipidemia, unspecified (principal); E03.9 Hypothyroidism, unspecified; E87.1 Hypo-osmolality and hyponatremia; R73.9 Hyperglycemia, unspecified; M54.2 Cervicalgia; I10 Essential (primary) hypertension
CPT/HCPCS: 99214

== ENCOUNTER 2023-08-17 12:31 | Outpatient (AMB) | payer MEDICARE, OTHER, SELFPAY ==
--- NOTE | 2023-08-17 12:35 | A.OFFVIS_ITS ---
Intake Vital Signs 08/17/23 12:44 Height 5 ft 4 in Weight 155 lb 3.287 oz BMI 26.6 BP 136/70 Blood Pressure Location Rt brachial Position Sitting Pulse 80 Pulse Source Pulse Oximeter Pulse Oximetry (%) 95 Oxygen Delivery Method Room Air Intake Visit Reasons: troc bursi with historical records administrator Intake Note: Patient last seen 03/15/[address] Aguilar, presents today for follow up. Masonry Installer Required: No Accompanied by: Self / Same As Patient Allergies Penicillins [PCN] Allergy (Unknown, Verified 08/17/23 12:44) SWELLING baclofen Adverse Reaction (Unknown, Verified 08/17/23 12:44) vivid dreams, agitation flu vaccine Allergy (Unknown, Uncoded 08/17/23 12:44) unknown HPI HPI Comments History of Present Illness Details Ms. Dang 87-year-old female returns for follow-up of her bilateral trochanteric bursitis, right total knee replacement, and left knee osteoarthritis. The lateral hips were injected last time for trochanteric bur sitis. They have done pretty well until the last month when the bilateral hip pains have returned. 03/15/2023 Dr. Aguilar The patient returns for evaluation of her bilateral trochanteric bursitis, right total knee replacement, and left knee osteoarthritis. Since her last visit she has had the right cataract operated on and that went well. She was also hospitalized briefly for urinary tract infection. There are no urinary symptoms at this point. She said she was getting orthostatic dizziness and that was helped when she was discontinued off the amlodipine. She walks with a walker at this point, mostly for concerns about falling although certainly she has knee pain particularly on the left knee with prolonged standing walking. The right knee that had knee replacement also is bothersome at times with anterior and lateral pain, usually with weight-bearing activities. She is finishing up some home physical therapy and plans to try to attend the physical therapy outpatient unit. She does have an exercise bicycle in her living room and uses it a few times a day. She finds that if she uses it regularly the left leg does not swell as much and has less pain. The lateral hips were injected last time for trochanteric bursitis. They have done pretty well until the last few weeks went lateral hip pains have returned. [facility] Medical History (Updated 04/16/24 @ 13:16 by Silvana Borrego [facility]) Constipation Orthostatic hypotension Aortic stenosis (~02/04/23) Annual physical exam Cough Back pain IBS (irritable bowel syndrome) CARMEN (dyspnea on exertion) Nephrolithiasis HTN (hypertension) Hypothyroidism Hyperlipidemia Surgical History History of cataract surgery History of heart surgery H/O colonoscopy Hx of cholecystectomy History of knee replacement procedure of right knee History of total abdominal hysterectomy Family History Father No problems noted. Mother No problems noted. Social History Housing: Condominium Alcohol intake: never Patient Tobacco Use Status: Never used Tobacco e-Cigarette/Vaping Use: Never Used Second Hand Smoke Exposure: No service: No Current occupational status: retired Cognitive needs: No Hearing needs: No Vision needs: Yes Review of Systems Const All systems reviewed & are unremarkable except as noted in HPI and below Physical Exam Vital Signs: Last Vital Signs Pulse 80 08/17/23 12:44 BP 136/70 08/17/23 12:44 Pulse Ox 95 08/17/23 12:44 Oxygen Delivery Method Room Air 08/17/23 12:44 BMI result Body Mass Index 26.6 APPEARANCE: Patient in no acute distress EYES no redness, pupils equal and reactive to light, eyelids normal EXTREMITIES: No edema, no calf tenderness, normal peripheral pulses. JOINT EXAM: Hands:.? Normal pain-free range of motion with slight bony enlargement and mild tenderness across?the PIP and the IP joints.? There is mild to moderate bony enlargement and tenderness at the base of the left thumb and mild bony enlargement without tenderness at the base of the right thumb.? No soft tissue swelling, increased warmth or erythema.? No thenar atrophy or sensory loss. Wrists:.? Normal pain-free range of motion without tenderness, swelling, increased warmth or erythema. Elbows:. Normal pain-free range of motion without tenderness, swelling, increased warmth or erythema. Shoulders:.?? Full range of motion with mild discomfort at the extremes of motion.? Slight anterior tenderness but no adenopathy, weakness, swelling, increased warmth or erythema. Hips:.? Left: Full range of motion with mild lateral pains at the extremes of external rotation in abduction.? Right: Normal pain-free range of motion without any groin pain with motion. Hip bursa:.? Left greater than right trochanteric tenderness. Knees:.??Right:? Mild pain with extremes of full extension but range of motion seems intact.? There is some minimal tenderness over the patellar tendon and the lateral joint margin without swelling or redness.? There is no fluid, redness or warmth notable around the knee.? The anterior scar seems well healed.? Left:? Mild pain at full extension. She has mild patellofemoral crepitus and mild medial compartment tenderness without effusion, soft tissue swelling, increased warmth or erythema.? Ankles:? Normal pain-free range of motion without tenderness, swelling, increased warmth or erythema. Office Procedures Joint Injection/Drain Joint Injection/Drain Primary Site: other (Right Trochanteric Bursitis) Secondary Site: other (Left Trochanteric Bursitis) Prep: site was prepped using aseptic technique Injected: 40 mg of, Kenalog and 1% plain lidocaine Approach Used: posterolateral Procedure: The patient tolerated the procedure well Coding 03708 - Glenohumeral/Tronchanteric Bursa/Intraarticular Procedure code (CPT) selection complete Assessment & Plan Assessment & Plan (1) History of knee replacement procedure of right knee: Code(s): Z96.651 - Presence of right artificial knee joint (2) Osteoarthritis of left knee: Code(s): M17.12 - Unilateral primary osteoarthritis, left knee Qualifiers: Osteoarthritis type: primary Qualified Code(s): M17.12 - Unilateral primary osteoarthritis, left knee (3) Trochanteric bursitis of both hips: Code(s): M70.61 - Trochanteric bursitis, right hip; M70.62 - Trochanteric bursitis, left hip Plan #Trochanteric Bursitis/Knee OA: She has recurrence of the lateral hip pain consistent with trochanteric bursitis. She wants another set of trochanteric injections today and that seems reasonable. We would be aiming to keep her functional and continue with her physical therapy exercises both at home and in the physical therapy as an outpatient if she can make it there. With the patient's consent, the left lateral hip area was prepped with for Chloraprep and alcohol. Under a topical ethyl chloride spray the tender area over the trochanteric region was injected with 40 mg of Kenalog and 1 cc of 1% lidocaine. The patient tolerated the procedure with no adverse effects. With the patient's consent, the right lateral hip area was prepped with for Chloraprep and alcohol. Under a topical ethyl chloride spray the tender area over the trochanteric region was injected with 40 mg of Kenalog and 1 cc of 1% lidocaine. The patient tolerated the procedure with no adverse effects. She will rest the areas for a few days. We will schedule a return visit in about 5 months. Orders: Orders AMB Joint Injection/Aspiration Today M70.61 - Trochanteric bursitis, right hip, M70.62 - Trochanteric bursitis, left hip Coding Level of Care Code Est Pt Level 3 (00561) Diagnoses History of knee replacement procedure of right knee Z96.651 Primary osteoarthritis of left knee M17.12 Osteoarthritis type: primary Trochanteric bursitis of both hips M70.61; M70.62 CPT Codes Coding - Joint 7: 20527 - Glenohumeral/Tronchanteric Bursa/Intraarticular ([id number])
[2023-08-17 12:44] VITALS: BP 136/70; PULSE 80; O2SAT 95; BMI 26.6
== END 2023-08-17 13:19 | disposition home or self-care (01) ==
PROVIDERS: PCP Internal Medicine; Visit Provider Nurse Practitioner Family
DX: M70.61 Trochanteric bursitis, right hip (principal); M70.62 Trochanteric bursitis, left hip; M17.12 Unilateral primary osteoarthritis, left knee; Z96.651 Presence of right artificial knee joint
CPT/HCPCS: 20610; 99213

== ENCOUNTER → 2023-08-17 12:31 | Outpatient (BNVA) | payer MEDICARE, OTHER, SELFPAY | PROVIDERS: PCP Internal Medicine; Visit Provider Nurse Practitioner Family | DX: M70.61 Trochanteric bursitis, right hip (principal); M70.62 Trochanteric bursitis, left hip; M17.12 Unilateral primary osteoarthritis, left knee; Z96.651 Presence of right artificial knee joint | CPT/HCPCS: 20610; 99212 ==

== ENCOUNTER 2023-09-29 07:36 | Outpatient (REF) | payer MEDICARE, OTHER, SELFPAY ==
[2023-09-29 10:42] LABS: MANUAL DIFF FLAG NO
[2023-09-29 10:48] LABS: Basophils Percent Auto 0.6 % (0-2); Eosinophils Absolute Auto 0.2 X10*3/uL (0.0-0.4); Eosinophils Percent Auto 2.8 % (0-4); Hematocrit 36.7 % (37.0-47.0); Hemoglobin 12.4 g/dl (12.0-16.0); Imm Gran Abs Auto 0.01 X10*3/uL (0.00-0.03); Imm Gran Pct Auto 0.2 % (0.0-0.4); Lymphocytes Absolute Auto 1.7 X10*3/uL (1.2-4.9); Lymphocytes Percent Auto 31.5 % (20-40); Mean Corpuscular HGB Conc 33.8 g/dl (31.0-35.0); Mean Corpuscular Hemoglobin 27.9 pg (27.0-33.0); Mean Corpuscular Volume 82.7 fL (80.0-98.0); Mean Platelet Volume 9.5 fL (9.4-12.3); Monocytes Absolute Auto 0.4 X10*3/uL (0.1-1.2); Monocytes Percent Auto 8.1 % (2-11); Neutrophils Percent Auto 56.8 % (45-73); Platelet Count 222 X10*3/uL (160-400); Red Blood Count 4.44 X10*6/uL (4.20-5.50); Red Cell Distribution Width 19.2 % (11.0-16.0); White Blood Count 5.3 X10*3/uL (4.8-10.8)
[2023-09-29 11:19] LABS: Alanine Aminotransferase 31 U/L (0-31); Albumin Level 3.9 g/dL (3.5-5.0); Alkaline Phosphatase 73 U/L (39-117); Anion Gap 11 (12-20); Aspartate Amino Transferase 25 U/L (5-31); Bilirubin Total 0.4 mg/dL (0.0-1.0); Blood Urea Nitrogen 15 mg/dL (9-16); Calcium 8.8 mg/dL (8.4-10.2); Carbon Dioxide 27 mmol/L (22-29); Chloride 98 mmol/L (96-108); Estimated Glomerular Filt Rate 54; Glucose Fasting 119 mg/dL (60-99); Potassium 4.3 mmol/L (3.3-5.1); Sodium 132 mmol/L (135-145); Total Protein 6.9 g/dL (6.5-8.0)
[2023-09-29 11:33] LABS: Vitamin B12 545 pg/mL (200-900)
[2023-09-29 11:37] LABS: TSH reflex Free T4 6.12 uIU/mL (0.32-4.0)
[2023-09-29 12:20] LABS: Free T4 (Free Thyroxine) 1.18 ng/dL (0.71-1.85)
== END 2023-09-29 07:37 | disposition home or self-care (01) ==
LOC: HO.HMGCLDS 07:36
PROVIDERS: PCP Internal Medicine; Visit Provider Internal Medicine
DX: R73.9 Hyperglycemia, unspecified (principal); E87.1 Hypo-osmolality and hyponatremia; E78.5 Hyperlipidemia, unspecified; E03.9 Hypothyroidism, unspecified
CPT/HCPCS: 36415; 80053; 82607; 84439; 84443; 85025

== ENCOUNTER 2023-11-23 13:43 | Outpatient (AMB) | payer MEDICARE, OTHER, SELFPAY ==
[2023-11-23 13:46] VITALS: BP 120/66; PULSE 82; O2SAT 97; BMI 26.6
--- NOTE | 2023-11-23 13:46 | A.OFFPC_ITS ---
Vital Signs 11/23/23 13:46 Height 5 ft 4 in Weight 155 lb BMI 26.6 BP 120/66 Blood Pressure Location Rt brachial Position Sitting Pulse 82 Pulse Source Pulse Oximeter Pulse Oximetry (%) 97 Oxygen Delivery Method Room Air Intake Visit Reasons: Follow up Intake Note: Pt is here today for a follow up visit. Allergies Penicillins [PCN] Allergy (Unknown, Verified 11/23/23 13:46) SWELLING baclofen Adverse Reaction (Unknown, Verified 08/17/23 12:44) vivid dreams, agitation flu vaccine Allergy (Unknown, Uncoded 11/23/23 13:46) unknown Medication List - Last Reconciled 11/23/23 by Lisa Young MD amlodipine 10 mg PO DAILY aspirin 1 tab PO DAILY atorvastatin 20 mg PO DAILY azelastine 1 - 2 sprays intranasal BID cholestyramine (with sugar) 4 gram 4 grams PO BID ferrous sulfate 325 mg PO Q OTHER DAY ketorolac 0.5% drps ophthalmic (eye) levothyroxine 100 mcg PO DAILY loratadine (Claritin) 10 mg PO DAILY meclizine 25 mg PO BID PRN metoprolol succinate ER 25 mg PO DAILY Tobacco use date assessed: 11/23/23 Dental Screening Dental Screen Date: 08/10/23 HPI Follow up HPI Details Pt presents for HTN, HYPOTHYROID, stable on meds. [facility] Medical History Constipation Orthostatic hypotension Aortic stenosis (~02/04/23) Annual physical exam Cough Back pain IBS (irritable bowel syndrome) CARMEN (dyspnea on exertion) Nephrolithiasis HTN (hypertension) Hypothyroidism Hyperlipidemia Surgical History History of cataract surgery History of heart surgery H/O colonoscopy Hx of cholecystectomy History of knee replacement procedure of right knee History of total abdominal hysterectomy Family History Father No problems noted. Mother No problems noted. Social History Housing: Condominium Alcohol intake: never Patient Tobacco Use Status: Never used Tobacco e-Cigarette/Vaping Use: Never Used Second Hand Smoke Exposure: No service: No Current occupational status: retired Cognitive needs: No Hearing needs: No Vision needs: Yes Questionnaire PHQ-9 Over the last 2 weeks, how often have you been bothered by any of the following problems? 1. Little interest or pleasure in doing things: not at all 2. Feeling down, depressed, or hopeless: not at all 3. Trouble falling or staying asleep, or sleeping too much: not at all 4. Feeling tired or having little energy: several days 5. Poor appetite or overeating: not at all 6. Feeling bad about yourself - or that you are a failure or have let yourself or your family down: not at all 7. Trouble concentrating on things, such as reading the newspaper or watching television: not at all 8. Moving or speaking so slowly that other people could have noticed. Or the opposite - being so fidgety or restless that you have been moving around a lot more than usual: not at all 9. Thoughts that you would be better off or of hurting yourself in some way: not at all Total score: 1 Depression Screening Interpretation: Negative Depression Screening Done: Yes Source: Developed by Drs. Filiberto Valero, Lindsey Roger, Liban Ko and colleagues, with an educational antonia from [employer]. Thrive Questionnaire Date Thrive assessed: 11/23/23 I am a: Patient What is your living situation today?: I have a steady place to live Within the past 12 months, did the food you bought not last and you didn't have the money to get more?: Never true Within the past 12 months, did you worry whether your food would run out before you got money to buy more?: I choose not to answer this question Do you have trouble paying for medicines?: No Do you have trouble getting transportation to medical appointments?: I choose not to answer this question Do you have trouble paying your heating and electricity bill?: I choose not to answer this question Do you have trouble taking care of your child, family member or friend?: I choose not to answer this question THRIVE Score: 0 AUDIT C Alcohol Use Questionnaire (AUDIT-C) 1. How often do you have a drink containing alcohol?: Never 3. How often do you have six or more drinks on one occasion?: Never Total Score: 0 JARED-7 AMB Questionnaire JARED-7 Date JARED - 7 assessed: 08/10/23 Source: Developed by DrsJarrod Valero, Lindsey Roger, Liban Ko and colleagues, with an educational antonia from [employer]. Review of Systems Const All systems reviewed & are unremarkable except as noted in HPI and below Eyes Reports no additional complaints ENT Reports no additional complaints Card Reports no additional complaints Resp Reports no additional complaints GI Reports no additional complaints Reports no additional complaints Physical exam (Primary Care) Vital Signs: Last Vital Signs Pulse 82 11/23/23 13:46 BP 120/66 11/23/23 13:46 Pulse Ox 97 11/23/23 13:46 Oxygen Delivery Method Room Air 11/23/23 13:46 BMI result Body Mass Index 26.6 Tobacco/Smoking Status: Tobacco use Status Tobacco use date assessed 11/23/23 11/23/23 13:52 Patient Tobacco Use Status Never used Tobacco 11/23/23 13:52 e-Cigarette/Vaping Use Never Used 11/23/23 13:52 PHQ-9: PHQ-9 Score PHQ-9: Total score 1 11/23/23 13:52 Depression Screening Interpretation: Negative Thrive Assessment: Date of Thrive Assessment Date Thrive assessed 11/23/23 11/23/23 13:52 Const General: no acute distress HENMT Head: Yes normal to inspection Face and sinus: Yes normal facial exam Eyes General: appearance normal, both eyes and all related structures Neck Neck: Yes supple Resp Effort & Inspection: normal respiratory effort Auscultation: clear to auscultation bilaterally Cardio Rhythm: regular rhythm Heart sounds: S1 normal heart sound present and S2 normal heart sound present GI Inspection: Yes normal to inspection Palpation (GI): Soft to palpation Percussion: Yes normal to percussion Auscultation: normal bowel sounds Assessment and Plan Assessment & Plan (1) Hyperlipidemia: Code(s): E78.5 - Hyperlipidemia, unspecified Plan: cont Liptor (2) Hypothyroidism: Code(s): E03.9 - Hypothyroidism, unspecified Plan: pt reports compliance with Levothryoxine, check TSH if elevated levothyroxine will be increased (3) HTN (hypertension): Code(s): I10 - Essential (primary) hypertension Plan: cont meds (4) Anemia: Comment: Iron causes constipation Code(s): D64.9 - Anemia, unspecified Plan: Check CBC and iron count Orders: Orders TSH reflex Free T4 Today D64.9 - Anemia, unspecified, E03.9 - Hypothyroidism, unspecified, E78.5 - Hyperlipidemia, unspecified, I10 - Essential (primary) hypertension Complete Blood Count Auto Diff Today D64.9 - Anemia, unspecified, E03.9 - Hypothyroidism, unspecified, E78.5 - Hyperlipidemia, unspecified, I10 - Essential (primary) hypertension IRON PROFILE Today D64.9 - Anemia, unspecified, E03.9 - Hypothyroidism, unspecified, E78.5 - Hyperlipidemia, unspecified, I10 - Essential (primary) hypertension Comprehensive Met. Panel Today D64.9 - Anemia, unspecified, E03.9 - Hypothy roidism, unspecified, E78.5 - Hyperlipidemia, unspecified, I10 - Essential (primary) hypertension Medications: Refilled azelastine 1 - 2 sprays intranasal BID 30 mL 5RF Coding Level of Care Code Est Pt Level 4 (44794) Diagnoses Hyperlipidemia E78.5 Hypothyroidism E03.9 HTN (hypertension) I10 Anemia D64.9
== END 2023-11-23 14:24 | disposition home or self-care (01) ==
PROVIDERS: PCP Internal Medicine; Visit Provider Internal Medicine
DX: E78.5 Hyperlipidemia, unspecified (principal); E03.9 Hypothyroidism, unspecified; I10 Essential (primary) hypertension; D64.9 Anemia, unspecified
CPT/HCPCS: 99214

== ENCOUNTER 2023-11-24 10:16 | Outpatient (REF) | payer MEDICARE, OTHER, SELFPAY ==
[2023-11-24 13:21] LABS: MANUAL DIFF FLAG NO
[2023-11-24 13:29] LABS: Basophils Absolute Auto 0.1 X10*3/uL (0.0-0.2); Basophils Percent Auto 0.9 % (0-2); Eosinophils Absolute Auto 0.2 X10*3/uL (0.0-0.4); Eosinophils Percent Auto 2.6 % (0-4); Hematocrit 36.8 % (37.0-47.0); Hemoglobin 12.2 g/dl (12.0-16.0); Imm Gran Abs Auto 0.01 X10*3/uL (0.00-0.03); Imm Gran Pct Auto 0.2 % (0.0-0.4); Lymphocytes Absolute Auto 1.7 X10*3/uL (1.2-4.9); Lymphocytes Percent Auto 26.9 % (20-40); Mean Corpuscular HGB Conc 33.2 g/dl (31.0-35.0); Mean Corpuscular Hemoglobin 28.2 pg (27.0-33.0); Mean Corpuscular Volume 85.2 fL (80.0-98.0); Mean Platelet Volume 10.1 fL (9.4-12.3); Monocytes Absolute Auto 0.5 X10*3/uL (0.1-1.2); Monocytes Percent Auto 8.1 % (2-11); Neutrophils Percent Auto 61.3 % (45-73); Platelet Count 233 X10*3/uL (160-400); Red Blood Count 4.32 X10*6/uL (4.20-5.50); Red Cell Distribution Width 15.9 % (11.0-16.0); White Blood Count 6.4 X10*3/uL (4.8-10.8)
[2023-11-24 13:57] LABS: Alanine Aminotransferase 24 U/L (0-31); Alkaline Phosphatase 72 U/L (39-117); Anion Gap 13 (12-20); Aspartate Amino Transferase 24 U/L (5-31); Bilirubin Total 0.4 mg/dL (0.0-1.0); Blood Urea Nitrogen 15 mg/dL (9-16); Calcium 9.4 mg/dL (8.4-10.2); Carbon Dioxide 25 mmol/L (22-29); Chloride 99 mmol/L (96-108); Estimated Glomerular Filt Rate 45; Glucose Random 158 mg/dL (60-115); Iron 78 mcg/dL (30-160); Percent Iron Saturation 25 % (15-50); Potassium 3.7 mmol/L (3.3-5.1); Sodium 133 mmol/L (135-145); Total Iron Binding Capacity 318 mcg/dL (228-428); Unsaturated Iron Binding 240 ug/dL
[2023-11-24 14:15] LABS: TSH reflex Free T4 4.92 uIU/mL (0.32-4.0)
[2023-11-24 14:50] LABS: Free T4 (Free Thyroxine) 1.07 ng/dL (0.71-1.85)
== END 2023-11-24 10:17 | disposition home or self-care (01) ==
LOC: HO.HMGCLDS 10:16
PROVIDERS: PCP Internal Medicine; Visit Provider Internal Medicine
DX: E78.5 Hyperlipidemia, unspecified (principal); E03.9 Hypothyroidism, unspecified; I10 Essential (primary) hypertension; D64.9 Anemia, unspecified
CPT/HCPCS: 36415; 80053; 83540; 84439; 84443; 85025

== ENCOUNTER 2024-01-18 10:40 | Outpatient (AMB) | payer MEDICARE, OTHER, SELFPAY ==
--- NOTE | 2024-01-18 10:52 | A.OFFVIS_ITS ---
Vital Signs 01/18/24 10:58 Height 5 ft 4 in Weight 162 lb 7.691 oz BMI 27.9 BP 120/68 Blood Pressure Location Lt brachial Position Sitting Pulse 83 Pulse Source Pulse Oximeter Pulse Oximetry (%) 91 L Oxygen Delivery Method Room Air Intake Visit Reasons: Bilateral Trochanteric Bursitis/per Silvana porras/ Intake Note: Patient presents for bilateral Trochanteric Bursitis. Allergies Penicillins [PCN] Allergy (Unknown, Verified 01/18/24 10:56) SWELLING baclofen Adverse Reaction (Unknown, Verified 01/18/24 10:56) vivid dreams, agitation flu vaccine Allergy (Unknown, Uncoded 11/23/23 13:46) unknown Medication List - Last Reconciled 01/18/24 by Adali Arce MD amlodipine 10 mg PO DAILY aspirin 1 tab PO DAILY atorvastatin 20 mg PO DAILY azelastine 1 - 2 sprays intranasal BID cholestyramine (with sugar) 4 gram 4 grams PO BID ferrous sulfate 325 mg PO Q OTHER DAY ketorolac 0.5% drps ophthalmic (eye) levothyroxine 112 mcg PO DAILY loratadine (Claritin) 10 mg PO DAILY meclizine 25 mg PO BID PRN HPI Comments Details: This is an 88-year-old female with generalized osteoarthritis and bilateral trochanteric bursitis who returns for follow-up. She used to follow-up with Dr. Aguilar for many years. Used to have bilateral trochanteric bursitis injections once or twice a year. Most recent injection was done by Silvana Martinez about 6 months ago. Per patient it provided at 5 months relief. She states that the pain started to come back. She exercises on her stationary bike at home and feels that has helped her. She is requesting bilateral trochanteric bursitis cortisone injections today. She states that she has never had any side effects related to such injections except for some flushing. [facility] Medical History Constipation Orthostatic hypotension Aortic stenosis (~02/04/23) Annual physical exam Cough Back pain IBS (irritable bowel syndrome) CARMEN (dyspnea on exertion) Nephrolithiasis HTN (hypertension) Hypothyroidism Hyperlipidemia Surgical History History of cataract surgery History of heart surgery H/O colonoscopy Hx of cholecystectomy History of knee replacement procedure of right knee History of total abdominal hysterectomy Family History Father No problems noted. Mother No problems noted. Social History Housing: Condominium Alcohol intake: never Patient Tobacco Use Status: Never used Tobacco e-Cigarette/Vaping Use: Never Used Second Hand Smoke Exposure: No service: No Current occupational status: retired Cognitive needs: No Hearing needs: No Vision needs: Yes Review of Systems Musc Reports arthralgias Physical Exam Vital Signs: Last Vital Signs Pulse 83 01/18/24 10:58 BP 120/68 01/18/24 10:58 Pulse Ox 91 L 01/18/24 10:58 Oxygen Delivery Method Room Air 01/18/24 10:58 BMI result Body Mass Index 27.9 Const General: cooperative, healthy appearing and comfortable Nutritional Appearance: overweight Orientation/consciousness: patient oriented x3 Limitations: ambulation with walker HEENT Head: Yes normocephalic and Yes atraumatic Resp Effort & Inspection: normal respiratory effort and able to speak in complete sentences Neuro General: patient oriented x3 Extrem Other: Significant osteoarthritic changes of both hands but no active synovitis Significant kyphosis Bilateral trochanteric bursa area tenderness Office Procedures Joint Injection/Aspiration Joint Injection/Aspiration Details: Right hip bursa Left hip bursa Prep: site was prepped using sterile technique and ethochloride spray was applied Injected: 40 mg of, Kenalog, with 1 mL of, 1% plain lidocaine and other Approach Used: other Procedure: The patient tolerated the procedure well Coding Details: With the patient's consent, the left lateral hip area was prepped with Chloraprep and alcohol. Under a topical ethyl chloride spray the tender area over the trochanteric region was injected with 40 mg of Kenalog and 1 cc of 1% lidocaine. Then, the right lateral hip area was prepped with Chloraprep and alcohol. Under a topical ethyl chloride spray the tender area over the trochanteric region was injected with 40 mg of Kenalog and 1 cc of 1% lidocaine. The patient tolerated the procedure with no adverse effects The patient tolerated both procedures well with no apparent acute adverse events 69152 - Glenohumeral/Tronchanteric Bursa/Intraarticular (X 2) Procedure code (CPT) selection complete Assessment & Plan Assessment & Plan (1) Trochanteric bursitis of both hips: Code(s): M70.61 - Trochanteric bursitis, right hip; M70.62 - Trochanteric bursitis, left hip Category: Medical Plan: This is an 88-year-old female with generalized osteoarthritis and bilateral trochanteric bursitis who presents for follow-up. She used to follow-up regularly with Dr. Aguilar for many years. She would have bilateral trochanteric bursitis injections, they would usually last her 4-6 months. Last injection done by Silvana Martinez lasted about 5 months. Today patient is requesting repeat injections. With patient's consent, bilateral trochanteric bursae were injected with Kenalog. Follow-up in 5-6 months Plan I spent 20 minutes reviewing patient's chart, evaluating patient, counseling patient and documenting in the chart Orders: Orders AMB Joint Injection/Aspiration Today M70.61 - Trochanteric bursitis, right hip, M70.62 - Trochanteric bursitis, left hip Coding Level of Care Code Est Pt Level 3 (20366) Diagnoses Trochanteric bursitis of both hips M70.61; M70.62 CPT Codes Coding - Joint 7: 81822 - Glenohumeral/Tronchanteric Bursa/Intraarticular ([id number])
[2024-01-18 10:58] VITALS: BP 120/68; PULSE 83; O2SAT 91; BMI 27.9
== END 2024-01-18 11:37 | disposition home or self-care (01) ==
PROVIDERS: PCP Internal Medicine; Visit Provider Student in an Organized Health Care Education/Training Program
DX: M70.61 Trochanteric bursitis, right hip (principal); M70.62 Trochanteric bursitis, left hip
CPT/HCPCS: 20610; 99213

== ENCOUNTER → 2024-01-18 10:40 | Outpatient (BNVA) | payer MEDICARE, OTHER, SELFPAY | PROVIDERS: PCP Internal Medicine; Visit Provider Student in an Organized Health Care Education/Training Program | DX: M70.61 Trochanteric bursitis, right hip (principal); M70.62 Trochanteric bursitis, left hip | CPT/HCPCS: 20610; 99212 ==

== ENCOUNTER 2024-02-08 09:26 | Outpatient (REF) | payer MEDICARE, OTHER, SELFPAY ==
[2024-02-08 14:08] LABS: TSH reflex Free T4 1.14 uIU/mL (0.32-4.0)
== END 2024-02-08 09:27 | disposition home or self-care (01) ==
LOC: HO.HMGCLDS 09:26
PROVIDERS: PCP Internal Medicine; Visit Provider Internal Medicine
DX: E03.9 Hypothyroidism, unspecified (principal)
CPT/HCPCS: 36415; 84443

== ENCOUNTER 2024-04-04 11:25 | Outpatient (REF) | payer MEDICARE, OTHER, SELFPAY | END 2024-04-04 11:26 | disposition home or self-care (01) | LOC: HO.XRAY 11:25 | PROVIDERS: PCP Internal Medicine; Visit Provider Urology | DX: N20.0 Calculus of kidney (principal) | CPT/HCPCS: 74018 ==

== ENCOUNTER 2024-04-12 10:58 | Outpatient (AMB) | payer MEDICARE, OTHER, SELFPAY ==
--- NOTE | 2024-04-12 11:02 | A.OFFVIS_ITS ---
Intake Visit Reasons: 1y/KUB Intake Note: Patient presents today for follow up on: nephrolithiasis and KUB x-ray results Imaging completed: 04/04/24 Urology Medication: None Antibiotic Allergies: Penicillin Blood Thinners: Aspirin Barrel Drum Cutter Required: No Accompanied by: Self / Same As Patient Allergies Penicillins [PCN] Allergy (Unknown, Verified 04/12/24 12:32) SWELLING baclofen Adverse Reaction (Unknown, Verified 04/12/24 12:32) vivid dreams, agitation flu vaccine Allergy (Unknown, Uncoded 04/12/24 12:32) unknown Medication List - Last Reconciled 04/12/24 by HARSHIL Bills amlodipine 10 mg PO DAILY aspirin 1 tab PO DAILY atorvastatin 20 mg PO DAILY azelastine 1 - 2 sprays intranasal BID cholestyramine (with sugar) 4 gram 4 grams PO BID ferrous sulfate 325 mg PO Q OTHER DAY ketorolac 0.5% drmary ann ophthalmic (eye) levothyroxine 112 mcg PO DAILY loratadine (Claritin) 10 mg PO DAILY meclizine 25 mg PO BID PRN HPI Comments Details: Liya is a very pleasant 88-year-old female patient of Dr Rivera. She has a past medical history of constipation, orthostatic hypotension, aortic stenosis, back pain, IBS, nephrolithiasis, hypertension, hypothyroidism, and hyperlipidemia. She presents to the office today for follow-up of her nephroli thiasis. In discussion with the patient today she denies any bothersome urinary issues or concerns since her last office visit here approximately [address] Lu. Recent KUB results reviewed with the patient today...... When asked she reports compliance with vitamin B6 daily. She also discusses finding it difficult to consume water however she does attempt to do so. When asked she denies urinary urgency, urinary frequency, incontinence, nocturia, hematuria, dysuria, foul smelling urine, changes to urinary stream, flank pain, fever, and or chills. She is happy with her current voiding parameters. We discussed continuation of surveillance monitoring. In office urinalysis results reviewed with the patient today. She otherwise offers no other issues or concerns at this time Nephrolithiasis/Urolithiasis: They are here for further evaluation of nephrolithiasis. Urolithiasis was diagnosed Seen 11/11/[address] [facility] with right flank pain. The patient previously had kidney stones whose composition w 01/19 , calcium oxalate - monohydrate 80%. Prior treatment(s) include 12/19 Right ESWL ureter 03/21 vitamin B6, 08/22 Trial urocit K - failed Urocit-K due to GI upset Prior imaging includes 11/18 , a CT (computed tomography) scan of the abdomen/pelvis (stone protocol), showing radiodense stone(s) - bilateral, right side with proximal ureter stones 5mm x - 12/19 , a renal ultrasound - small fragments on right 4-5 mm, left 4mm fragments - no stones seen in proximal ureter - 03/21 , a renal ultrasound, multiple small fragments bilateral - 09/19 , a CT (computed tomography) scan of the abdomen/pelvis (stone protocol) - bilateral stones stable. - 09/20 renal ultrasound with bilateral cysts and bilateral multiple 5 mm fragments - 08/22 renal ultrasound with bilateral cysts and bilateral multiple fragments - 02/21 KUB no definitive stones - 01/23 renal ultrasound small bilateral stones Current therapeutic plan will be to continue with imaging surveillance [facility] Medical History Constipation Orthostatic hypotension Aortic stenosis (~02/04/23) Annual physical exam Cough Back pain IBS (irritable bowel syndrome) CARMEN (dyspnea on exertion) Nephrolithiasis HTN (hypertension) Hypothyroidism Hyperlipidemia Surgical History History of cataract surgery History of heart surgery H/O colonoscopy Hx of cholecystectomy History of knee replacement procedure of right knee History of total abdominal hysterectomy Family History Father No problems noted. Mother No problems noted. Social History Housing: Condominium Alcohol intake: never Patient Tobacco Use Status: Never used Tobacco e-Cigarette/Vaping Use: Never Used Second Hand Smoke Exposure: No service: No Current occupational status: retired Cognitive needs: No Hearing needs: No Vision needs: Yes Review of Systems Const All systems reviewed & are unremarkable except as noted in HPI and below Physical Exam Const General: cooperative, healthy appearing, comfortable, no acute distress, well developed, alert and awake Orientation/consciousness: patient oriented x3 Limitations: ambulation with walker HEENT Head: Yes normal to inspection, Yes normocephalic and Yes atraumatic Ears: hearing grossly normal bilaterally Eyes General: appearance normal, both eyes and all related structures Neck Neck: Yes normal visual inspection and Yes trachea midline Chest Chest palpation & inspection: normal inspection of the chest Resp Effort & Inspection: normal respiratory effort and able to speak in complete sentences Cardio Rate: regular rate GI Inspection: Yes normal to inspection General: Yes no CVA tenderness Back/Spine/Pelvis Back: no CVA tenderness Skin General skin exam: no rashes or lesions noted Neuro General: patient oriented x3 Extrem General: Yes normal to inspection Psych Appearance: grossly normal and well kempt Mental Status: mental status grossly normal Speech and movement: Normal speech and movement present and Clear speech present Affect: normal affect Attitude: cooperative Thought process: Normal thought process present Thought content: Normal thought content present Insight: Fair insight present (Psych) Judgement: Fair judgement present (Psych) Results AMB Urinalysis, Automated UA Leukoctes 125 Radha/uL Last Edit by [facility] on 04/12/24 11:31 UA Nitrite Last Edit by [employer] on 04/12/24 11:31 UA Urobilinogen 0.2 mg/dL Last Edit by [facility] on 04/12/24 11:31 UA Protein 30 mg/dL Last Edit by [facility] on 04/12/24 11:31 UA pH 6.0 Last Edit by [facility] on 04/12/24 11:31 UA Blood 0 Perry/uL Last Edit by [facility] on 04/12/24 11:31 UA Specific [place] 1.015 Last Edit by [facility] on 04/12/24 11:31 UA Ketone Negative Last Edit by [facility] on 04/12/24 11:31 UA Bilirubin 0 mg/dL Last Edit by Jenn Rocha on 04/12/24 11:31 UA Glucose 0 mg/dL Last Edit by Jenn Rocha on 04/12/24 11:31 Results Reviewed Results Reviewed: Laboratory Last Values Urine pH (Auto) 6.0 04/12/24 11:26 Specific [place] (Auto) 1.015 04/12/24 11:26 Urine Protein (Auto) 30 mg/dL 04/12/24 11:26 Glucose (UA)(Auto) 0 mg/dL 04/12/24 11:26 Urine Ketones (Auto) Negative 04/12/24 11:26 Urine Blood (Auto) 0 Perry/uL 04/12/24 11:26 Urine Bilirubin (Auto) 0 mg/dL 04/12/24 11:26 Urine Urobilinogen (Auto) 0.2 mg/dL 04/12/24 11:26 Leukocyte Esterase (Auto) 125 Radha/uL 04/12/24 11:26 Assessment & Plan Assessment & Plan (1) Nephrolithiasis: Comment: 12/2018 lithrotrypsy and stent 01/2019 Dr. Lu Code(s): N20.0 - Calculus of kidney Category: Medical Plan In office urinalysis results reviewed with the patient today; as noted above. Recent KUB imaging results reviewed with the patient today; as noted above. Patient currently denies any bothersome urinary issues or concerns. She reports be happy with current voiding parameters. Continue drinking plenty of water daily. Continue vitamin B6. Continue adding 1 oz of lemon juice to water daily. Will obtain renal ultrasound in 1 year for surveillance monitoring. Follow-up in 1 year with imaging to be completed prior; or sooner with any issues, concerns, and or questions. Orders: Orders AMB Urinalysis Automated Today Z13.9 - Encounter for screening, unspecified US renal BI 1 Year N20.0 - Calculus of kidney Patient Instructions: The patient had an opportunity to ask questions regarding the treatment plan. All questions were answered. Physical exam, labs, and imaging were discussed and reviewed in detail. As well as risks, benefits, and discussion of treatment choices. No major barriers to understanding were identified. The patient expressed understanding and agreement with the above treatment plan. The patient was made aware they should contact our office by phone for worsening of their current condition, the appearance of new symptoms, or with any questions or concerns. Compliance is encouraged with any medications and follow up testing that is ordered. It is a privilege to be allowed the opportunity to participate in? your urological care.? Again, if you have any questions or concerns If you have any questions or concerns please do not hesitate to contact me. The office is [phone]. This note is constructed using voice recognition software. While every effort has been made to ensure accuracy milling machine operator gear errors may have been included. Yours sincerely, HARSHIL Bills Coding Level of Care Code Est Pt Level 3 (28377) Complex EM visit Add On G2211 Diagnoses Nephrolithiasis N20.0
== END 2024-04-12 11:50 | disposition home or self-care (01) ==
PROVIDERS: PCP Internal Medicine; Visit Provider Nurse Practitioner Family
DX: Z13.9 Encounter for screening, unspecified (principal)

== ENCOUNTER → 2024-04-12 10:58 | Outpatient (BNVA) | payer MEDICARE, OTHER, SELFPAY | PROVIDERS: PCP Internal Medicine; Visit Provider Nurse Practitioner Family | DX: N20.0 Calculus of kidney (principal) | CPT/HCPCS: 81003; 99212 ==

== ENCOUNTER 2024-04-19 11:52 | Outpatient (AMB) | payer MEDICARE, OTHER, SELFPAY ==
[2024-04-19 12:01] VITALS: BP 120/64; PULSE 84; O2SAT 95; BMI 26.6
--- NOTE | 2024-04-19 12:01 | A.OFFVIS_ITS ---
Intake Vital Signs 04/19/24 12:01 Height 5 ft 4 in Weight 155 lb BMI 26.6 BP 120/64 Blood Pressure Location Rt brachial Position Sitting Pulse 84 Pulse Source Pulse Oximeter Pulse Oximetry (%) 95 Oxygen Delivery Method Room Air Intake Visit Reasons: AWV Allergies Penicillins [PCN] Allergy (Unknown, Verified 04/19/24 12:03) SWELLING baclofen Adverse Reaction (Unknown, Verified 04/19/24 12:03) vivid dreams, agitation flu vaccine Allergy (Unknown, Uncoded 04/19/24 12:03) unknown Medication List - Last Reconciled 04/19/24 by Lisa Young MD amlodipine 10 mg PO DAILY aspirin 1 tab PO DAILY atorvastatin 20 mg PO DAILY azelastine 1 - 2 sprays intranasal BID cholestyramine (with sugar) 4 gram 4 grams PO BID ketorolac 0.5% drps ophthalmic (eye) levothyroxine 112 mcg PO DAILY loratadine (Claritin) 10 mg PO DAILY meclizine 25 mg PO BID PRN HPI AWV HPI Details Initiated the conversation about Advanced Directives. Advanced Directives help? patients prepare for current and future decisions about their medical treatment? and place of care. Discussed with patient that it is a process where a patients? current condition and prognosis are reviewed, their wishes for information? regarding their illness are elicited, and likely medical dilemmas are presented? and options discussed. The form can be amended as needed, reviewed yearly and? make changes as needed IPPE/AWV ? year old presents? for her ? Annual? Wellness Visit, initial visit.? Medical / Social History Reviewed? Past Medical History ?Yes? . ? [place]? of Care / Care Team list updated ?Yes . ? Surgical/Hospitalization? History ?Yes . ? Current Medications? (including OTC and supplements) ?Yes . ? Family History ?Yes? . ? Tobacco? Control form ?Yes . ? AUDIT-C (Alcohol use) form? ?Yes . ? Illicit drug use in Social? History ?Yes . ? Current diagnosis of? depression? ?No ? Appropriate PHQ2/PHQ9? completed ?Yes . ? Data entered by ?Medical? Program [facility] [employer] Work and reviewed by provider ? Fall Risk ? Fall? History? Have you had any falls with? injury in the past year? ?No . ? Have you had two or more? falls in the past year? ?No . ? Fall Risk Assessment: ?No? falls in the past year . ? HRA filled out by? the patient, reviewed by Provider and scanned. ? IPPE/AWV ? Balance? Romberg? ?Yes . ? Tandem? walk ?Yes . ? Walk and? Turn ?Yes . ? Rise from? sit to stand ?Yes . ?Vision? Corrective? lens ?Yes ? Vision? screen ? Up-to-date, has an appointment [] for vision? screening and glaucoma screening ?Hearing? Whisper? test ?pass .? Initiated the conversation about Advanced Directives. Advanced Directives help? patients prepare for current and future decisions about their medical treatment? and place of care. Discussed with patient that it is a process where a patients? current condition and prognosis are reviewed, their wishes for information? regarding their illness are elicited, and likely medical dilemmas are presented? and options discussed. The form can be amended as needed, reviewed yearly and? make changes as needed Written? Plan?Completed. See Patient? Documents. [facility] Medical History Constipation Orthostatic hypotension Aortic stenosis (~02/04/23) Annual physical exam Cough Back pain IBS (irritable bowel syndrome) CARMEN (dyspnea on exertion) Nephrolithiasis HTN (hypertension) Hypothyroidism Hyperlipidemia Surgical History History of cataract surgery History of heart surgery H/O colonoscopy Hx of cholecystectomy History of knee replacement procedure of right knee History of total abdominal hysterectomy Family History Father No problems noted. Mother No problems noted. Social History Housing: Condominium Alcohol intake: never Patient Tobacco Use Status: Never used Tobacco e-Cigarette/Vaping Use: Never Used Second Hand Smoke Exposure: No service: No Current occupational status: retired Cognitive needs: No Hearing needs: No Vision needs: Yes Questionnaire Medicare Wellness Checkup What is your age?: 79 or older What gender do you identify with?: female During the past 4 weeks, how much have you been bothered by emotional problems such as feeling anxious, depressed, irritable, sad or downhearted, and blue?: moderately During the past 4 weeks, has your physical & emotional health limited your social activities with family, friends, neighbors, or groups?: moderately During the past 4 weeks, how much bodily pain have you generally had?: mild pain During the past 4 weeks, was someone available to help you if you needed & wanted help?: yes, as much as I wanted During the past 4 weeks, what was the hardest physical activity you could do for at least 2 minutes?: moderate Can you get to places out of walking distance without help? (For eg., can you travel alone on buses, taxis or drive your car?): Yes Can you go shopping for groceries or clothes without someone's help?: No Can you prepare your own meals?: Yes Can you do your housework without help?: Yes Because of any health problems, do you need the help of another person with your personal care needs such as eating, bathing, dressing or getting around the house?: No Can you handle your own money without help?: Yes During the past 4 weeks, how would you rate your health in general?: good During the past 4 weeks how have things been going for you?: pretty well Are you having difficulties driving your car?: no Do you always fasten your seat belt when you are in a car?: yes, usually During past 4 weeks, have you been bothered by the following: never: Falling or dizzy when standing up, Sexual problems?, Teeth or denture problems? and Problems using the telephone? and sometimes: Trouble eating well? and Tiredness or fatigue? Have you fallen 2 or more times in the past year?: No Are you afraid of falling?: Yes Are you a smoker?: no During the past 4 weeks, how many drinks of wine, beer, or other alcoholic beverages did you have?: no alcohol at all Do you exercise for about 20 minutes 3 or more times a week?: yes, some of the time Have you been given information to help with the following?: yes: Hazards in your house that might hurt you? and no: Keeping track of your medications? How often do you have trouble taking medicines the way you have been told to take them?: I always take medicine as prescribed How confident are you that you can control & manage most of your health problems?: very confident What is your race?: White Mini Mental State Exam (MMSE) Orientation What is the (year) (season) (date) (day) (month)?: year, season, date, day and month Where are we (state) (county) (town or city) (hospital) (floor)?: state, county, town or city, hospital/clinic and floor Registration Name of 3 unrelated objects clearly and slowly, then ask patient to repeat all 3 of them. (1st repeat determines score. Make sure they can repeat all three): object 1, object 2 and object 3 Attention & Calculation (CHOOSE ONE) Spell WORLD backwards (DLROW): 5 letters Recall Ask patient to repeat the 3 items from question #3.: object 1, object 2 and object 3 Language Show patient a wristwatch & ask what it is. Repeat for pencil.: watch and pencil Ask the patient to repeat the phrase 'No ifs, ands, or buts' after you.: correct Ask the patient to 'take a piece of paper with their right hand' 'fold paper in half' 'place paper on floor': take paper in right hand, fold paper in half and place paper on floor Print the sentence 'CLOSE YOUR EYES' on a piece. If patient actually closes eyes then score.: followed written direction Give patient a blank piece of paper & ask to write a sentence. Score if it contains a noun & verb.: sentence contains subject and verb Score Score: 29 PHQ-9 Over the last 2 weeks, how often have you been bothered by any of the following problems? 1. Little interest or pleasure in doing things: not at all 2. Feeling down, depressed, or hopeless: not at all 3. Trouble falling or staying asleep, or sleeping too much: not at all 4. Feeling tired or having little energy: not at all 5. Poor appetite or overeating: not at all 6. Feeling bad about yourself - or that you are a failure or have let yourself or your family down: not at all 7. Trouble concentrating on things, such as reading the newspaper or watching television: not at all 8. Moving or speaking so slowly that other people could have noticed. Or the opposite - being so fidgety or restless that you have been moving around a lot more than usual: not at all 9. Thoughts that you would be better off or of hurting yourself in some way: not at all Total score: 0 Depression Screening Interpretation: Negative Depression Screening Done: Yes 63686 - PHQ-9 Billing: Yes Source: Developed by Drs. Filiberto Valero, Lindsey Roger, Liban Ko and colleagues, with an educational antonia from [employer]. Review of Systems Const All systems reviewed & are unremarkable except as noted in HPI and below Reports no additional complaints Eyes Reports no additional complaints ENT Reports no additional complaints Card Reports no additional complaints Resp Reports no additional complaints GI Reports no additional complaints Physical Exam Vital Signs: Last Vital Signs Pulse 84 04/19/24 12:01 BP 120/64 04/19/24 12:01 Pulse Ox 95 04/19/24 12:01 Oxygen Delivery Method Room Air 04/19/24 12:01 BMI result Body Mass Index 26.6 Assessment & Plan Assessment & Plan (1) Hyperlipidemia: Code(s): E78.5 - Hyperlipidemia, unspecified Plan: cont statin (2) Hypothyroidism: Code(s): E03.9 - Hypothyroidism, unspecified Plan: Continue levothyroxine check TSH (3) HTN (hypertension): Code(s): I10 - Essential (primary) hypertension Plan: Continue current medications (4) Aortic stenosis: Onset Date: ~02/04/23 Comment: Echo severe , 12/22, 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 Patient has follow-up with cardiology next month and will have annual echocardiogram in July Orders: Orders Complete Blood Count Auto Diff Today D64.9 - Anemia, unspecified, E03.9 - Hypothyroidism, unspecified, E78.5 - Hyperlipidemia, unspecified, I10 - Essential (primary) hypertension, I35.0 - Nonrheumatic aortic (valve) stenosis TSH reflex Free T4 Today D64.9 - Anemia, unspecified, E03.9 - Hypothyroidism, unspecified, E78.5 - Hyperlipidemia, unspecified, I10 - Essential (primary) hypertension, I35.0 - Nonrheumatic aortic (valve) stenosis Comprehensive Met. Panel Today D64.9 - Anemia, unspecified, E03.9 - Hypothyr oidism, unspecified, E78.5 - Hyperlipidemia, unspecified, I10 - Essential (primary) hypertension, I35.0 - Nonrheumatic aortic (valve) stenosis B Type Natriuretic Peptide Today D64.9 - Anemia, unspecified, E03.9 - Hypothyroidism, unspecified, E78.5 - Hyperlipidemia, unspecified, I10 - Essential (primary) hypertension, I35.0 - Nonrheumatic aortic (valve) stenosis IRON PROFILE Today D64.9 - Anemia, unspecified, E03.9 - Hypothyroidism, unspecified, E78.5 - Hyperlipidemia, unspecified, I10 - Essential (primary) hypertension, I35.0 - Nonrheumatic aortic (valve) stenosis Vitamin D 25-OH Total Today E55.9 - Vitamin D deficiency, unspecified XR chest 1V Today R06.00 - Dyspnea, unspecified Medications: Discontinued ferrous sulfate Discontinued Reason: Doctor's Order 325 mg PO Q OTHER DAY 30 tabs 0RF Quality Reporting (2019) Depression/Bipolar (159/160/161/177) PHQ-9: Total score: 0 Coding Level of Care Code Medicare Subsequent (G0439) Diagnoses Hyperlipidemia E78.5 Hypothyroidism E03.9 HTN (hypertension) I10 Aortic stenosis I35.0 Anemia D64.9 CARMEN (dyspnea on exertion) R06.00 CPT Codes Advance Care Planning - Advance Care Planning discussion: On file, no changes ([id number]) Advance Care Planning - Time spent: 1-15 minutes, on File ([id number]) Additional Codes PHQ-9 - 31707 - PHQ-9 Billing: Yes ([id number]) Advance Care Planning Advance Care Planning discussion: On file, no changes Forms completed: Health Care Proxy Time spent: 1-15 minutes, on File Did not discuss due to Cultural/Spiritual beliefs: Yes
== END 2024-04-19 12:34 | disposition home or self-care (01) ==
PROVIDERS: PCP Internal Medicine; Visit Provider Internal Medicine
DX: Z00.00 Encounter for general adult medical examination without abnormal findings (principal); E78.5 Hyperlipidemia, unspecified; E03.9 Hypothyroidism, unspecified; I10 Essential (primary) hypertension; I35.0 Nonrheumatic aortic (valve) stenosis; D64.9 Anemia, unspecified; R06.00 Dyspnea, unspecified

== ENCOUNTER 2024-04-19 11:52 | Outpatient (REF) | payer MEDICARE, OTHER, SELFPAY ==
--- NOTE | ~2024-04-19 | XR_ITS ---
EXAMINATION: XR CHEST CLINICAL INFORMATION: R06.00 - Dyspnea, unspecified COMPARISON: None available. TECHNIQUE: Frontal view of the chest was obtained. FINDINGS: Lungs hyperaerated but grossly clear. Heart and pulmonary vessels normal. Aortic stent graft is noted. XR/XR chest 1V IMPRESSION: No active disease. Electronically signed by: Garcia Kennedy MD 04/20/2024 04:27 PM EST
[2024-04-19 16:11] LABS: MANUAL DIFF FLAG NO
[2024-04-19 16:14] LABS: Basophils Absolute Auto 0.1 X10*3/uL (0.0-0.2); Basophils Percent Auto 0.8 % (0-2); Eosinophils Absolute Auto 0.2 X10*3/uL (0.0-0.4); Eosinophils Percent Auto 1.8 % (0-4); Hematocrit 38.6 % (37.0-47.0); Hemoglobin 12.8 g/dl (12.0-16.0); Imm Gran Abs Auto 0.03 X10*3/uL (0.00-0.03); Imm Gran Pct Auto 0.4 % (0.0-0.4); Lymphocytes Absolute Auto 1.4 X10*3/uL (1.2-4.9); Lymphocytes Percent Auto 17.1 % (20-40); Mean Corpuscular HGB Conc 33.2 g/dl (31.0-35.0); Mean Corpuscular Hemoglobin 28.6 pg (27.0-33.0); Mean Corpuscular Volume 86.4 fL (80.0-98.0); Mean Platelet Volume 10.7 fL (9.4-12.3); Monocytes Absolute Auto 0.6 X10*3/uL (0.1-1.2); Neutrophils Absolute Auto 6.2 x10*3/uL (2.0-8.3); Neutrophils Percent Auto 72.9 % (45-73); Platelet Count 230 X10*3/uL (160-400); Red Blood Count 4.47 X10*6/uL (4.20-5.50); Red Cell Distribution Width 15.6 % (11.0-16.0); White Blood Count 8.4 X10*3/uL (4.8-10.8)
[2024-04-19 17:05] LABS: B Type Natriuretic Peptide 106 pg/mL (<100)
[2024-04-19 17:48] LABS: Alkaline Phosphatase 76 U/L (39-117); Anion Gap 12 (12-20); Aspartate Amino Transferase 29 U/L (5-31); Bilirubin Total 0.4 mg/dL (0.0-1.0); Blood Urea Nitrogen 16 mg/dL (9-16); Calcium 9.6 mg/dL (8.4-10.2); Carbon Dioxide 25 mmol/L (22-29); Chloride 104 mmol/L (96-108); Estimated Glomerular Filt Rate 41; Glucose Random 173 mg/dL (60-115); Iron 57 mcg/dL (30-160); Percent Iron Saturation 19 % (15-50); Potassium 3.8 mmol/L (3.3-5.1); Sodium 137 mmol/L (135-145); Total Iron Binding Capacity 304 mcg/dL (228-428); Total Protein 7.2 g/dL (6.5-8.0); Unsaturated Iron Binding 247 ug/dL
[2024-04-19 18:01] LABS: Alanine Aminotransferase 29 U/L (0-31)
[2024-04-19 18:06] LABS: TSH reflex Free T4 0.44 uIU/mL (0.32-4.0); Vitamin D 25-OH Total 18.7 ng/mL (>30)
== END 2024-04-19 11:53 | disposition home or self-care (01) ==
LOC: HO.HMGCX 11:52
PROVIDERS: PCP Internal Medicine; Visit Provider Internal Medicine
DX: E78.5 Hyperlipidemia, unspecified (principal); E03.9 Hypothyroidism, unspecified; I10 Essential (primary) hypertension; I35.0 Nonrheumatic aortic (valve) stenosis; D64.9 Anemia, unspecified; R06.00 Dyspnea, unspecified; Z79.899 Other long term (current) drug therapy; E55.9 Vitamin D deficiency, unspecified
CPT/HCPCS: 36415; 71045; 80053; 82306; 83540; 83880; 84443; 85025; 96127

== ENCOUNTER → 2024-06-09 09:49 | Outpatient (BNVA) | payer MEDICARE, OTHER, SELFPAY | PROVIDERS: PCP Internal Medicine; Visit Provider Student in an Organized Health Care Education/Training Program | DX: M70.61 Trochanteric bursitis, right hip (principal); M70.62 Trochanteric bursitis, left hip; M17.12 Unilateral primary osteoarthritis, left knee | CPT/HCPCS: 20610; 99212; J2003; J3300 ==

== ENCOUNTER 2024-07-18 13:25 | Outpatient (REF) | payer MEDICARE, OTHER, SELFPAY ==
--- NOTE | ~2024-07-18 | MM_ITS ---
EXAMINATION: DXA BONE DENSITY AXIAL HISTORY: Estrogen deficiency TECHNIQUE: Senseg Dual energy absorptiometry (DEXA) of the lumbar spine, total left hip, and femoral neck was performed. COMPARISON: There are no prior studies for comparison. FINDINGS: The bone mineral density of the lumbar spine is 1.155 with a T-score of -0.2, and a Z-score of 1.7. The bone mineral density of the left total hip is 0.750 with a T-score of -2.0, and a Z-score of 0.4. The bone mineral density of the left femoral neck is 0.754 with a T-score of -2.0, and a Z-score of 0.5. FRACTURE RISK: The FRAX index suggests a risk of major osteoporotic fracture of 13.3%, and of hip fracture 4.4%. MM/XR DEXA axial skeleton IMPRESSION: Based on bone mineral density, and according to World Health Organization (WHO) criteria, the diagnosis is consistent with osteopenia. All bone density values are in grams per centimeter squared (g/cm2). Statistically, 68% of repeat scans fall within 1 SD (+/- 0.010 g/cm2 for AP spine L1-L4) and 1 SD (+/- 0.012 g/cm2 for femur total) FRAX is a trademark of the [employer] [place] [facility] Met[employer] Disease, a World Health Organization (WHO) Collaborating Center. Electronically signed by: Filiberto Baez MD 07/18/2024 02:56 PM EDT
--- OUTSIDE RECORDS SUMMARY | 2024-07-18 15:47 | XMS_ITS | Patient Health Record ---
[facility] Address [address] [place] [address] Care Team Providers Care Fire Support Specialist Name Role Phone Lisa Young MD Primary Care Provider Unavaila ble Black, Sarah Unavailable [phone] Allergies Allergen (clinical drug ingredient) Drug/Non Drug Allergy documented on EMR Reaction Allergy Type Onset Date Status amoxicillin Amoxicillin Unknown Drug Allergy Act george Cortisone cheeks flush Drug Allergy Acti ve Flu Virus Vaccine Unknown Drug Allergy Active Reason For Referral No Information Medications Medication SIG (Take, Route, Frequency, Duration) Notes Start Date End Date Status Premarin 0.3 MG 1 tablet Orally Kristy y for Three Weeks, 1 Week off for 30 day(s) Not-Takin g Vitamin B12 1000 MCG 1 tablet Orally Onc e a day for 30 day(s) Active Atorvastatin Calcium 20 MG 1 tablet Oral ly Once a day for 30 day(s) Active Glucosamine Chondroitin Adv as directed Orally Not-Takin g Metoprolol Succinate ER 25 MG 1 tablet Orally Once a day for 30 day(s) Active Synthroid 88 MCG 1 tablet on an empty stomach in the morning Orally Once a day for 30 day(s) Not-Taking Vitamin B-6 100 MG 1 tablet Orally Once a day for 30 day(s) Active Loratadine 10 MG 1 tablet Orally Once a day for 30 day(s) Active Cholestyramine 4 GM 1 packet mixed with water or non-carbonated drink Orally Twice a day for 30 day(s) Not-Taking Osteo Bi-Flex Regular Strength 250-200 MG 1 tablet with a meal Orally Once a day for 30 day(s) Not-Taking amLODIPine Besylate 2.5 MG Orally Not-Taking Omeprazole 20 MG 1 capsule Orally Onc e a day for 30 day(s) Not-Taking Levothyroxine Sodium 100 MCG 1 tablet in the morning on an empty stomach Orally Once a day Active Furosemide 10 MG 1 tablet Orally Once a day for 30 day(s) Not-Taking Azelastine HCl 137 MCG/SPRAY 1 puff in each nostril Nasally Twice a day for 30 day(s) Active Aspirin 81 MG 1 tablet Orally Once a day for 30 day(s) Not-Taking metFORMIN HCl 500 MG 1 tablet with a jennifer l Orally Once a day for 30 day(s) Active Vitamin D3 2000 units 1 capsule Orally O nce a day for 30 day(s) Not-Taking Social History Tobacco Use: Social History Observation Description Date Details (start date - stop date) Never Smoker NA - NA Tobacco Use/Smoking Question Answer Notes Are you a: nonsmoker Alcohol Screen Question Answer Notes Did you have a drink containing alcohol in the p ast year? No Points 0 Interpretation Negative Tobacco use other than smoking: Question Answer Notes Are you an other tobacco user? 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) Active confirmed Plan Of Treatment Pending Test Test Name Order Date [id number] NAIL, 6 OR MORE 01/11/2020 [id number] NAIL, 6 OR MORE 06/24/2020 [id number] SKIN LESIONS, OVER 4 01/11/20 20 [id number] SKIN LESIONS, OVER 4 06/24/19 21 [id number] SKIN LESIONS, OVER 4 04/11/20 12 [id number] NAIL(S) 04/11/2012 Insurance Providers Payer Name Payer Address Payer Phone Subscriber Number Group Number Insured Name Patient Relationship to Insured Coverage Start Date Coverage End Date Medicare National [facility] [employer] [address] [place] [address] [phone] [id number] Liya Dang Self - patient is the insured [employer]is [address] [place] [phone] [id number] Liya Dang Self - patient is the insured Medical (General) History Medical History History ICD Code Arthritis back, hip, knee pain type II diabetes diverticulosis Hiatal hernia thyroid disorder chicken pox IBS Cataracts High blood pressure Knee replacement hot flashes Surgical History Surgery Date(Month/Year) strangulated stomach 03/2010 Hysterectomy 1949 knee replacement 11/05/2018 Stem Placement 01/30/2019 Lithroscopy 12/07/2018 gall bladder 05/04/1999 Hospitalization History Reason Date(Month/Year) Patient went to [facility] for she woke up and saw a bright light. They were questioning a stroke. She stayed for 2 nights. 03/2012
--- OUTSIDE RECORDS SUMMARY | 2024-07-18 15:47 | XMS_ITS ---
[facility] Address [address] [place] [address] Care Team Providers Care Active Directory Administrator Name Role Phone Lisa Young MD Primary Care Provider Unavaila Sarah Rivera Unavailable [phone] Garo Lay Unavailable [phone] Allergies Allergen (clinical drug ingredient) Drug/Non Drug Allergy documented on EMR Reaction Allergy Type Onset Date Status amoxicillin Amoxicillin Unknown Drug Allergy Act george Cortisone cheeks flush Drug Allergy Acti ve Flu Virus Vaccine Unknown Drug Allergy Active REASON FOR VISIT Last PCP Visit: 03/19/23, At Risk Footcare, Painful Toe(s), Heel pain Medications Medication SIG (Take, Route, Frequency, Duration) Notes Start Date End Date Status Osteo Bi-Flex Regular Strength 250-200 MG 1 tablet with a meal Orally Once a day for 30 day(s) Not-Taking Omeprazole 20 MG 1 capsule Orally Onc e a day for 30 day(s) Not-Taking Furosemide 10 MG 1 tablet Orally Once a day for 30 day(s) Not-Taking Aspirin 81 MG 1 tablet Orally Once a day for 30 day(s) Not-Taking Vitamin D3 2000 units 1 capsule Orally O nce a day for 30 day(s) Not-Taking Premarin 0.3 MG 1 tablet Orally Kristy y for Three Weeks, 1 Week off for 30 day(s) Not-Takin g Vitamin B12 1000 MCG 1 tablet Orally Onc e a day for 30 day(s) Active Glucosamine Chondroitin Adv as directed Orally Not-Takin g Synthroid 88 MCG 1 tablet on an [...] Twice a day for 30 day(s) Not-Taking amLODIPine Besylate 2.5 MG Orally Not-Taking Azelastine HCl 137 MCG/SPRAY 1 puff in each nostril Nasally Twice a day for 30 day(s) Active metFORMIN HCl 500 MG 1 tablet with a jennifer l Orally Once a day for 30 day(s) Active Atorvastatin Calcium 20 MG 1 tablet Oral ly Once a day for 30 day(s) Active Metoprolol Succinate ER 25 MG 1 tablet Orally Once a day for 30 day(s) Active Levothyroxine Sodium 100 MCG 1 tablet in the morning on an empty stomach Orally Once a day Active Social History Tobacco Use: Social History Observation [...] Are you an other tobacco user? 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 pdf (DIABETIC FOOT CARE INSTRUCTIONS. 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 (ICD-10 - M21.6X2) Plan Of Treatment Treatment Notes Assessment Notes Type 2 diabetes mellitus wit h diabetic polyneuropathy Patient Educated with: DIABETIC FOOT CARE INSTRUCTIONS.pdf (DIABETIC FOOT CARE INSTRUCTIONS.pdf) Next Appt Details Follow Up: prn, Reason: Progress Notes * Liya CANNON DDOB:1935 (87 yo F)Acc No.[id number]:04/01/2023 Progress Note Patient:?Liya Cannon D Provider:?Garo Lay DPM :1935???Age:87 Y???Sex:Female D ate:04/01/2023 Address:[address] [place], [place] [id number] Pcp:Lisa Young MD Subjective: * Chief Complaints: * ???Last PCP Visit: 03/19/23 t Risk FootcarePainful Toe(s)Heel pain * HPI: ???At Risk footcare:?Pt States Last PCP Visit:?Date?03/19/2023 ???Toe pain:?Nature:?stiffness , aching.?Location:?B/L feet-especially 3 rd left.?Duration:?several years.?Onset/Cause:?gradual.?Course:?progressive.?Aggrevated by:?shoes, any pressure.?Treatments:?change in shoes.?Severity/Quality:?moderate , severe.? * ROS:?General/Constitutional:?Nausea?denies, denies.?Vomiting?denies, denies.?Hunger Thirst?denies, denies.?Loss appetite?denies, denies.?Chills?denies, denies.?Fatigue?denies, denies.?Fever?denies, denies.?Night Sweats denies, denies.?Unexplained weight loss?denies, denies.?Unexplained weight gain?denies, denies.?HEENTM:?Dentures?denies, denies.?Dizziness?denies, denies.?Glasses/contacts?admits, admits.?Retinopathy?denies, denies.?Blurred/double vision?denies, denies.?TMJ?denies, denies.?Discharge/drainage?denies, denies.?Implants?denies, denies.?Sore throat?denies, denies.?Dental implants?denies, denies.?Hard of hearing ?denies, denies.?Difficulty chewing/swallowing/speaking?denies, denies.?Nose bleeds?denies, denies.?Sore mouth?denies, denies.?Respiratory:?On Oxygen?denies, denies.?Pneumonia/pleurisy?denies, denies.?Bronchitis?denies, denies.?Emphysema?denies, denies.?Coughing?denies, denies.?Cough blood?denies, denies.?Shortness of breath?admits, admits.?Wheezing?denies, denies.?Cardiovascular:?Pacemaker?denies, denies.?MVP?denies, denies.?WPW?denies, denies.?CHF?denies, denies.?Heart attack?denies, denies.?Septal defect?denies, denies.?Rapid beat?denies, denies.?Chest pain ?denies, denies.?Atrial Fib.?denies, denies.?Murmur/Palpitations?denies, denies.?Gastrointestinal:?Hemorrhoids?denies, denies.?Stomach/Abdominal pain?admits, admits.?Dark blood stool?denies, denies.?Irritable bowel ?admits, admits.?Constipation?denies, denies.?Diarrhea?denies, denies.?Hematology:?Swelling?denies, denies.?Clots?denies, denies.?Varicose Veins?denies, denies.?Bruising?admits, admits.?Bleeding problem?denies, denies.?Genitourinary:?Blood urine?denies, denies.?Frequent/Painfu/urination/bladder control?denies, denies.?Kidney stones?admits, admits.?Infection (UTI)?denies, denies.?Nephropathy?denies, denies.?sex trans dis (STD)?denies, denies.?Prostate?denies, denies.?Musculoskeletal:?Hammertoes?admits, admits.?Bunions?admits, admits.?Back Pain?denies, denies.?Muscle Cramps/ Resting?denies, denies.?Muscle cramps / walking?denies, denies.?Generalized aches and pains?denies, denies.?Weakness?denies, denies.?Integ.:?No?denies, denies.?Scars?denies, denies.?Corns/calluses?admits, admits.?Ingrown nails?denies, denies.?Painful nails?denies, denies.?Open Sores?denies, denies.?Rashes?denies, denies.?Neurologic:?Difficulty sleeping?denies, denies.?Brain disorder?denies, denies.?Numbness?denies, denies.?Balance trouble?admits, admits.?Confusion?denies, denies.?Fainting/blackouts?denies, denies.?Tingling?denies, denies.?Tremors?denies, denies.? * Medical History:? * Surgical History:?strangulat ed stomach 03/2010Hysterectomy 1949knee replacement 11/05/2018Stem Placement 01/30/2019Lithroscopy 12/07/2018gall bladder 05/04/1999 * Hospitalization/Major Diagno stic Procedure:?Patient went to [facility] woke up and saw a bright light. They were questioning a stroke. She stayed for 2 nights. 03/2012 * Family History:?Mother: dece ased, diabetes, diagnosed with Diabetic - NIDDM.?Father: , diabetes, high blood pressure.?Paternal uncle: diabetes.?Siblings: cancer, diagnosed with Other malignant neoplasm of unspecified site.? * Social History:?Tobacco Use:?Tobacco Use/Smoking?Are you a:?nonsmoker ?Tobacco use other than smoking?Are you an other tobacco user??No ???Drugs/Alcohol:?Drugs?Have you used drugs other than those for medical reasons in the past 12 months??No ?Alcohol Screen?Did you have a drink containing alcohol in the past year??No ?Points?0 ?Interpretation?Negative ???Miscellaneous:?no Caffeine. ?Children: yes, 2. ?no Exercise. ?Marital status: . ?Occupation: Retired. * Medications:?TakingMetoprolo l Succinate ER 25 MG Tablet Extended Release 24 Hour 1 tablet Orally Once a dayAtorvastatin Calcium 20 MG Tablet 1 tablet Orally Once a dayLevothyroxine Sodium 100 MCG Tablet 1 tablet in the morning on an empty stomach Orally Once a daymetFORMIN HCl 500 MG Tablet 1 tablet with a meal Orally Once a dayAzelastine HCl 137 MCG/SPRAY Solution 1 puff in each nostril Nasally Twice a dayLoratadine 10 MG Tablet 1 tablet Orally Once a dayVitamin B-6 100 MG Tablet 1 tablet Orally Once a dayVitamin B12 1000 MCG Tablet Extended Release 1 tablet Orally Once a dayTaking Metoprolol Succinate ER 25 MG Tablet Extended Release 24 Hour 1 tablet Orally Once a dayTaking Atorvastatin Calcium 20 MG Tablet 1 tablet Orally Once a dayTaking Levothyroxine Sodium 100 MCG Tablet 1 tablet in the morning on an empty stomach Orally Once a dayTaking metFORMIN HCl 500 MG Tablet 1 tablet with a meal Orally Once a dayTaking Azelastine HCl 137 MCG/SPRAY Solution 1 puff in each nostril Nasally Twice a dayTaking Loratadine 10 MG Tablet 1 tablet Orally Once a dayTaking Vitamin B-6 100 MG Tablet 1 tablet Orally Once a dayTaking Vitamin B12 1000 MCG Tablet Extended Release 1 tablet Orally Once a dayNot-Taking/PRNamLODIPine Besylate 2.5 MG Tablet Orally Cholestyramine 4 GM Packet 1 packet mixed with water or non-carbonated drink Orally Twice a dayPremarin 0.3 MG Tablet 1 tablet Orally Daily for Three Weeks, 1 Week offSynthroid 88 MCG Tablet 1 tablet on an empty stomach in the morning Orally Once a dayGlucosamine Chondroitin Adv Tablet as directed Orally Furosemide 10 MG Tablet 1 tablet Orally Once a dayOmeprazole 20 MG Capsule Delayed Release 1 capsule Orally Once a dayVitamin D3 2000 units Capsule 1 capsule Orally Once a dayAspirin 81 MG Tablet Chewable 1 tablet Orally Once a dayOsteo Bi-Flex Regular Strength 250-200 MG Tablet 1 tablet with a meal Orally Once a dayMedication List reviewed and reconciled with the patientNot-Taking/PRN amLODIPine Besylate 2.5 MG Tablet Orally Not-Taking/PRN Cholestyramine 4 GM Packet 1 packet mixed with water or non-carbonated drink Orally Twice a dayNot-Taking/PRN Premarin 0.3 MG Tablet 1 tablet Orally Daily for Three Weeks, 1 Week offNot-Taking/PRN Synthroid 88 MCG Tablet 1 tablet on an empty stomach in the morning Orally Once a dayNot-Taking/PRN Glucosamine Chondroitin Adv Tablet as directed Orally Not-Taking/PRN Furosemide 10 MG Tablet 1 tablet Orally Once a dayNot-Taking/PRN Omeprazole 20 MG Capsule Delayed Release 1 capsule Orally Once a dayNot-Taking/PRN Vitamin D3 2000 units Capsule 1 capsule Orally Once a dayNot-Taking/PRN Aspirin 81 MG Tablet Chewable 1 tablet Orally Once a dayNot-Taking/PRN Osteo Bi-Flex Regular Strength 250-200 MG Tablet 1 tablet with a meal Orally Once a dayMedication List reviewed and reconciled with the patient * Allergies:?Cortisone: cheeks flushAmoxicillinFlu Virus Vaccineyes[Allergies Verified] Objective: * Vitals:?Ht: 5 ft 4 in, Wt: 1 41, BMI: 24.2, Shoe size: 10, BS: not taken, Wt-k.96 kg. * ???Past Orders: ???Lab:HEMOGLOBIN A1C (GLYCO HEMOGLOBIN) (Order Date - 04/01/2023) (Collection Date - 12/01/2022) ? Value Reference Range ?HEMOGLOBIN A1C (HH) 6.1 * Examination: ???Ophthalmology Referral: ?DIABETES EYE EXAM?Diabetic Retinopathy Screening:?No ?Findings of Diabetic Eye Exam:?no retinopathy?General Examination: ?GENERAL APPEARANCE:?pleasant, alert, well nourished, well developed, well hydrated, with good attention to hygene/body habitus, and in no acute distress.?ORIENTED:?person, place, and time.?Neurological: ?SENSORY:?exam demonstrates, reduced vibration lower extremity, B/L, at forefoot and midfoot, reduced sharp/dull pin prick discrimination , 5.07 monofilament test performed at plantar aspects of 5 varied sites per foot shows sensation, reduced , B/L,.?Vascular: ?DP PULSES:?2/4, B/L.?PT PULSES:?0/4, B/L.?SKIN TEMPERTURE GRADIENT OF THE LOWER EXTERMITIES:?decreased, cool to cold, proximal to distal, B/L.?HAIR GROWTH/TEXTURE/ELASTICITY/TURGOR:?decreased, B/L.?EDEMA:?1/4, B/L.?TELANGECTASIA:?moderate.?Nails: ?NAILS are:?Elongated, overgrown, dystrophic, lytic, greater than 3mm thick, discolored and friable with crumbly malodorous subungual debris, with pain on palpation, , TA , T1 , T5.?Dermatologic: ?SKIN FINDINGS:?Skin exam reveals keratotic lesion(s) located at, TA, T2, T5, T6, T6, SUB MTH (s), 1, B/L , Heel, B/L .?Orthopedic: ?GAIT ABNORMALITY:? Pronated, appropulsive.?BUNION:?Medially prominet 1st MPJ, B/L, Lateral tracking 1st MPJ incompletely reducable.?DIGITAL DEFORMITIES:?Digital contracture, 2-5 lady, Reveals pain/swelling/redness/enlargement of PIPJ , T2.?Heel Pain: ?INSPECTION:?Pain on Heel Compression present Pain on Palp of plantar central apect of the heel. Keraotisis present .atrophy of fat pad noted.? 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 Plan: * Treatment: * Procedure Codes:? * Preventive Medicine:? ??Counseling:?Discussion:?-14: Office or other outpatient visit for the evaluation and management of an established patient, which required a medically appropriate history and/or examination and MODERATE level of DECISION MAKING for: 1 OR MORE CHRONIC PROBLEM(S) THATS WORSENING, 2 STABLE CHRONIC PROBLEMS, A NEWLY DIAGNOSED PROBLEM WITH UNCERTAIN PROGNOSIS, AN ACUTE COMPLICATED INJURY WITH MULTIPLE TREATMENT OPTIONS, OR AN ACUTE PROBLEM WITH ACCOMPANYING SYSTEMIC SYMPTOMS, THAT POSE(S) A MODERATE RISK OF MORBIDITY. THIS CONDITION MAY ALSO INCLUDE RX DRUG MANAGEMENT, OR A DECISON FOR MINOR SURGERY. The visit on the day of the encounter encompassed interpreting the data and educating the patient as to the nature of their condition, treatment options available according to their individual PMH, meds, allergies, and overall health/living conditions, as well as any potential risks or complications that may occur from a failure to adhere to, and participate in, the recommended course of therapy. The discussion included a complete verbal, and/or written explanation of the examination results, any x-rays taken, the proposed diagnosis, and outline of the treatment plan. A schedule for future care needs was also explained. The patient verbalized an understanding of the instructions at this time and agreed to be an active participant in their treatment. If the patient should think of any questions or concerns after the visit, I have encouraged the patient to call the office.?Fungal Nail Counseling:?The patient was counseled on the diagnosis, potential etiologies (including, but not limited to, environmental factors, genetic, immune deficiency), and the multiple treatment options for Onychomycosis. We discussed the risks and benefits of each option from performing no treatment, to ultraviolet light shoe treatment, to laser nail treatment, to applying topical antifungals, to taking oral antifungal medication, to surgical removal of the involved nail(s) with or without performing a matricectomy, or any combination thereof. We discussed the advantages and disadvantages of each of possible treatment and importance for adherence to all the recommended therapies for optimum success. This includes the necessity for weekly emery board self nail home debridements, and control the nail and skin environment as much as possible by only using a fresh, dry pair of shoes/socks each day, as well as keeping the skin as dry as possible through the use of sprays/powders if necessary. The patient was instructed to discard the emery board after use to prevent reinfection of the involved nail(s). We discussed the mycological and visual clinical effectiveness of topical vs oral antifungal treatments as well as each ones potential side effects and/or any patient- specific medication interactions. We discussed the reasons behind the important requirement of regular liver function testing with oral antifungal therapy for safety. Patient questions regarding use, dosage, successful outcomes, blood tests, and possible pharmaceutical interactions were reviewed and the patient verbalized that all answers were clearly understood, The Pt prefers topical treatment--rx vicks qd hs.?Shoe Gear Counseling:?The patient and I reviewed the types of shoes they should be wearing. My recommendation included obtaining a well-fitted shoe with a good supportive, non-foldable nor twistable sole, plenty of toe/room for the forefoot, and proper arch support. Based on todays examination, I recommended the patient look for new shoes, by having their feet professionally measured. We discussed that generally the best time of the day for a shoe fitting is the afternoon. Different shoes types and brands to best match the patients occupation and vocation were discussed. Specific brand selection will be up to the patient, their individual foot condition/deformities, and fit. The patient and I reviewed the standard new shoe break in period by wearing them for a few hours a day while checking for redness or sores as wear time is increased. The patient verbally confirmed to understanding the information discussed--recommend orthofeet shoes for pt.? * Follow Up:?prn * Images: * Sign off status: Completed true * Provider:?Garo Lay DPM Date:? 023 Generated for Jaun timmons/Chuy/Jayda on:?07/18/2024 03:47 PM EDT History and Physical Notes * HPI (History of Present Illness) Category Sub-Category Detail Notes Category Not es Toe pain Nature: stiffness , aching Location: B/L feet-especially 3 rd left Duration: several years Onset/Cause: gradual Course: progressive Aggravated by: shoes, any pressure Treatments: change in shoes Severity/Quality: moderate , severe At Risk footcare Pt States Last PCP Visit: Date: 3 Examination Category Sub-Category Detail Notes Category Not es Neurological SENSORY: exam demonstrate s, reduced vibration lower extremity, B/L, at forefoot and midfoot, reduced sharp/dull pin prick discrimination , 5.07 monofilament test performed at plantar aspects of 5 varied sites per foot shows sensation, reduced , B/L, Dermatologic SKIN FINDINGS: Skin exam reveal s keratotic lesion(s) located at, TA, T2, T5, T6, T6, SUB MTH (s), 1, B/L , Heel, B/L Orthopedic GAIT ABNORMALITY: Pronated, appropulsive BUNION: Medially prominet 1s t MPJ, B/L, Lateral tracking 1st MPJ incompletely reducable DIGITAL DEFORMITIES: Digital contracture , 2-5 lady, Reveals pain/swelling/redness/enlargement of PIPJ , T2 General Examination GENERAL APPEARANCE: pleasant , alert, well nourished, well developed, well hydrated, with good attention to hygene/body habitus, and in no acute distress ORIENTED: person, place, and t denice Ophthalmology Referral DIABETES EYE EXAM Diabetic Retinopa thy Screening:: No Findings of Diabetic Eye Exam:: no retin opathy Vascular DP PULSES (B): 2/4, B/L PT PULSES (B): 0/4, B/L TEMPERTURE GRADIENT (C): decreased, cool to cold, proximal to distal, B/L TROPHIC CONDITION-TEXTURE/ELASTICITY/TURGOR/HAIR GROWTH (B): decreased, B/L EDEMA (C): 1/4, B/L TELANGECTASIA: moderate Nails NAILS are: Elongated, overg rown, dystrophic, lytic, greater than 3mm thick, discolored and friable with crumbly malodorous subungual debris, with pain on palpation, , TA , T1 , T5 Heel Pain INSPECTION: Pain on Heel Com pression present Pain on Palp of plantar central apect of the heel. Keraotisis present .atrophy of fat pad noted
== END 2024-07-18 13:26 | disposition home or self-care (01) ==
LOC: HO.MAMMO 13:25
PROVIDERS: PCP Internal Medicine; Visit Provider Student in an Organized Health Care Education/Training Program
DX: M81.0 Age-related osteoporosis without current pathological fracture (principal)
CPT/HCPCS: 77080

== ENCOUNTER → 2024-07-18 13:30 | Outpatient (BNV) | payer MEDICARE, OTHER, SELFPAY | PROVIDERS: PCP Internal Medicine; Visit Provider Radiology Diagnostic Radiology | DX: E28.39 Other primary ovarian failure (principal) | CPT/HCPCS: 77080 ==